=== PATIENT | female | born 1945 | race Caucasian/White ===

== ENCOUNTER 2016-03-14 08:00 | Outpatient (CLI) | payer MEDICARE, OTHER | END 2016-03-14 08:01 | disposition home or self-care (01) | DX: R30.0 Dysuria (principal) ==

== ENCOUNTER 2016-04-21 14:15 | Outpatient (CLI) | payer MEDICARE, OTHER | END 2016-04-21 14:16 | disposition home or self-care (01) | DX: E11.9 Type 2 diabetes mellitus without complications (principal); N39.0 Urinary tract infection, site not specified ==

== ENCOUNTER 2017-07-09 11:29 | Emergency (ER) | payer MEDICARE, OTHER ==
[2017-07-09] MEDS ORDERED: ACETAMINOPHEN 325 MG TABLET PO STA (12:23)
--- NOTE | 2017-07-09 12:28 | ED Physician Documentation ---
History of Present Illness - Stated complaint Stated Complaint: LEFT HAND INJ - Chief complaint Chief Complaint: Ext Problem - Additonal information Additional information: hx from pt two falls last two days first time going down a steep hill and may have lost balance second times was just in [employer] no trip [place] had balance issues for many months now - no work up thus tez no CP or palp no syncope did hit L face and is on blood thinneers denies CRAIG denies neck pain denies CP denies AP scraped knees but can walk irene wrist pain not ill recently Review of Systems Constitutional: denies: Fever Ears: denies: Ear pain, Drainage/discharge Nose: denies: Epistaxis Cardiac: denies: Chest pain / pressure, Palpitations Respiratory: denies: Dyspnea Musculoskeletal: reports: Extremity pain. denies: Neck pain Neurologic: reports: Head injury. 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 - Present Medications Home Medications: Ambulatory Orders Medication Instructions Recorded Confirmed Aspirin 07/09/17 Atorvastatin Calcium [Lipitor] 07/09/17 Carvedilol 07/09/17 Esomeprazole Magnesium [Nexium] 07/09/17 Gabapentin 07/09/17 Hydrocodone/Acetaminophen 07/09/17 [Hydrocodone-Acetamin 5-325 mg] Insulin Aspart [Novolog Flexpen] 07/09/17 Insulin Glargine [Lantus Solostar] 07/09/17 Oxycodone HCl/Acetaminophen 1 each PO Q6HR PRN #15 tablet 07/09/17 [Percocet 5-325 mg Tablet] Sertraline [Zoloft] 07/09/17 Telmisartan/Hydrochlorothiazid 07/09/17 [Micardis Hct 80-25 mg Tablet] - Allergies Allergies/Adverse Reactions: Allergies Allergy/AdvReac Type Severity Reaction Status Date / Time No Known Drug Allergies Allergy Verified 07/09/17 11:44 - Social History Does the pt smoke?: No Smoking Status: Never smoker Does the pt drink ETOH?: No Does the pt have substance abuse?: No PD ED PE NORMAL - Vitals Vital signs reviewed: Yes - HEENT HEENT: Atraumatic, PERRL - Neck Neck: No bony TTP - Cardiac Cardiac: RRR - Respiratory Respiratory: No respiratory distress, Clear bilaterally - Abdomen Abdomen: Soft, Non tender - Back Back: No spinal TTP - Derm Derm: Normal color - Extremities Extremities: Other (L wrist and hand bruised and swollen no deformity, R hand bruised and swollen no deformity, MSV intact, knee with small abrasions but no effuison and full ROM s pain and ambulatory) Results - Vitals Vitals: Vital Signs - 24 hr 07/09/17 07/09/17 11:37 13:53 Temperature 36.5 C 36.3 C L Heart Rate 77 70 Respiratory 16 18 Rate Blood Pressure 157/73 H 164/55 H O2 Saturation 100 98 Oxygen O2 Source Room air - EKG (time done) 1229 Rate: Rate (enter#) (74) Rhythm: NSR Intervals: Prolonged QT QRS: Poor R wave progression - Labs Labs: Laboratory Tests 07/09/17 07/09/17 07/09/17 12:04 12:15 12:33 WBC 7.1 RBC 4.05 L Hgb 13.4 Hct 37.2 MCV 91.9 MCH 33.0 H MCHC 35.9 RDW 13.7 Plt Count 158 MPV 8.1 Neut # 4.5 Lymph # 1.5 [place] # 0.6 Eos # 0.4 Baso # 0.1 Absolute Nucleated RBC 0.00 Nucleated RBC % 0.0 PT INR Sodium Potassium Chloride Carbon Dioxide Anion Gap BUN Creatinine Estimated GFR (MDRD) Glucose POC Whole Bld Glucose 200 H Calcium Urine Color YELLOW Urine Clarity CLEAR Urine pH 5.5 Ur Specific [place] 1.025 Urine Protein TRACE Urine Glucose (UA) >=1000 H Urine Ketones NEGATIVE Urine Occult Blood NEGATIVE Urine Nitrite NEGATIVE Urine Bilirubin NEGATIVE Urine Urobilinogen 0.2 (NORMAL) Ur Leukocyte Esterase NEGATIVE Ur Microscopic Review NOT INDICATED Urine Culture Comments NOT INDICATED 07/09/17 07/09/17 12:33 12:33 WBC RBC Hgb Hct MCV MCH MCHC RDW Plt Count MPV Neut # Lymph # [place] # Eos # Baso # Absolute Nucleated RBC Nucleated RBC % PT 12.2 INR 1.1 Sodium 138 Potassium 3.6 Chloride 103 Carbon Dioxide 30 Anion Gap 5.0 L BUN 15 Creatinine 0.7 Estimated GFR (MDRD) 82 L Glucose 203 H POC Whole Bld Glucose Calcium 8.8 Urine Color Urine Clarity Urine pH Ur Specific [place] Urine Protein Urine Glucose (UA) Urine Ketones Urine Occult Blood Urine Nitrite Urine Bilirubin Urine Urobilinogen Ur Leukocyte Esterase Ur Microscopic Review Urine Culture Comments - Rads (name of study) CTH Radiology: See rad report (no acute, atherosclerosis, chronic white matter, age atrophy) hands Radiology: See rad report (fx base L 5th MC, possible right wrist triquetral fx) PD MEDICAL DECISION MAKING - ED course ED course: EKG done for rhythm - pt has no CP SOA nausea etc - low concern for ACS - is in sinus, prolonged QT, got med list from PMD and reviewed and only med that might contribute is phenergan and hydrocodone - will dc phenergan and change to oxycodone Departure - Departure Disposition: 01 Home, Self Care Clinical Impression: Prolonged QT interval Hand fracture, left Qualifiers: Encounter type: initial encounter Fracture type: closed Qualified Code(s): S62.92XA - Unspecified fracture of left wrist and hand, initial encounter for closed fracture Wrist fracture, right Qualifiers: Encounter type: initial encounter Fracture type: closed Qualified Code(s): S62.101A - Fracture of unspecified carpal bone, right wrist, initial encounter for closed fracture Condition: Good Instructions: ED Fx Wrist General, ED Fx Hand Closed Follow-Up: [facility] [Provider Group] Prescriptions: Oxycodone HCl/Acetaminophen [Percocet 5-325 mg Tablet] 1 each PO Q6HR PRN #15 tablet PRN Reason: Severe Pain Comments: The CT of your head does not show any injury or bleeding There is a broken bone in your left hand and a possible broken bone in your right wrist. Please wear the splint we gave you on both arms and follow up with orthopedics for further care Ice and elevation to decrease the swelling Tylenol as needed for the pain Your labs were fine except the blood sugar of 200. The EKG shows you are in a regular rhythm - but the QT interval (the time it takes for heart to recover before the next beat) is a bit long - this is often caused by medications and so I reviewed your medication list and two of your meds (phenergan and hydrocodone) can cause this problem - I suggest you stop the phenergan all together and I wrote a new prescription of percocet which has oxycodone instead of hydrocodone. Please follow up with your PMD to see if changing these medications helps
[2017-07-09 12:38] LABS: BILIRUBIN,URINE NEGATIVE (NEGATIVE); GLUCOSE, URINE (UA) >=1000 mg/dL (NEGATIVE); KETONES,URINE (UA) NEGATIVE (NEGATIVE); LEUKOCYTE ESTERASE, URINE NEGATIVE (NEGATIVE); NITRITE,URINE NEGATIVE (NEGATIVE); OCCULT BLOOD,URINE NEGATIVE (NEGATIVE); PH,URINE 5.5 PH (5.0-7.5); PROTEIN,URINE TRACE mg/dL (NEGATIVE); UROBILINOGEN,URINE 0.2 (NORMAL) E.U./dL (NORMAL)
[2017-07-09 12:39] LABS: CLARITY,URINE CLEAR (CLEAR)
[2017-07-09 12:40] LABS: BASOPHILS # (AUTO) 0.1 10^3/uL (0.0-0.1); BASOPHILS % (AUTO) 0.9 %; EOSINOPHILS # (AUTO) 0.4 10^3/uL (0.0-0.7); EOSINOPHILS % (AUTO) 5.9 %; HGB - HEMOGLOBIN 13.4 g/dL (12.0-16.0); LYMPHOCYTES # (AUTO) 1.5 10^3/uL (1.5-3.5); LYMPHOCYTES % (AUTO) 20.7 %; MEAN CORPUSCULAR HGB CONC 35.9 g/dL (32.0-36.0); MEAN CORPUSCULAR VOLUME 91.9 fL (81.0-99.0); MEAN PLATELET VOLUME 8.1 fL (7.9-10.8); MONOCYTES # (AUTO) 0.6 10^3/uL (0.0-1.0); MONOCYTES % (AUTO) 8.8 %; NEUTROPHILS # (AUTO) 4.5 10^3/uL (1.5-6.6); NEUTROPHILS % (AUTO) 63.7 %; PLT - PLATELET COUNT 158 10^3/uL (130-450); RED BLOOD COUNT 4.05 10^6/uL (4.20-5.40); RED CELL DISTRIBUTION WIDTH 13.7 % (12.0-15.0); WHITE BLOOD COUNT 7.1 x10^3/uL (4.8-10.8)
[2017-07-09 12:47] LABS: INR 1.1 (0.8-1.2); PT - PROTHROMBIN TIME 12.2 secs (9.9-12.6)
--- NOTE | 2017-07-09 12:53 | CT Report ---
EXAM: CT HEAD EXAM DATE: 07/09/2017 12:44 PM. CLINICAL HISTORY: Fall. Head injury. On blood thinners. COMPARISON: None. TECHNIQUE: Multiaxial CT images were obtained from the foramen magnum to the vertex. Reformats: Coron al. IV contrast: None. In accordance with CT protocol optimization, one or more of the following dose reduction techniques w ere utilized for this exam: automated exposure control, adjustment of mA and/or KV based on patient s ize, or use of iterative reconstructive technique. FINDINGS: Parenchyma: No intraparenchymal hemorrhage. No or focal mass effect, midline shift, or CT findings of acute infarction. Cple-aj-cicrcmio patchy periventricular and supratentorial white matter hypodensit ies, consistent with chronic ischemic microangiopathy. Minor bilateral basal ganglia dystrophic calci fications. [place]-white differentiation is otherwise distinct. Extraaxial Spaces: Diffusely prominent, compatible with age-related generalized volume loss. No subdu ral or epidural collections identified. Ventricles: Normal position. Mildly prominent compatible with central volume loss. Sinuses and Orbits: Imaged paranasal sinuses, orbits, and mastoids show no significant abnormality. Bones: No evidence of fracture or calvarial defect. Other: Calcified cavernous carotids and distal right vertebral artery. IMPRESSION: 1. No acute intracranial abnormality evident. No intracranial hemorrhage, space-occupying lesion, or fracture. 2. Age-related generalized volume loss. Xkie-fz-vjtfppmy chronic white matter disease. 3. Atherosclerosis. [facility] Referring Provider Line: [phone] SITE ID: [id number]
--- NOTE | 2017-07-09 13:17 | XRAY Report ---
EXAMS: 1. Right Hand Radiography 2. Left Hand Radiography EXAM DATE: 07/09/2017 01:05 PM. CLINICAL HISTORY: Hand pain, trauma COMPARISON: None. TECHNIQUE: 3 views each hand. FINDINGS: Right: Bones: Bones are osteopenic. There are several bony foci at the dorsal margin of the carpal row. Joints: No evidence of dislocation. Soft Tissues: No significant abnormalities are seen. Left: Bones: There is cortical irregularity suspicious for fracture through the base of the fifth carpal. B ones are osteopenic. Joints: No evidence of dislocation. Joint spacing is maintained. Soft Tissues: No significant abnormalities are seen. IMPRESSION: 1. There is cortical irregularity through the base of the left fifth metacarpal. This is consistent w ith fracture. 2. Corticated bony foci at the dorsal margin of the right wrist could represent age indeterminate tri quetral fracture. Alternatively, this could represent soft tissue calcification or chondrocalcinosis. 3. No evidence of dislocation. [facility] Referring Provider Line: [phone] SITE ID: [id number]
--- NOTE | 2017-07-09 13:18 | XRAY Report ---
EXAM: LEFT WRIST RADIOGRAPHY EXAM DATE: 07/09/2017 01:06 PM. CLINICAL HISTORY: Fall FOOSH. COMPARISON: None. TECHNIQUE: 3 views. FINDINGS: Bones: Corticated bony focus at the dorsal margin of the carpal bones probably represents chondrocalc inosis rather than a triquetral fracture. Findings within the hand are detailed separately. Joints: No evidence of dislocation. There is chondrocalcinosis. Soft Tissues: No unexpected soft tissue findings. IMPRESSION: 1. No clear evidence of acute fracture of the wrist. 2. Corticated bony focus at the dorsal margin of the carpal bones probably represents chondrocalcinos is rather than remote triquetral fracture. 3. Hand findings are detailed separately. [facility] Referring Provider Line: [phone] SITE ID: [id number]
[2017-07-09 13:55] VITALS: BP 164/55
[2017-07-09 14:14] LABS: CALCIUM 8.8 mg/dL (8.5-10.3); CREATININE 0.7 mg/dL (0.4-1.0)
== END 2017-07-09 14:27 | disposition home or self-care (01) ==
LOC: ED 11:29
DX: S62.307A Unspecified fracture of fifth metacarpal bone, left hand, initial encounter for closed fracture (principal); S80.219A Abrasion, unspecified knee, initial encounter; Z79.82 Long term (current) use of aspirin; W19.XXXA Unspecified fall, initial encounter; Y92.512 Supermarket, store or market as the place of occurrence of the external cause; E11.9 Type 2 diabetes mellitus without complications; E78.00 Pure hypercholesterolemia, unspecified; Z79.4 Long term (current) use of insulin; S09.90XA Unspecified injury of head, initial encounter
CPT/HCPCS: 36415; 70450; 73110; 73130; 80048; 81003; 85025; 85610; 93005; 99283; A9270; 81001; 87086

== ENCOUNTER 2017-09-11 12:53 | Outpatient (CLI) | payer MEDICARE, OTHER ==
--- NOTE | 2017-09-13 08:46 | DEXA Report ---
Procedure Date: 09/11/2017 Accession Number: [id number] / [id number] Procedure: DEX - Dexa Spine and/or Hip CPT Code: FULL RESULT: EXAM: Dexa Spine and/or Hip DATE: 09/11/2017 2:08 PM CLINICAL HISTORY: POSTMENOPAUSAL STATUS TECHNIQUE: Dual energy x-ray absorptiometry (DXA) was performed on a [employer] System. Regions measured are the AP Spine, femoral neck, and if needed forearm. COMPARISON: None. In accordance with the International Society for Clinical Densitometry (ISCD) guidelines, data from previous exams may be reanalyzed using current recommendations and techniques. This is done to allow a more accurate basis for comparison with the current study. FINDINGS: The data for the lumbar spine is as follows: BMD (g/cm/cm) T-SCORE Z-SCORE REGION L1 1.271 1.2 2.0 L2 1.324 1.0 1.9 L3 1.439 2.0 2.8 L4 1.334 1.1 1.9 TOTAL 1.346 1.4 2.2 NOTE: All evaluable vertebrae are used for classification The data for the hip is as follows: BMD (g/cm/cm) T-SCORE Z-SCORE REGION Neck 0.738 -2.2 -0.9 TOTAL 0.752 -2.0 -1.0 NOTE: The femoral neck or total proximal femur, whichever is lowest, is used for classification. IMPRESSION: THE WHO CLASSIFICATION BASED ON THE INTERNATIONAL REFERENCE STANDARD IS OSTEOPENIA. THE FRACTURE RISK IS INCREASED. RECOMMENDATION: Patients with diagnosis of osteoporosis or osteopenia should have regular bone mineral density assessment. For those eligible for Medicare, routine testing is allowed once every 2 years. Testing frequency can be increased for patients who have rapidly progressing disease or for those who are receiving medical therapy to restore bone mass. COMMENT: World Health Organization (WHO) definitions for osteoporosis and osteopenia: NORMAL BMD: T-score at -1.0 or higher, fracture risk is low OSTEOPENIA BMD: T-score between -1.0 and -2.5, fracture risk is increased. OSTEOPOROSIS BMD: T-score at -2.5 or lower, fracture risk is high. National Osteoporosis Foundation recommends: 1. Obtain adequate dietary calcium (at least 1200 mg per day) and vitamin D (400-800 international units per day). 2. Participate, as appropriate, in regular weightbearing and muscle-strengthening exercise. 3. Avoid tobacco use and reduce alcohol and caffeine intake. 4. For more detailed information see the website at www.NOF.org.
== END 2017-09-11 12:54 | disposition home or self-care (01) ==
LOC: DI 12:53
PROVIDERS: ATTEND Family Medicine
DX: I35.0 Nonrheumatic aortic (valve) stenosis (principal); Z78.0 Asymptomatic menopausal state; M85.89 Other specified disorders of bone density and structure, multiple sites
CPT/HCPCS: 77080; 93306

== ENCOUNTER 2018-10-08 08:00 | Outpatient (CLI) | payer MEDICARE, OTHER ==
[2018-10-08 12:39] LABS: BASOPHILS % (AUTO) 0.5 %; EOSINOPHILS # (AUTO) 0.4 10^3/uL (0.0-0.7); EOSINOPHILS % (AUTO) 6.9 %; HGB - HEMOGLOBIN 12.2 g/dL (12.0-16.0); LYMPHOCYTES # (AUTO) 1.3 10^3/uL (1.5-3.5); LYMPHOCYTES % (AUTO) 23.2 %; MEAN CORPUSCULAR HEMOGLOBIN 32.5 pg (27.0-31.0); MEAN CORPUSCULAR HGB CONC 34.4 g/dL (32.0-36.0); MEAN CORPUSCULAR VOLUME 94.7 fL (81.0-99.0); MEAN PLATELET VOLUME 9.9 fL (7.9-10.8); MONOCYTES # (AUTO) 0.5 10^3/uL (0.0-1.0); NEUTROPHILS # (AUTO) 3.4 10^3/uL (1.5-6.6); NEUTROPHILS % (AUTO) 60.2 %; PLT - PLATELET COUNT 168 10^3/uL (130-450); RED BLOOD COUNT 3.75 10^6/uL (4.20-5.40); RED CELL DISTRIBUTION WIDTH 13.4 % (12.0-15.0); WHITE BLOOD COUNT 5.7 x10^3/uL (4.8-10.8)
[2018-10-08 13:08] LABS: HEMOGLOBIN A1C 0.86 g/dL; HEMOGLOBIN A1C % 8.2 % (4.6-6.2)
[2018-10-08 13:17] LABS: PLATELET MORPHOLOGY NORMAL APPEARANCE (NORMAL)
[2018-10-08 13:18] LABS: PLATELET ESTIMATE, MANUAL NORMAL (130-450,000) (NORMAL); RBC MORPHOLOGY (MULTIPLE) 1+ POLYCHROMASIA (NORMAL)
[2018-10-08 13:19] LABS: ALBUMIN 3.4 g/dL (3.2-5.5); ALBUMIN/GLOBULIN RATIO 1.3 (1.0-2.2); ALKALINE PHOSPHATASE 63 IU/L (42-121); ALT ALANINE AMINOTRANSFERASE 14 IU/L (10-60); AST ASPARTATE AMINOTRANSFERASE 15 IU/L (10-42); BILIRUBIN,TOTAL 0.9 mg/dL (0.2-1.0); BUN - BLOOD UREA NITROGEN 14 mg/dL (6-20); CARBON DIOXIDE - CO2 27 mmol/L (21-32); CHLORIDE 102 mmol/L (101-111); CHOLESTEROL 208 mg/dL; CREATININE 0.8 mg/dL (0.4-1.0); GFR - MDRD 70 (>89); GLUCOSE 179 mg/dL (70-100); HDL CHOLESTEROL 52 mg/dL; LDL CHOLESTEROL,CALCULATED 120 mg/dL; LDL/HDL RATIO 2.3 (<4.4); SODIUM 141 mmol/L (135-145); TOTAL PROTEIN 6.1 g/dL (6.7-8.2); VLDL CHOLESTEROL 36 mg/dL
== END 2018-10-08 23:59 | disposition home or self-care (01) ==
LOC: LAB.WCP 08:00
PROVIDERS: ATTEND Family Medicine
DX: I10 Essential (primary) hypertension (principal); E11.8 Type 2 diabetes mellitus with unspecified complications
CPT/HCPCS: 36415; 80053; 80061; 83036; 83721; 84443; 85025

== ENCOUNTER 2019-03-10 08:00 | Outpatient (CLI) | payer MEDICARE, OTHER | END 2019-03-10 23:59 | disposition home or self-care (01) | LOC: LAB.R 08:00 | PROVIDERS: ATTEND Physician Assistant Medical | DX: S81.809A Unspecified open wound, unspecified lower leg, initial encounter (principal) | CPT/HCPCS: 87070; 87205 ==

== ENCOUNTER 2019-05-06 08:00 | Outpatient (CLI) | payer MEDICARE, OTHER ==
[2019-05-06 18:46] LABS: BASOPHILS # (AUTO) 0.1 10^3/uL (0.0-0.1); BASOPHILS % (AUTO) 0.7 %; EOSINOPHILS # (AUTO) 0.4 10^3/uL (0.0-0.7); EOSINOPHILS % (AUTO) 5.7 %; HGB - HEMOGLOBIN 13.2 g/dL (12.0-16.0); LYMPHOCYTES # (AUTO) 1.5 10^3/uL (1.5-3.5); LYMPHOCYTES % (AUTO) 19.6 %; MEAN CORPUSCULAR HEMOGLOBIN 32.1 pg (27.0-31.0); MEAN CORPUSCULAR HGB CONC 33.8 g/dL (32.0-36.0); MEAN CORPUSCULAR VOLUME 94.9 fL (81.0-99.0); MEAN PLATELET VOLUME 10.1 fL (7.9-10.8); MONOCYTES # (AUTO) 0.6 10^3/uL (0.0-1.0); MONOCYTES % (AUTO) 7.6 %; PLT - PLATELET COUNT 218 10^3/uL (130-450); RED BLOOD COUNT 4.11 10^6/uL (4.20-5.40); RED CELL DISTRIBUTION WIDTH 13.4 % (12.0-15.0); WHITE BLOOD COUNT 7.5 x10^3/uL (4.8-10.8)
[2019-05-06 19:01] LABS: HB2 TOTAL 13.8 g/dL; HEMOGLOBIN A1C 0.96 g/dL; HEMOGLOBIN A1C % 8.5 % (4.6-6.2)
[2019-05-06 19:06] LABS: ALBUMIN 3.7 g/dL (3.2-5.5); ALBUMIN/GLOBULIN RATIO 1.3 (1.0-2.2); ALKALINE PHOSPHATASE 61 IU/L (42-121); ALT ALANINE AMINOTRANSFERASE 10 IU/L (10-60); AST ASPARTATE AMINOTRANSFERASE 15 IU/L (10-42); BILIRUBIN,TOTAL 0.7 mg/dL (0.2-1.0); BUN - BLOOD UREA NITROGEN 15 mg/dL (6-20); CALCIUM 10.5 mg/dL (8.5-10.3); CARBON DIOXIDE - CO2 28 mmol/L (21-32); CHLORIDE 103 mmol/L (101-111); CHOL/HDL RATIO 3.7 (<4.4); CHOLESTEROL 197 mg/dL; CREATININE 0.8 mg/dL (0.4-1.0); GFR - MDRD 70 (>89); GLUCOSE 67 mg/dL (70-100); HDL CHOLESTEROL 53 mg/dL; LDL CHOLESTEROL,CALCULATED 106 mg/dL; SODIUM 140 mmol/L (135-145); TOTAL PROTEIN 6.6 g/dL (6.7-8.2); VLDL CHOLESTEROL 38 mg/dL
== END 2019-05-06 23:59 | disposition home or self-care (01) ==
LOC: LAB.WCP 08:00
PROVIDERS: ATTEND Family Medicine
DX: E11.65 Type 2 diabetes mellitus with hyperglycemia (principal); L03.115 Cellulitis of right lower limb
CPT/HCPCS: 36415; 80053; 80061; 83036; 83721; 84443; 85025; 87070; 87205

== ENCOUNTER 2019-07-09 08:00 | Outpatient (CLI) | payer MEDICARE, OTHER | END 2019-07-09 23:59 | disposition home or self-care (01) | LOC: LAB.R 08:00 | PROVIDERS: ATTEND Family Medicine | DX: L03.115 Cellulitis of right lower limb (principal) | CPT/HCPCS: 87070; 87077; 87181; 87205 ==

== ENCOUNTER 2019-10-24 12:04 | Emergency (ER) | payer MEDICARE, OTHER ==
[2019-10-24] MEDS ORDERED: SODIUM CHLORIDE 0.9% 1,000 ML IV STA ×2 (13:00→14:19)
--- NOTE | 2019-10-24 13:02 | ED Physician Documentation ---
History of Present Illness - Stated complaint Stated Complaint: GLF - Chief complaint Chief Complaint: General - History obtained from History obtained from: Patient, Family - History of Present Illness Timing: Today - Additonal information Additional information: 74-year old diabetic female has become weak over the last 2 weeks she has been profoundly weak and today she collapsed when her left knee gave out. She did not injure herself in the fall. She is concerned about her weakness and this has progressed over the past week. She reports polyuria polydipsia and denies fever or other intercurrent illness. Review of Systems Constitutional: denies: Fever Eyes: denies: Decreased vision Ears: denies: Ear pain Nose: denies: Rhinorrhea / runny nose, Congestion Throat: denies: Sore throat Cardiac: denies: Chest pain / pressure, Palpitations Respiratory: denies: Dyspnea, Cough GI: denies: Abdominal Pain, Nausea, Vomiting : reports: Frequency. denies: Dysuria Skin: denies: Rash Musculoskeletal: denies: Neck pain, Back pain, Extremity pain Neurologic: reports: Generalized weakness, Near syncope. 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 - Present Medications Home Medications: Ambulatory Orders Medication Instructions Recorded Confirmed Aspirin 07/09/17 Atorvastatin Calcium [Lipitor] 07/09/17 Esomeprazole Magnesium [Nexium] 07/09/17 Gabapentin 07/09/17 Hydrocodone/Acetaminophen 07/09/17 [Hydrocodone-Acetamin 5-325 mg] Insulin Aspart [Novolog Flexpen] 07/09/17 Insulin Glargine [Lantus Solostar] 07/09/17 Oxycodone HCl/Acetaminophen 1 each PO Q6HR PRN #15 tablet 07/09/17 [Percocet 5-325 mg Tablet] Sertraline [Zoloft] 07/09/17 Telmisartan/Hydrochlorothiazid 07/09/17 [Micardis Hct 80-25 mg Tablet] carvediloL [Carvedilol] 07/09/17 - Allergies Allergies/Adverse Reactions: Allergies Allergy/AdvReac Type Severity Reaction Status Date / Time No Known Drug Allergies Allergy Verified 10/24/19 12:48 - Social History Does the pt smoke?: No Smoking Status: Never smoker Does the pt drink ETOH?: No Does the pt have substance abuse?: No PD ED PE NORMAL - Vitals Vital signs reviewed: Yes (Normal) - General General: Alert and oriented X 3, No acute distress, Well developed/nourished - HEENT HEENT: Atraumatic, PERRL, EOMI - Neck Neck: Supple, no meningeal sign, No bony TTP - Cardiac Cardiac: RRR, No murmur - Respiratory Respiratory: No respiratory distress, Clear bilaterally - Abdomen Abdomen: Soft, Non tender - Back Back: No CVA TTP, No spinal TTP - Derm Derm: Normal color, Warm and dry, No rash - Extremities Extremities: No deformity, No edema, Other (mild anterior calf erythema bilaterally no different from usual) - Neuro Neuro: Alert and oriented X 3, machine printer 2-12 intact, No motor deficit, No sensory deficit, Normal speech Eye Opening: Spontaneous Motor: Obeys Commands Verbal: Oriented GCS Score: 15 - Psych Psych: Normal mood, Normal affect Results - Vitals Vitals: Vital Signs - 24 hr 10/24/19 10/24/19 10/24/19 12:48 12:49 14:00 Temperature 36.8 C Heart Rate 92 85 82 Respiratory 16 16 16 Rate Blood Pressure 130/76 145/68 H 140/78 H O2 Saturation 99 100 99 10/24/19 10/24/19 10/24/19 15:00 16:15 16:29 Temperature 36.9 C 36.7 C Heart Rate 85 79 85 Respiratory 16 17 16 Rate Blood Pressure 155/76 H 148/69 H 145/86 H O2 Saturation 99 100 99 Oxygen O2 Source Room air - Labs Labs: Laboratory Tests 10/24/19 10/24/19 10/24/19 12:14 12:34 12:34 WBC 5.5 RBC 3.88 L Hgb 13.0 Hct 35.9 L MCV 92.5 MCH 33.5 H MCHC 36.2 H RDW 12.4 Plt Count 216 MPV 10.1 Neut # (Auto) 3.4 Lymph # (Auto) 1.3 L [place] # (Auto) 0.4 Eos # (Auto) 0.4 Baso # (Auto) 0.0 Absolute Nucleated RBC 0.00 Nucleated RBC % 0.0 Sodium 134 L Potassium 3.7 Chloride 101 Carbon Dioxide 24 Anion Gap 9.0 BUN 15 Creatinine 0.7 Estimated GFR (MDRD) 81 L Glucose 430 H POC Whole Bld Glucose 419 H Calcium 9.5 Total Bilirubin 0.8 AST 13 ALT 12 Alkaline Phosphatase 70 Total Protein 6.3 L Albumin 3.4 Globulin 2.9 Albumin/Globulin Ratio 1.2 Lipase 49 Urine Color Urine Clarity Urine pH Ur Specific [place] Urine Protein Urine Glucose (UA) Urine Ketones Urine Occult Blood Urine Nitrite Urine Bilirubin Urine Urobilinogen Ur Leukocyte Esterase Ur Microscopic Review Urine Culture Comments 10/24/19 10/24/19 10/24/19 13:48 15:31 16:00 WBC RBC Hgb Hct MCV MCH MCHC RDW Plt Count MPV Neut # (Auto) Lymph # (Auto) [place] # (Auto) Eos # (Auto) Baso # (Auto) Absolute Nucleated RBC Nucleated RBC % Sodium Potassium Chloride Carbon Dioxide Anion Gap BUN Creatinine Estimated GFR (MDRD) Glucose POC Whole Bld Glucose 292 H 281 H Calcium Total Bilirubin AST ALT Alkaline Phosphatase Total Protein Albumin Globulin Albumin/Globulin Ratio Lipase Urine Color YELLOW Urine Clarity CLEAR Urine pH 5.0 Ur Specific [place] 1.015 Urine Protein NEGATIVE Urine Glucose (UA) >=1000 H Urine Ketones NEGATIVE Urine Occult Blood NEGATIVE Urine Nitrite NEGATIVE Urine Bilirubin NEGATIVE Urine Urobilinogen 0.2 (NORMAL) Ur Leukocyte Esterase NEGATIVE Ur Microscopic Review NOT INDICATED Urine Culture Comments NOT INDICATED 10/24/19 16:20 WBC RBC Hgb Hct MCV MCH MCHC RDW Plt Count MPV Neut # (Auto) Lymph # (Auto) [place] # (Auto) Eos # (Auto) Baso # (Auto) Absolute Nucleated RBC Nucleated RBC % Sodium Potassium Chloride Carbon Dioxide Anion Gap BUN Creatinine Estimated GFR (MDRD) Glucose POC Whole Bld Glucose 236 H Calcium Total Bilirubin AST ALT Alkaline Phosphatase Total Protein Albumin Globulin Albumin/Globulin Ratio Lipase Urine Color Urine Clarity Urine pH Ur Specific [place] Urine Protein Urine Glucose (UA) Urine Ketones Urine Occult Blood Urine Nitrite Urine Bilirubin Urine Urobilinogen Ur Leukocyte Esterase Ur Microscopic Review Urine Culture Comments PD MEDICAL DECISION MAKING - ED course Complexity details: reviewed results, re-evaluated patient, considered differential, d/w patient ED course: 74-year-old female with acute dehydration related to diabetes [id number] is administered intravenous saline and insulin. She has insulin at home and is able to do a sliding scale and after 2 L of fluid she is discharged home with the recommendation to continue resuscitation with subcu insulin to reduce the blood sugar below 200. Departure - Departure Disposition: 01 Home, Self Care Clinical Impression: Dehydration Uncontrolled diabetes mellitus Qualifiers: Diabetes mellitus type: type 2 Glycemic state: with hyperglycemia Qualified Code(s): E11.65 - Type 2 diabetes mellitus with hyperglycemia Condition: Stable Instructions: ED Hyperglycemia Diabetic, ED Dehydration Follow-Up: Laya Lutz DO [Primary Care Provider] - Discharge Date/Time: 10/24/19 16:33
[2019-10-24 13:19] LABS: BASOPHILS % (AUTO) 0.7 %; EOSINOPHILS # (AUTO) 0.4 10^3/uL (0.0-0.7); EOSINOPHILS % (AUTO) 6.9 %; LYMPHOCYTES # (AUTO) 1.3 10^3/uL (1.5-3.5); MEAN CORPUSCULAR HEMOGLOBIN 33.5 pg (27.0-31.0); MEAN CORPUSCULAR HGB CONC 36.2 g/dL (32.0-36.0); MEAN CORPUSCULAR VOLUME 92.5 fL (81.0-99.0); MEAN PLATELET VOLUME 10.1 fL (7.9-10.8); MONOCYTES # (AUTO) 0.4 10^3/uL (0.0-1.0); MONOCYTES % (AUTO) 7.6 %; NEUTROPHILS # (AUTO) 3.4 10^3/uL (1.5-6.6); NEUTROPHILS % (AUTO) 61.4 %; PLT - PLATELET COUNT 216 10^3/uL (130-450); RED BLOOD COUNT 3.88 10^6/uL (4.20-5.40); RED CELL DISTRIBUTION WIDTH 12.4 % (12.0-15.0); WHITE BLOOD COUNT 5.5 x10^3/uL (4.8-10.8)
[2019-10-24 13:34] LABS: ALBUMIN 3.4 g/dL (3.2-5.5); ALBUMIN/GLOBULIN RATIO 1.2 (1.0-2.2); BILIRUBIN,TOTAL 0.8 mg/dL (0.2-1.0); CALCIUM 9.5 mg/dL (8.5-10.3); CREATININE 0.7 mg/dL (0.4-1.0); TOTAL PROTEIN 6.3 g/dL (6.7-8.2)
[2019-10-24 14:11] LABS: BILIRUBIN,URINE NEGATIVE (NEGATIVE); CLARITY,URINE CLEAR (CLEAR); GLUCOSE, URINE (UA) >=1000 mg/dL (NEGATIVE); KETONES,URINE (UA) NEGATIVE (NEGATIVE); LEUKOCYTE ESTERASE, URINE NEGATIVE (NEGATIVE); NITRITE,URINE NEGATIVE (NEGATIVE); OCCULT BLOOD,URINE NEGATIVE (NEGATIVE); PROTEIN,URINE NEGATIVE (NEGATIVE); UROBILINOGEN,URINE 0.2 (NORMAL) E.U./dL (NORMAL)
[2019-10-24] MEDS ORDERED: INSULIN REGULAR HUMAN 100 UNIT/1 ML 10 ML MDV IVP STA (15:15)
[2019-10-24 16:33] VITALS: BP 145/86
== END 2019-10-24 16:33 | disposition home or self-care (01) ==
LOC: ED 12:04
DX: E86.0 Dehydration (principal); E11.65 Type 2 diabetes mellitus with hyperglycemia; Z79.4 Long term (current) use of insulin; Z79.82 Long term (current) use of aspirin
CPT/HCPCS: 36415; 80053; 81003; 83690; 85025; 96360; 96361; 99283; 99284; J1815; 81001; 87086

== ENCOUNTER 2019-11-14 07:00 | Outpatient (CLI) | payer MEDICARE, OTHER ==
[2019-11-14 20:19] LABS: HEMOGLOBIN A1c% 9.1 % (4.27-6.07)
== END 2019-11-14 23:59 | disposition home or self-care (01) ==
LOC: LAB.WCP 07:00
PROVIDERS: ATTEND Family Medicine
DX: E11.9 Type 2 diabetes mellitus without complications (principal)
CPT/HCPCS: 36415; 83036

== ENCOUNTER 2020-04-20 07:00 | Outpatient (CLI) | payer MEDICARE, OTHER ==
[2020-04-20 18:03] LABS: BASOPHILS # (AUTO) 0.1 10^3/uL (0.0-0.1); BASOPHILS % (AUTO) 0.9 %; EOSINOPHILS # (AUTO) 0.4 10^3/uL (0.0-0.7); EOSINOPHILS % (AUTO) 6.3 %; HGB - HEMOGLOBIN 12.3 g/dL (12.0-16.0); LYMPHOCYTES # (AUTO) 1.4 10^3/uL (1.5-3.5); LYMPHOCYTES % (AUTO) 23.9 %; MEAN CORPUSCULAR HEMOGLOBIN 33.5 pg (27.0-31.0); MEAN CORPUSCULAR VOLUME 95.6 fL (81.0-99.0); MEAN PLATELET VOLUME 10.2 fL (7.9-10.8); MONOCYTES # (AUTO) 0.4 10^3/uL (0.0-1.0); MONOCYTES % (AUTO) 7.2 %; NEUTROPHILS # (AUTO) 3.5 10^3/uL (1.5-6.6); NEUTROPHILS % (AUTO) 61.3 %; PLT - PLATELET COUNT 159 10^3/uL (130-450); RED BLOOD COUNT 3.67 10^6/uL (4.20-5.40); RED CELL DISTRIBUTION WIDTH 12.9 % (12.0-15.0); WHITE BLOOD COUNT 5.7 x10^3/uL (4.8-10.8)
[2020-04-20 18:13] LABS: ALBUMIN 3.3 g/dL (3.2-5.5); ALBUMIN/GLOBULIN RATIO 1.2 (1.0-2.2); BILIRUBIN,TOTAL 0.7 mg/dL (0.2-1.0); CREATININE 0.8 mg/dL (0.4-1.0); TOTAL PROTEIN 6.1 g/dL (6.7-8.2)
== END 2020-04-20 23:59 | disposition home or self-care (01) ==
LOC: LAB.N 07:00
PROVIDERS: ATTEND Nurse Practitioner
DX: R60.0 Localized edema (principal)
CPT/HCPCS: 36415; 80053; 83880; 85025

== ENCOUNTER 2020-06-17 08:00 | Outpatient (CLI) | payer MEDICARE, OTHER ==
[2020-06-17 18:15] LABS: BASOPHILS % (AUTO) 0.6 %; EOSINOPHILS # (AUTO) 0.3 10^3/uL (0.0-0.7); HCT - HEMATOCRIT 39.1 % (37.0-47.0); HGB - HEMOGLOBIN 13.6 g/dL (12.0-16.0); LYMPHOCYTES # (AUTO) 1.4 10^3/uL (1.5-3.5); LYMPHOCYTES % (AUTO) 21.7 %; MEAN CORPUSCULAR HEMOGLOBIN 33.7 pg (27.0-31.0); MEAN CORPUSCULAR HGB CONC 34.8 g/dL (32.0-36.0); MEAN CORPUSCULAR VOLUME 96.8 fL (81.0-99.0); MEAN PLATELET VOLUME 10.5 fL (7.9-10.8); MONOCYTES # (AUTO) 0.5 10^3/uL (0.0-1.0); MONOCYTES % (AUTO) 7.5 %; NEUTROPHILS # (AUTO) 4.3 10^3/uL (1.5-6.6); NEUTROPHILS % (AUTO) 65.9 %; PLT - PLATELET COUNT 159 10^3/uL (130-450); RED BLOOD COUNT 4.04 10^6/uL (4.20-5.40); RED CELL DISTRIBUTION WIDTH 13.4 % (12.0-15.0); WHITE BLOOD COUNT 6.5 x10^3/uL (4.8-10.8)
[2020-06-17 18:21] LABS: ALBUMIN 3.5 g/dL (3.2-5.5); ALBUMIN/GLOBULIN RATIO 1.3 (1.0-2.2); ALKALINE PHOSPHATASE 69 IU/L (42-121); ALT ALANINE AMINOTRANSFERASE 16 IU/L (10-60); AST ASPARTATE AMINOTRANSFERASE 17 IU/L (10-42); BILIRUBIN,TOTAL 1.1 mg/dL (0.2-1.0); BUN - BLOOD UREA NITROGEN 15 mg/dL (6-20); CALCIUM 9.5 mg/dL (8.5-10.3); CARBON DIOXIDE - CO2 27 mmol/L (21-32); CHLORIDE 105 mmol/L (101-111); CHOL/HDL RATIO 4.4 (<4.4); CHOLESTEROL 224 mg/dL; CREATININE 0.7 mg/dL (0.4-1.0); GFR - MDRD 81 (>89); GLUCOSE 110 mg/dL (70-100); HDL CHOLESTEROL 51 mg/dL; LDL CHOLESTEROL,CALCULATED 122 mg/dL; LDL/HDL RATIO 2.4 (<4.4); POTASSIUM 3.6 mmol/L (3.5-5.0); SODIUM 141 mmol/L (135-145); TOTAL PROTEIN 6.3 g/dL (6.7-8.2); TRIGLYCERIDES 256 mg/dL; VLDL CHOLESTEROL 51 mg/dL
[2020-06-17 18:33] LABS: THYROID STIMULATING HORMONE 2.91 uIU/mL (0.34-5.60)
[2020-06-17 20:17] LABS: ESTIMATED AVERAGE GLUCOSE 243 mg/dL (70-100); HEMOGLOBIN A1c% 10.1 % (4.27-6.07)
== END 2020-06-17 23:59 | disposition home or self-care (01) ==
LOC: LAB.WCP 08:00
PROVIDERS: ATTEND Family Medicine
DX: E11.8 Type 2 diabetes mellitus with unspecified complications (principal)
CPT/HCPCS: 36415; 80053; 80061; 83036; 83721; 84443; 85025

== ENCOUNTER 2020-07-17 13:18 | Outpatient (CLI) | payer MEDICARE, OTHER | END 2020-07-17 13:19 | disposition critical access hospital (66) | LOC: EMS 13:18 | DX: R10.9 Unspecified abdominal pain (principal); R19.7 Diarrhea, unspecified | CPT/HCPCS: A0425; A0427 ==

== ENCOUNTER 2020-07-17 13:34 | Inpatient (IN) | payer MEDICARE, OTHER ==
[2020-07-17] MEDS ORDERED: SODIUM CHLORIDE 0.9% 1,000 ML IV STA (14:01)
--- NOTE | 2020-07-17 14:04 | ED Physician Documentation ---
History of Present Illness - Stated complaint Stated Complaint: GLF - Chief complaint Chief Complaint: General - History obtained from History obtained from: Patient, Family - Additonal information Additional information: 75-year-old woman with past medical history of diabetes, dementia presents with difficulty taking her medications at home. She also had a fall around noon today and was unable to get up until 1 PM. Patient endorses generalized weakness but denies specific injury from the fall. Denies head trauma and is not on blood thinners. endorses nausea and mild diffuse gradual onset aching abd pain that is nonradiating. Review of Systems Ten Systems: 10 systems reviewed and negative Constitutional: reports: Myalgias, Fatigue. denies: Fever, Chills Cardiac: denies: Chest pain / pressure Respiratory: denies: Dyspnea GI: reports: Abdominal Pain, Nausea. denies: Vomiting Neurologic: reports: Generalized weakness, Other (fall from standing). 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: Hysterectomy, Oophrectomy - Present Medications Home Medications: Ambulatory Orders Medication Instructions Recorded Confirmed Aspirin 81 mg ORAL DAILY 07/09/17 Atorvastatin Calcium [Lipitor] 07/09/17 Esomeprazole Magnesium [Nexium] 07/09/17 Gabapentin 07/09/17 Hydrocodone/Acetaminophen 07/09/17 [Hydrocodone-Acetamin 5-325 mg] Insulin Aspart [Novolog Flexpen] 07/09/17 Insulin Glargine [Lantus Solostar] 07/09/17 Oxycodone HCl/Acetaminophen 1 each PO Q6HR PRN #15 tablet 07/09/17 [Percocet 5-325 mg Tablet] Sertraline [Zoloft] 07/09/17 Telmisartan/Hydrochlorothiazid 1 tab ORAL BID 07/09/17 [Micardis Hct 80-25 mg Tablet] carvediloL [Carvedilol] 25 mg ORAL BID 07/09/17 - Allergies Allergies/Adverse Reactions: Allergies Allergy/AdvReac Type Severity Reaction Status Date / Time No Known Drug Allergies Allergy Verified 07/17/20 13:55 - Social History Does the pt smoke?: No Smoking Status: Never smoker Does the pt drink ETOH?: No Does the pt have substance abuse?: No PD ED PE NORMAL - Vitals Vital signs reviewed: Yes - General General: Alert and oriented X 3, No acute distress, Well developed/nourished - HEENT HEENT: Atraumatic, PERRL, EOMI, Moist mucous membranes, Pharynx benign - Neck Neck: Supple, no meningeal sign, No bony TTP - Cardiac Cardiac: Other (tachycardic rate, regular rhythm) - Respiratory Respiratory: No respiratory distress, Clear bilaterally - Abdomen Abdomen: Non tender, Non distended, Other (pelvis stable. no chest wall ttp) - Back Back: No CVA TTP, No spinal TTP - Derm Derm: Normal color, Warm and dry - Extremities Extremities: No deformity - Neuro Neuro: No motor deficit, No sensory deficit, Other (alert at baseline) - Psych Psych: Normal mood, Normal affect Results - Vitals Vitals: Vital Signs - 24 hr 07/17/20 07/17/20 07/17/20 13:48 14:11 16:06 Temperature 36.5 C Heart Rate 98 93 104 H Respiratory 31 H 20 24 Rate Blood Pressure 223/92 H 122/109 H O2 Saturation 100 97 100 Oxygen O2 Source Room air - Labs Labs: Laboratory Tests 07/17/20 07/17/20 07/17/20 14:40 14:45 14:45 WBC RBC Hgb Hct MCV MCH MCHC RDW Plt Count MPV Neut # (Auto) Lymph # (Auto) [place] # (Auto) Eos # (Auto) Baso # (Auto) Absolute Nucleated RBC Nucleated RBC % VBG pH VBG pCO2 VBG pO2 VBG HCO3 VBG Total CO2 VBG O2 Saturation VBG Base Excess Sodium 138 Potassium 4.7 Chloride 100 L Carbon Dioxide 16 L Anion Gap 22.0 H BUN 18 Creatinine 1.1 H Estimated GFR (MDRD) 48 L Glucose 539 H* Calcium 9.5 Total Bilirubin 2.6 H AST 15 ALT 16 Alkaline Phosphatase 81 Total Creatine Kinase 123 Total Protein 6.6 L Albumin 3.8 Globulin 2.8 Albumin/Globulin Ratio 1.4 Lipase 21 L Urine Color YELLOW Urine Clarity CLEAR Urine pH 5.5 Ur Specific [place] 1.025 Urine Protein TRACE Urine Glucose (UA) >=1000 H Urine Ketones >=80 H Urine Occult Blood SMALL H Urine Nitrite NEGATIVE Urine Bilirubin NEGATIVE Urine Urobilinogen 0.2 (NORMAL) Ur Leukocyte Esterase NEGATIVE Urine RBC 0-5 Urine WBC 0-3 Ur Squamous Epith Cells FEW Squamous Urine Bacteria None Seen Urine Yeast PRESENT Ur Microscopic Review INDICATED Urine Culture Comments NOT INDICATED Serum Ketones SMALL H 07/17/20 07/17/20 14:57 14:57 WBC 11.7 H RBC 4.50 Hgb 15.0 Hct 40.9 MCV 90.9 MCH 33.3 H MCHC 36.7 H RDW 12.6 Plt Count 163 MPV 10.3 Neut # (Auto) 10.3 H Lymph # (Auto) 0.8 L [place] # (Auto) 0.5 Eos # (Auto) 0.0 Baso # (Auto) 0.0 Absolute Nucleated RBC 0.00 Nucleated RBC % 0.0 VBG pH 7.247 L VBG pCO2 34.9 L VBG pO2 29.7 VBG HCO3 14.9 L VBG Total CO2 15.9 L VBG O2 Saturation 53.9 L VBG Base Excess -11.3 L Sodium Potassium Chloride Carbon Dioxide Anion Gap BUN Creatinine Estimated GFR (MDRD) Glucose Calcium Total Bilirubin AST ALT Alkaline Phosphatase Total Creatine Kinase Total Protein Albumin Globulin Albumin/Globulin Ratio Lipase Urine Color Urine Clarity Urine pH Ur Specific [place] Urine Protein Urine Glucose (UA) Urine Ketones Urine Occult Blood Urine Nitrite Urine Bilirubin Urine Urobilinogen Ur Leukocyte Esterase Urine RBC Urine WBC Ur Squamous Epith Cells Urine Bacteria Urine Yeast Ur Microscopic Review Urine Culture Comments Serum Ketones PD MEDICAL DECISION MAKING - ED course ED course: Patient in DKA. d/w Dr. Adams for admission to ICU. Departure - Departure Disposition: 66 [facility] DC/Xfer Clinical Impression: DKA (diabetic ketoacidoses), Fall from standing, Difficulty taking medication
[2020-07-17 14:46] LABS: BILIRUBIN,URINE NEGATIVE (NEGATIVE); GLUCOSE, URINE (UA) >=1000 mg/dL (NEGATIVE); KETONES,URINE (UA) >=80 mg/dL (NEGATIVE); LEUKOCYTE ESTERASE, URINE NEGATIVE (NEGATIVE); NITRITE,URINE NEGATIVE (NEGATIVE); OCCULT BLOOD,URINE SMALL (NEGATIVE); PH,URINE 5.5 PH (5.0-7.5); PROTEIN,URINE TRACE mg/dL (NEGATIVE); UROBILINOGEN,URINE 0.2 (NORMAL) E.U./dL (NORMAL)
[2020-07-17 14:49] LABS: CLARITY,URINE CLEAR (CLEAR)
[2020-07-17 14:53] LABS: BACTERIA,URINE None Seen /HPF (None Seen); RBC,URINE 0-5 /HPF (0-5); SQUAMOUS EPITHELIAL CELL,UR FEW Squamous (<= Few); WBC,URINE 0-3 /HPF (0-5); YEAST,URINE PRESENT
[2020-07-17 15:17] LABS: VBG BASE EXCESS -11.3 mmol/L (-2 - +2); VBG HCO3 14.9 mmol/L (23-28); VBG OXYGEN SATURATION 53.9 % (60-80); VBG PCO2 34.9 mmHg (41-51); VBG PH 7.247 (7.31-7.41); VBG PO2 29.7 mmHg (25-47); VBG TOTAL CO2 15.9 mmol/L (24-29)
[2020-07-17 15:18] LABS: KETONES, SERUM (ACETEST) SMALL (NEGATIVE)
[2020-07-17 15:20] LABS: BASOPHILS % (AUTO) 0.3 %; HCT - HEMATOCRIT 40.9 % (37.0-47.0); LYMPHOCYTES # (AUTO) 0.8 10^3/uL (1.5-3.5); LYMPHOCYTES % (AUTO) 7.2 %; MEAN CORPUSCULAR HEMOGLOBIN 33.3 pg (27.0-31.0); MEAN CORPUSCULAR HGB CONC 36.7 g/dL (32.0-36.0); MEAN CORPUSCULAR VOLUME 90.9 fL (81.0-99.0); MEAN PLATELET VOLUME 10.3 fL (7.9-10.8); MONOCYTES # (AUTO) 0.5 10^3/uL (0.0-1.0); MONOCYTES % (AUTO) 4.3 %; NEUTROPHILS # (AUTO) 10.3 10^3/uL (1.5-6.6); NEUTROPHILS % (AUTO) 87.7 %; PLT - PLATELET COUNT 163 10^3/uL (130-450); RED CELL DISTRIBUTION WIDTH 12.6 % (12.0-15.0); WHITE BLOOD COUNT 11.7 x10^3/uL (4.8-10.8)
[2020-07-17 15:28] LABS: ALBUMIN 3.8 g/dL (3.2-5.5); ALBUMIN/GLOBULIN RATIO 1.4 (1.0-2.2); ALKALINE PHOSPHATASE 81 IU/L (42-121); ALT ALANINE AMINOTRANSFERASE 16 IU/L (10-60); AST ASPARTATE AMINOTRANSFERASE 15 IU/L (10-42); BILIRUBIN,TOTAL 2.6 mg/dL (0.2-1.0); BUN - BLOOD UREA NITROGEN 18 mg/dL (6-20); CALCIUM 9.5 mg/dL (8.5-10.3); CARBON DIOXIDE - CO2 16 mmol/L (21-32); CHLORIDE 100 mmol/L (101-111); CREATININE 1.1 mg/dL (0.4-1.0); GFR - MDRD 48 (>89); LIPASE 21 U/L (22-51); POTASSIUM 4.7 mmol/L (3.5-5.0); SODIUM 138 mmol/L (135-145); TOTAL PROTEIN 6.6 g/dL (6.7-8.2)
[2020-07-17] MEDS ORDERED: LOSARTAN 50 MG TABLET PO STA (15:30)
[2020-07-17] MEDS ORDERED: hydroCHLOROthiazide 25 MG TABLET PO STA (15:30)
[2020-07-17] MEDS ORDERED: carvediloL 12.5 MG TABLET PO STA (15:30)
[2020-07-17 15:35] LABS: GLUCOSE 539 mg/dL (70-100)
[2020-07-17] MEDS ORDERED: POTASSIUM CHLOR 10 MEQ/100 ML 10 MEQ/100 ML BAG IV STA (15:56)
[2020-07-17] MEDS ORDERED: INSULIN REGULAR HUMAN 100 UNIT in SODIUM CHLORIDE 0.9% 100ML 99 ML IV STA (15:57)
[2020-07-17] MEDS ORDERED: INSULIN REGULAR HUMAN 100 UNIT/1 ML 10 ML MDV IVP STA (15:57)
[2020-07-17] MEDS ORDERED: ONDANSETRON 4 MG/2 ML VIAL IVP STA (16:31)
--- NOTE | 2020-07-17 16:36 | HISTORY & PHYSICAL EXAMINATION ---
Chief Complaint - Chief Complaint Chief Complaint: nausea, s/p fall History of Present Illness - Admitted From Admitted From:: [facility] ED - History Obtained From Records Reviewed: yes History obtained from: patient and - History of Present Illness HPI Comment/Other: Patient is a 75-year-old female whose medical history includes diabetes mellitus on insulin who was brought to the ED by EMS after family called 911. She fell at home and her and son were unable to get her up. As a result they called 911 who then brought her to the emergency room for evaluation. Her who is at bedside helps to provide the history and reports that she has been nauseous and experiencing chills throughout today. It is unclear if her fall was mechanical fall or due to weakness. She denies hitting her head or passing out. She has been experiencing increased urinary frequency. She denied abdominal pain, chest pain or dyspnea. Patient appears somewhat lethargic and is unable to give a very reliable history. She has significantly dry oral mucosa. She also appears very unkempt. Work-up in the ED showed Blood glucose of 539, anion gap 22 pH of 7.24 Bicarb of 14.9 on VBG. As a result she was presented for admission for further management. 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: Hysterectomy, Oophrectomy - Family & Social History Family History Comment/Other: No significant family history reported Living arrangement: At home Living Situation: With family Social History Notes: She does not smoke tobacco products, drink alcohol or use recreational substances - POLST Patient has POLST: No POLST Status: Full Code Meds/Allgy - Home Medications Home Medications: Ambulatory Orders Medication Instructions Recorded Confirmed Aspirin 81 mg ORAL DAILY 07/09/17 Insulin Aspart [Novolog Flexpen] 35 units SQ AC 07/09/17 Insulin Glargine [Lantus Solostar] 60 units SQ DAILY 07/09/17 carvediloL [Carvedilol] 25 mg ORAL BID 07/09/17 Promethazine [Phenergan] 25 mg PO Q6H PRN 07/18/20 Telmisartan [Micardis] 80 mg PO BID 07/18/20 Triamcinolone 0.1% Oint 1 applic TOP BID 07/18/20 - Allergies Allergies/Adverse Reactions: Allergies Allergy/AdvReac Type Severity Reaction Status Date / Time No Known Drug Allergies Allergy Verified 07/17/20 13:55 Review of Systems - Constitutional Constitutional: reports: Fatigue, Chills, Weakness, Other (lethargic). denies: Fever - Eyes Eyes: denies: Pain, Vision loss - Ears, Nose & Throat Ears, Nose & Throat: denies: Sore throat - Cardiovascular Cariovascular: reports: Edema (trace). denies: Irregular heart rate, Palpitations, Chest pain - Respiratory Respiratory: denies: Cough, Wheezing, SOB at rest, SOB with exertion - Gastrointestinal Gastrointestinal: reports: Nausea, Reflux/heartburn. denies: Abdominal pain, Abdominal distention, Diarrhea, Vomiting, Coffee grounds emesis - Genitourinary Genitourinary: reports: Frequency. denies: Dysuria, Urgency, Hematuria, Incontinence - Musculoskeletal Musculoskeletal: denies: Muscle pain, Back pain, Muscle aches - Integumentary Integumentary: denies: Rash, Pruritis - Neurological Neurological: reports: General weakness. denies: Focal weakness, Headache, Dizziness - Psychiatric Psychiatric: reports: Depression, Anxiety - Endocrine Endocrine: denies: Polyuria, Polydypsia - Hematologic/Lymphatic Hematologic/Lymphatic: denies: Anemia, Bruising, Petechiae Prior Level of Functionality: Patient is normally independent of activities of daily living Exam - Vital Signs Vital Signs: Vital Signs x48h Temp Pulse Resp BP Pulse Ox 07/17/20 16:06 104 H 24 100 07/17/20 14:11 93 20 122/109 H 97 07/17/20 13:48 36.5 C 98 31 H 223/92 H 100 - Physical Exam General Appearance: positive: No acute distress, Lethargic, Other (weak) Eyes Bilateral: positive: PERRL, EOMI ENT: positive: Dry mucous membranes Neck: positive: No JVD, Trachea midline Respiratory: positive: Chest non-tender, No respiratory distress, Breath sounds nml. negative: Wheezes, Rales, Rhonchi Cardiovascular: positive: Regular rate & rhythm, Systolic murmur Abdomen: positive: Non-tender, No organomegaly, Nml bowel sounds, No distention. negative: Guarding, Rebound Back: positive: Nml inspection Skin: positive: No rash, Other (lower extremity hyperemia) Extremities: positive: Non-tender, Full ROM, Nml appearance, Pedal edema (trace) Neurologic/Psychiatric: positive: Other (awake orientedX2 but lethargic) Conclusion/Plan - Problem List (1) DKA (diabetic ketoacidoses) Conclusion/Plan: Blood glucose 539. AG 22. pH 7.24 Patient received 1 L of normal saline bolus in the ED Another 1L of NS bolus ordered. Then will continue IV hydration with NS at 125ml/hr DKA protocol intiatiated. Patient admitted to the ICU Insulin drip started per DKA protocol Qualifiers: Diabetes mellitus type: type 2 (2) Dehydration Conclusion/Plan: Cr 1.1 with eGFR 48. Patient received 1 L of normal saline bolus in the ED Another 1L of NS bolus ordered. Then will continue IV hydration with NS at 125ml/hr (3) Hyperlipidemia Conclusion/Plan: On atorvastatin 80mg po daily (4) Depression with anxiety Conclusion/Plan: On sertraline 25mg po daily (5) GERD (gastroesophageal reflux disease) Conclusion/Plan: Protonix 40mg po daily (6) Peripheral neuropathy Conclusion/Plan: On gabapentin 300mg po qhs (7) Hypertension Conclusion/Plan: Will resume telmisartan/hctz once verified Carvedilol 25mg po bid Hydralazine 10mg IV q4hrs prn for SBP > 160 - Lab Results Fish Bones: 07/19/20 04:30 07/19/20 04:30 Core Measures - Anticipated LOS I expect patient to be DC'd or transferred within 96 hours.: Yes - DVT/VTE - Prophylaxis VTE/DVT Device ordered at admit?: Yes VTE/DVT Prophylaxis med ordered at admit?: Yes
[2020-07-17] MEDS ORDERED: SODIUM CHLORIDE 0.9% 1,000 ML IV SCH (17:00)
[2020-07-17] MEDS ORDERED: SODIUM CHLORIDE 0.9% 1,000 ML IV ONE (17:07)
[2020-07-17] MEDS: INSULIN REGULAR HUMAN 100 UNIT in SODIUM CHLORIDE 0.9% 100ML 99 ML IV SCH (17:30)
[2020-07-17 17:42] LABS: CORONAVIRUS 229E-RESP PCR NOT DETECTED; CORONAVIRUS HKU1-RESP PCR NOT DETECTED; CORONAVIRUS NL63-RESP PCR NOT DETECTED; CORONAVIRUS OC43-RESP PCR NOT DETECTED; HUMAN METAPNEUMOVIRUS NOT DETECTED; INFLUENZA A- RESP PCR PANEL NOT DETECTED; RHINOVIRUS/ENTEROVIRUS NOT DETECTED; SARS-CoV-2 -RESP PCR PANEL NOT DETECTED
[2020-07-17 17:43] LABS: B. PARAPERTUSSIS- RESP PCR PAN NOT DETECTED; B. PERTUSSIS- RESP PCR PANEL NOT DETECTED; C. PNEUMONIAE- RESP PCR PANEL NOT DETECTED; INFLUENZA B - RESP PCR PANEL NOT DETECTED; M. PNEUMONIAE- RESP PCR PANEL NOT DETECTED; PARAINFLUENZA VIRUS 1 NOT DETECTED; PARAINFLUENZA VIRUS 2 NOT DETECTED; PARAINFLUENZA VIRUS 3 NOT DETECTED; PARAINFLUENZA VIRUS 4 NOT DETECTED; RSV- RESP PCR PANEL NOT DETECTED
[2020-07-17] MEDS ORDERED: hydrALAZINE INJ 20 MG/ML VIAL IVP PRN (17:51)
[2020-07-17] MEDS ORDERED: hydrALAZINE INJ 20 MG/ML VIAL IVP ONE (17:57)
--- NOTE | 2020-07-17 18:13 | ANESTHESIA PROCEDURE NOTE ---
Anesth Central Line Template - Central Line Central Line Preparation: Consent Obtained, Time out completed, Ultrasound used, Sterile prep and drape Central line location: Right IJ Central line type: Triple lumen Central line catheter tip site resides: Superior vena cava (SVC) Central line aftercare: Chlorhexidine disc placed, Secured, Placement confirmed, No pneumothorax, No complications, Bundle checklist complete, Pt tolerated well
[2020-07-17] MEDS: ONDANSETRON 4 MG/2 ML VIAL IVP PRN (18:15)
[2020-07-17 18:24] LABS: VBG BASE EXCESS -15.4 mmol/L (-2 - +2); VBG HCO3 11.1 mmol/L (23-28); VBG OXYGEN SATURATION 85.5 % (60-80); VBG PCO2 29.1 mmHg (41-51); VBG PH 7.2 (7.31-7.41); VBG PO2 55.5 mmHg (25-47)
--- NOTE | 2020-07-17 18:44 | XRAY Report ---
PROCEDURE: Chest for Line Placement INDICATIONS: central line placement TECHNIQUE: One view of the chest was acquired. COMPARISON: None. FINDINGS: Surgical changes and devices: There is a right internal jugular catheter with the tip extending to th e region of the cavoatrial junction. Lungs and pleura: No pleural effusions or pneumothorax. There is pulmonary vascular prominence misa tible with edema. A few linear left basilar opacities likely represent atelectasis. Mediastinum: Mediastinal contours appear normal. Heart size is normal. Bones and chest wall: No suspicious bony lesions. Overlying soft tissues appear unremarkable. IMPRESSION: 1. No evidence of pneumothorax. 2. Pulmonary vascular prominence compatible with pulmonary edema. Reviewed by: Ambrosio Ernst MD on 07/17/2020 6:43 PM PDT Approved by: Ambrosio Ernst MD on 07/17/2020 6:43 PM PDT Station ID: [id number]
[2020-07-17 18:49] LABS: CALCIUM 9.3 mg/dL (8.5-10.3); CREATININE 1.1 mg/dL (0.4-1.0); MAGNESIUM 1.4 mg/dL (1.7-2.8); POTASSIUM 3.7 mmol/L (3.5-5.0)
[2020-07-17] MEDS ORDERED: MAGNESIUM SULFATE 2 GRAM 2 GM/50 ML BAG IV ONE (19:31)
[2020-07-17] MEDS ORDERED: POTASSIUM CHLOR 10 MEQ/100 ML 10 MEQ/100 ML BAG IV ONE ×2 (19:31→21:39)
[2020-07-17 19:38] LABS: HCT - HEMATOCRIT 39.6 % (37.0-47.0); MEAN CORPUSCULAR HEMOGLOBIN 34.1 pg (27.0-31.0); MEAN CORPUSCULAR HGB CONC 37.9 g/dL (32.0-36.0); MEAN PLATELET VOLUME 10.1 fL (7.9-10.8); RED BLOOD COUNT 4.4 10^6/uL (4.20-5.40); RED CELL DISTRIBUTION WIDTH 12.6 % (12.0-15.0); WHITE BLOOD COUNT 14.8 x10^3/uL (4.8-10.8)
[2020-07-17] MEDS: SODIUM CHLORIDE FLUSH 0.9% 10 ML SYRINGE IVP SCH ×2 (19:46→23:46)
[2020-07-17] MEDS: carvediloL 12.5 MG TABLET PO SCH ×2 (19:46→21:20)
[2020-07-17] MEDS: DEXTROSE 5%-0.45% NACL 1,000 ML IV SCH ×2 (19:46→21:10)
[2020-07-17] MEDS: SODIUM CHLORIDE 0.9% 1,000 ML IV SCH (20:17)
[2020-07-17] MEDS: SODIUM CHLORIDE FLUSH 0.9% 10 ML SYRINGE IVP PRN ×2 (20:55→23:46)
[2020-07-17 21:06] LABS: CREATININE 0.8 mg/dL (0.4-1.0); MAGNESIUM 2.2 mg/dL (1.7-2.8); POTASSIUM 3.6 mmol/L (3.5-5.0)
[2020-07-17] MEDS: NYSTATIN POWDER 15 GM TOP SCH (21:15)
[2020-07-17] MEDS: GABAPENTIN 300 MG CAPSULE PO SCH (21:21)
[2020-07-17] MEDS ORDERED: SODIUM CHLORIDE 0.9% 250 ML IV ONE (21:51)
[2020-07-17] MEDS: HYDROcod/ACETAM 5/325 MG TABLET PO PRN (22:32)
[2020-07-17] MEDS: NEUTRA-PHOS 250 MG TABLET PO SCH (22:32)
[2020-07-17] MEDS ORDERED: POTASSIUM PHOSPHATE 15 MMOL in SODIUM CHLORIDE 0.9% 250 ML IV ONE (22:40)
[2020-07-18] MEDS ORDERED: SODIUM CHLORIDE 0.9% 1,000 ML IV ONE ×2 (00:20→06:49)
[2020-07-18] MEDS ORDERED: POTASSIUM CHLOR 10 MEQ/100 ML 10 MEQ/100 ML BAG IV ONE ×2 (00:43→03:49)
[2020-07-18] MEDS: DEXTROSE 5%-0.45% NACL 1,000 ML IV SCH ×2 (00:44→05:08)
[2020-07-18] MEDS: NEUTRA-PHOS 250 MG TABLET PO SCH (01:04)
[2020-07-18] MEDS ORDERED: INSULIN REGULAR HUMAN 100 UNIT/1 ML 10 ML MDV ONE (01:55)
[2020-07-18] MEDS ORDERED: SODIUM CHLORIDE 0.9% 500 ML IV PRN (02:53)
[2020-07-18] MEDS ORDERED: SODIUM CHLORIDE FLUSH 0.9% 10 ML SYRINGE IVP PRN (02:53)
[2020-07-18] MEDS: INSULIN REGULAR HUMAN 100 UNIT in SODIUM CHLORIDE 0.9% 100ML 99 ML IV SCH (03:04)
[2020-07-18 03:32] LABS: BASOPHILS % (AUTO) 0.1 %; HCT - HEMATOCRIT 34.2 % (37.0-47.0); HGB - HEMOGLOBIN 12.7 g/dL (12.0-16.0); LYMPHOCYTES # (AUTO) 1.5 10^3/uL (1.5-3.5); LYMPHOCYTES % (AUTO) 10.1 %; MEAN CORPUSCULAR HEMOGLOBIN 33.6 pg (27.0-31.0); MEAN CORPUSCULAR HGB CONC 37.1 g/dL (32.0-36.0); MEAN CORPUSCULAR VOLUME 90.5 fL (81.0-99.0); MEAN PLATELET VOLUME 9.8 fL (7.9-10.8); MONOCYTES # (AUTO) 1.3 10^3/uL (0.0-1.0); MONOCYTES % (AUTO) 8.7 %; NEUTROPHILS # (AUTO) 11.7 10^3/uL (1.5-6.6); NEUTROPHILS % (AUTO) 80.5 %; PLT - PLATELET COUNT 213 10^3/uL (130-450); RED BLOOD COUNT 3.78 10^6/uL (4.20-5.40); RED CELL DISTRIBUTION WIDTH 12.7 % (12.0-15.0); WHITE BLOOD COUNT 14.5 x10^3/uL (4.8-10.8)
[2020-07-18 03:35] LABS: CALCIUM, IONIZED 1.21 mmol/L (1.15-1.33); VBG PH 7.352 (7.31-7.41)
[2020-07-18 03:46] LABS: CALCIUM 8.5 mg/dL (8.5-10.3); CREATININE 1.1 mg/dL (0.4-1.0); MAGNESIUM 1.8 mg/dL (1.7-2.8); PHOSPHORUS 2.1 mg/dL (2.5-4.6); POTASSIUM 3.3 mmol/L (3.5-5.0)
[2020-07-18] MEDS: SODIUM CHLORIDE 0.9% 1,000 ML IV SCH ×3 (05:05→18:11)
[2020-07-18] MEDS: PANTOPRAZOLE 40 MG TABLET PO SCH (06:44)
--- NOTE | 2020-07-18 07:23 | PROVIDER PROGRESS NOTE ---
Assessment/Plan - Problem List (1) DKA (diabetic ketoacidoses) Qualifiers: Diabetes mellitus type: type 2 Assessment/Plan: Insulin drip was discontinued this morning. Patient is on high-dose sliding scale insulin. Lantus 10 units nightly ordered. Patient's hemoglobin A1c is 10.4. It appears she has been very noncompliant with diabetic management at home. She is on a carb controlled diet. (2) Leukocytosis Assessment/Plan: Etiology undetermined. Patient's white blood cell count increased from 11.7 up to 14.8. Repeat urine analysis was unremarkable. Chest x-ray did not show any cardiopulmonary process. Lactic acid is within normal range, there is no erythema or to indicate an active/acute skin infection. Patient has been afebrile. Blood cultures were obtained. We will continue to monitor. Will not administer antibiotics at this time. (3) Dehydration Assessment/Plan: Despite 3 L bolus of IV hydration yesterday and continued fluids at 125 mils per hour, the patient's blood pressure dropped to the 80s and required Levophed. She was given another 1-1/2 L bolus of fluid today and is currently on normal saline at 150 mL/h. Systolic blood pressure is between 114 and 125. We will attempt to wean off Levophed as tolerated. Carvedilol has been held for now. Her creatinine increased from 0.8 to 1.1 this morning. Her GFR dropped from 70 to 48. Urine output has been low. Will continue to monitor. Anticipate further improvement. (4) Hyperlipidemia Assessment/Plan: On atorvastatin 80mg po daily (5) Depression with anxiety Assessment/Plan: On sertraline 25mg po daily (6) GERD (gastroesophageal reflux disease) Assessment/Plan: Protonix 40mg po daily (7) Peripheral neuropathy Assessment/Plan: On gabapentin 300mg po qhs (8) Hypertension Assessment/Plan: We will hold antihypertensives for now. Patient is currently on Levophed due to hypotension - Current Meds Current Meds: Current Medications Generic Name Dose Route Start Last Admin Trade Name Freq PRN Reason Stop Dose Admin Hydrocodone Bitart/Acetaminophen 1 tab 07/17/20 21:49 07/17/20 22:32 Hydrocod/Acetam 5/325 Mg Tablet PO 1 tab Q4HR PRN Administration PAIN Carvedilol 25 mg 07/17/20 09:00 07/17/20 21:20 Carvedilol 12.5 Mg Tablet PO 25 mg BID RUBIN Administration Gabapentin 300 mg 07/17/20 21:00 07/17/20 21:21 Gabapentin 300 Mg Capsule PO 300 mg QPM RUBIN Administration Dextrose/Sodium Chloride 1,000 mls @ 125 mls/hr 07/17/20 17:00 07/18/20 06:58 D5.45ns IV 125 mls/hr .Q8H RUBIN Infusion Insulin Human Regular 100 unit 100 mls @ 11.793 mls/hr 07/17/20 17:00 11/30 06:10 / Sodium Chloride IV 8.9 unit/hr .Q8H29M RUBIN 8.9 mls/hr Titration Protocol 11.793 UNIT/HR Norepinephrine Bitartrate 8 mg 250 mls @ 15 mls/hr 07/18/20 03:00 07/18/20 06:58 / Dextrose IV 16 mcg/min .[id number] RUBIN 30 mls/hr Titration Protocol 8 MCG/MIN Sodium Chloride 1,000 mls @ 999 mls/hr 07/18/20 06:49 07/18/20 06:56 Normal Saline 0.9% IV 07/18/20 07:49 999 mls/hr ONCE ONE Administration Nystatin 1 applic 07/17/20 21:00 07/17/20 21:15 Nystatin Powder 15 Gm TOP 1 applic BID RUBIN Administration Ondansetron HCl 4 mg 07/17/20 16:33 07/17/20 18:15 Ondansetron 4 Mg/2 Ml Vial IVP 4 mg Q6HR PRN Administration Nausea / Vomiting Pantoprazole Sodium 40 mg 07/18/20 07:00 07/18/20 06:44 Pantoprazole 40 Mg Tablet PO 40 mg QDAC RUBIN Administration Sodium Chloride 10 ml 07/17/20 17:00 07/17/20 23:46 Sodium Chloride Flush 0.9% 10 Ml Syringe IVP 10 ml 0100,0900,1700 RUBIN Administration Sodium Chloride 10 ml 07/17/20 16:33 07/17/20 23:46 Sodium Chloride Flush 0.9% 10 Ml Syringe IVP 20 ml PRN PRN Administration NEEDED PER PROVIDER ORDERS - Lab Result Fish Bone Diagrams: 07/18/20 03:15 07/18/20 03:15 - Additional Planning My Orders: My Active Orders 07/17/20 09:00 carvediloL [Coreg] 25 mg PO BID 07/17/20 16:33 Activity Orders [RC] Q2HR Daily Weight [RC] 0600 IO [RC] Q1HR Initiate Bowel Care Protocol [RC] QSHIFT Initiate ICU Electrolyte Prot. [RC] .protocol Initiate Line Care Protocol [RC] .protocol Initiate Personal Care Protoco [RC] .protocol Vital Signs [RC] Q1HR Ondansetron Inj [Zofran Inj] 4 mg IVP Q6HR PRN Sodium Chloride Flush 0.9% [Normal Saline Flush 0.9%] 10 ml IVP PRN PRN Code Status [OTHERS] Routine Condition of Patient [OTHERS] Routine DVT Prophylaxis [OTHERS] Routine 07/17/20 16:35 Oxygen Therapy [RC] .PRN SCDs [RC] QSHIFT Telemetry- [RC] Q4HR 07/17/20 16:37 Initiate DKA RN Protocol [RC] .protocol Initiate Hypoglycemia Protocol [RC] .protocol 07/17/20 17:00 Dextrose 5%-0.45% NaCl [D5.45ns] 1,000 ml IV 125 mls/hr Sodium Chloride 0.9% 100Ml [Normal Saline 0.9% 100Ml] 99 ml Insulin Regular Human [NovoLIN R] 100 unit IV 11.793 unit/hr Sodium Chloride Flush 0.9% [Normal Saline Flush 0.9%] 10 ml IVP 0100,0900,1700 07/17/20 17:10 Central Line Care [RC] Q4H 07/17/20 17:51 hydrALAZINE INJ [Apresoline Inj] 10 mg IVP Q4H PRN 07/17/20 21:00 Gabapentin [Neurontin] 300 mg PO QPM 07/18/20 Blood Culture [CULTURE, BLOOD #1] [] Stat Blood Culture [CULTURE, BLOOD #2] [] Stat 07/18/20 02:53 Sodium Chloride 0.9% [Normal Saline 0.9%] 500 ml IV Q24H Sodium Chloride Flush 0.9% [Normal Saline Flush 0.9%] 20 ml IVP PRN PRN 07/18/20 03:15 HEMOGLOBIN A1c% [CHEM] DAILYLAB 07/18/20 07:00 Pantoprazole [Protonix] 40 mg PO QDAC 07/18/20 07:22 LACTIC ACID, VENOUS [CHEM] Stat URINALYSIS, Reflex to Micro & Cult If [UA, MICROSCOPIC & CULT IF] [URIN] Stat 07/18/20 09:00 Aspirin EC [Ecotrin] 81 mg PO DAILY Enoxaparin [Lovenox] 40 mg SUBQ DAILY Sertraline [Zoloft] 25 mg PO DAILY 07/19/20 05:00 BMP - BASIC METABOLIC PANEL [CHEM] DAILYLAB CALCIUM, IONIZED ([facility]) [BG] DAILYLAB CBC - COMP BLD CT W/AUTO DIFF [HEME] DAILYLAB MAGNESIUM [CHEM] DAILYLAB PHOSPHORUS [CHEM] DAILYLAB 07/20/20 05:00 BMP - BASIC METABOLIC PANEL [CHEM] DAILYLAB CALCIUM, IONIZED ([facility]) [BG] DAILYLAB CBC - COMP BLD CT W/AUTO DIFF [HEME] DAILYLAB MAGNESIUM [CHEM] DAILYLAB PHOSPHORUS [CHEM] DAILYLAB 07/21/20 05:00 BMP - BASIC METABOLIC PANEL [CHEM] DAILYLAB CBC - COMP BLD CT W/AUTO DIFF [HEME] DAILYLAB 07/22/20 05:00 BMP - BASIC METABOLIC PANEL [CHEM] DAILYLAB CBC - COMP BLD CT W/AUTO DIFF [HEME] DAILYLAB Subjective - Subjective Patient Reports: Other (She is much more alert and awake today than at time of admission yesterday. She denies any complaints. However in the cause of answering a question she would appear to space out. Her blood pressure has been very low and required Levophed initiated last night. Urine output was low.) Objective Vital Signs: Vital Signs - 24 hr 07/17/20 07/17/20 07/17/20 13:48 14:11 16:06 Temperature 36.5 C Heart Rate 98 93 104 H Heart Rate [ Monitoring electrodes] Respiratory 31 H 20 24 Rate Blood Pressure 223/92 H 122/109 H Blood Pressure [Right Brachial artery] O2 Saturation 100 97 100 07/17/20 07/17/20 07/17/20 17:40 18:30 18:45 Temperature 99 C H Heart Rate Heart Rate [ 108 H 101 H 107 H Monitoring electrodes] Respiratory 15 17 24 Rate Blood Pressure 161/75 H Blood Pressure 201/112 H 161/75 H 137/64 H [Right Brachial artery] O2 Saturation 100 99 0507/17/20 07/17/20 19:00 20:00 20:14 Temperature 36.6 C Heart Rate Heart Rate [ 103 H 100 Monitoring electrodes] Respiratory 24 26 H Rate Blood Pressure Blood Pressure 128/64 135/62 H [Right Brachial artery] O2 Saturation 98 99 07/17/20 07/17/20 07/17/20 21:00 22:00 23:00 Temperature Heart Rate Heart Rate [ 99 94 91 Monitoring electrodes] Respiratory 24 22 24 Rate Blood Pressure Blood Pressure 134/63 H 125/60 97/47 L [Right Brachial artery] O2 Saturation 99 97 94 07/17/20 07/18/20 07/18/20 23:54 00:03 00:30 Temperature 37.3 C Heart Rate Heart Rate [ 87 83 Monitoring electrodes] Respiratory 25 H Rate Blood Pressure Blood Pressure 88/45 L 76/40 L [Right Brachial artery] O2 Saturation 93 07/18/20 07/18/20 07/18/20 00:45 01:00 01:15 Temperature Heart Rate Heart Rate [ 83 87 87 Monitoring electrodes] Respiratory 21 Rate Blood Pressure Blood Pressure 70/38 L 92/48 L 94/49 L [Right Brachial artery] O2 Saturation 95 07/18/20 07/18/20 07/18/20 02:15 02:20 02:25 Temperature Heart Rate Heart Rate [ 81 81 81 Monitoring electrodes] Respiratory 16 Rate Blood Pressure Blood Pressure 74/39 L 76/44 L 79/44 L [Right Brachial artery] O2 Saturation 96 07/18/20 07/18/20 07/18/20 02:30 02:35 02:40 Temperature Heart Rate Heart Rate [ 81 79 78 Monitoring electrodes] Respiratory Rate Blood Pressure Blood Pressure 85/47 L 85/44 L 77/62 L [Right Brachial artery] O2 Saturation 07/18/20 07/18/20 07/18/20 02:45 02:50 03:00 Temperature Heart Rate Heart Rate [ 78 78 78 Monitoring electrodes] Respiratory 16 Rate Blood Pressure Blood Pressure 86/46 L 88/43 L 80/44 L [Right Brachial artery] O2 Saturation 95 07/18/20 07/18/20 07/18/20 03:05 03:10 03:15 Temperature Heart Rate Heart Rate [ 78 77 79 Monitoring electrodes] Respiratory Rate Blood Pressure Blood Pressure 87/45 L 89/45 L 86/51 L [Right Brachial artery] O2 Saturation 07/18/20 07/18/20 07/18/20 03:20 03:25 03:31 Temperature Heart Rate Heart Rate [ 79 78 78 Monitoring electrodes] Respiratory Rate Blood Pressure Blood Pressure 90/44 L 95/57 L 100/45 L [Right Brachial artery] O2 Saturation 07/18/20 07/18/20 07/18/20 03:45 03:55 04:00 Temperature 36.7 C Heart Rate Heart Rate [ 78 80 78 Monitoring electrodes] Respiratory 14 Rate Blood Pressure Blood Pressure 91/47 L 93/48 L 93/47 L [Right Brachial artery] O2 Saturation 07/18/20 07/18/20 07/18/20 04:05 04:10 04:15 Temperature Heart Rate Heart Rate [ 78 80 80 Monitoring electrodes] Respiratory Rate Blood Pressure Blood Pressure 105/48 L 103/51 L 103/47 L [Right Brachial artery] O2 Saturation 07/18/20 07/18/20 07/18/20 04:30 04:45 05:00 Temperature Heart Rate Heart Rate [ 82 81 79 Monitoring electrodes] Respiratory 14 Rate Blood Pressure Blood Pressure 103/52 L 106/48 L 105/50 L [Right Brachial artery] O2 Saturation 95 07/18/20 07/18/20 06:00 07:00 Temperature Heart Rate Heart Rate [ 81 78 Monitoring electrodes] Respiratory 14 16 Rate Blood Pressure Blood Pressure 103/48 L 96/49 L [Right Brachial artery] O2 Saturation 97 97 Oxygen O2 Source Room air I&O (Last 24 Hrs): Intake and Output Totals x24h 07/16/20 07/17/20 07/18/20 23:59 23:59 23:59 Intake Total 3048.239 2413.194 Output Total 225 1692 Balance 2823.239 721.194 General: Alert, Oriented x3, No acute distress HEENT: PERRLA, EOMI Neck: Supple, No JVD Neuro: Alert, Non Focal, Oriented Times 3 Cardiovascular: Regular rate, Other (systolic murmur (known)) Respiratory: Chest non-tender, No respiratory distress, Breath sounds nml Abdomen: Normal bowel sounds, Soft, No tenderness Extremities: No clubbing, No cyanosis, No edema, No tenderness/swelling Skin: No rashes Comments/Notes: chronic venostasis on lower extremities - Results Results: Laboratory Results WBC 14.5 x10^3/uL (4.8-10.8) H 07/18/20 03:15 RBC 3.78 10^6/uL (4.20-5.40) L 07/18/20 03:15 Hgb 12.7 g/dL (12.0-16.0) 07/18/20 03:15 Hct 34.2 % (37.0-47.0) L 07/18/20 03:15 MCV 90.5 fL (81.0-99.0) 07/18/20 03:15 MCH 33.6 pg (27.0-31.0) H 07/18/20 03:15 MCHC 37.1 g/dL (32.0-36.0) H 07/18/20 03:15 RDW 12.7 % (12.0-15.0) 07/18/20 03:15 Plt Count 213 10^3/uL (130-450) 07/18/20 03:15 MPV 9.8 fL (7.9-10.8) 07/18/20 03:15 Neut # (Auto) 11.7 10^3/uL (1.5-6.6) H 07/18/20 03:15 Lymph # (Auto) 1.5 10^3/uL (1.5-3.5) 07/18/20 03:15 [place] # (Auto) 1.3 10^3/uL (0.0-1.0) H 07/18/20 03:15 Eos # (Auto) 0.0 10^3/uL (0.0-0.7) 07/18/20 03:15 Baso # (Auto) 0.0 10^3/uL (0.0-0.1) 07/18/20 03:15 Absolute Nucleated RBC 0.00 x10^3/uL 07/18/20 03:15 Nucleated RBC % 0.0 /100WBC 07/18/20 03:15 VBG pH 7.352 (7.31-7.41) 07/18/20 03:15 VBG pCO2 29.1 mmHg (41-51) L 07/17/20 18:05 VBG pO2 55.5 mmHg (25-47) H 07/17/20 18:05 VBG HCO3 11.1 mmol/L (23-28) L 07/17/20 18:05 VBG Total CO2 12.0 mmol/L (24-29) L 07/17/20 18:05 VBG O2 Saturation 85.5 % (60-80) H 07/17/20 18:05 VBG Base Excess -15.4 mmol/L (-2 - +2) L 07/17/20 18:05 Ionized Calcium 1.21 mmol/L (1.15-1.33) 07/18/20 03:15 Sodium 140 mmol/L (135-145) 07/18/20 03:15 Potassium 3.3 mmol/L (3.5-5.0) L 07/18/20 03:15 Chloride 109 mmol/L (101-111) 07/18/20 03:15 Carbon Dioxide 23 mmol/L (21-32) 07/18/20 03:15 Anion Gap 8.0 (6-13) 07/18/20 03:15 BUN 23 mg/dL (6-20) H 07/18/20 03:15 Creatinine 1.1 mg/dL (0.4-1.0) H 07/18/20 03:15 Estimated GFR (MDRD) 48 (>89) L 07/18/20 03:15 Glucose 164 mg/dL (70-100) H 07/18/20 03:15 Calcium 8.5 mg/dL (8.5-10.3) 07/18/20 03:15 Phosphorus 2.1 mg/dL (2.5-4.6) L 07/18/20 03:15 Magnesium 1.8 mg/dL (1.7-2.8) 07/18/20 03:15 Total Bilirubin 2.6 mg/dL (0.2-1.0) H 07/17/20 14:45 AST 15 IU/L (10-42) 07/17/20 14:45 ALT 16 IU/L (10-60) 07/17/20 14:45 Alkaline Phosphatase 81 IU/L (42-121) 07/17/20 14:45 Total Creatine Kinase 123 IU/L (22-269) 07/17/20 14:45 Total Protein 6.6 g/dL (6.7-8.2) L 07/17/20 14:45 Albumin 3.8 g/dL (3.2-5.5) 07/17/20 14:45 Globulin 2.8 g/dL (2.1-4.2) 07/17/20 14:45 Albumin/Globulin Ratio 1.4 (1.0-2.2) 07/17/20 14:45 Lipase 21 U/L (22-51) L 07/17/20 14:45 Urine Color YELLOW 07/17/20 14:40 Urine Clarity CLEAR (CLEAR) 07/17/20 14:40 Urine pH 5.5 PH (5.0-7.5) 07/17/20 14:40 Ur Specific [place] 1.025 (1.002-1.030) 07/17/20 14:40 Urine Protein TRACE mg/dL (NEGATIVE) 07/17/20 14:40 Urine Glucose (UA) >=1000 mg/dL (NEGATIVE) H 07/17/20 14:40 Urine Ketones >=80 mg/dL (NEGATIVE) H 07/17/20 14:40 Urine Occult Blood SMALL (NEGATIVE) H 07/17/20 14:40 Urine Nitrite NEGATIVE (NEGATIVE) 07/17/20 14:40 Urine Bilirubin NEGATIVE (NEGATIVE) 07/17/20 14:40 Urine Urobilinogen 0.2 (NORMAL) E.U./dL (NORMAL) 07/17/20 14:40 Ur Leukocyte Esterase NEGATIVE (NEGATIVE) 07/17/20 14:40 Urine RBC 0-5 /HPF (0-5) 07/17/20 14:40 Urine WBC 0-3 /HPF (0-5) 07/17/20 14:40 Ur Squamous Epith Cells FEW Squamous (<= Few) 07/17/20 14:40 Urine Bacteria None Seen /HPF (None Seen) 07/17/20 14:40 Urine Yeast PRESENT 07/17/20 14:40 Ur Microscopic Review INDICATED 07/17/20 14:40 Urine Culture Comments NOT INDICATED 07/17/20 14:40 Nasal Adenovirus (PCR) NOT DETECTED 07/17/20 16:45 Nasal B. parapertussis DNA (PCR) NOT DETECTED 07/17/20 16:45 Nasal Coronavir 229E PCR NOT DETECTED 07/17/20 16:45 Nasal Coronavir HKU1 PCR NOT DETECTED 07/17/20 16:45 Nasal Coronavir NL63 PCR NOT DETECTED 07/17/20 16:45 Nasal Coronavir OC43 PCR NOT DETECTED 07/17/20 16:45 Nasal Enterovir/Rhinovir PCR NOT DETECTED 07/17/20 16:45 Nasal Influenza B PCR NOT DETECTED 07/17/20 16:45 Nasal Influenza A PCR NOT DETECTED 07/17/20 16:45 Nasal Parainfluen 1 PCR NOT DETECTED 07/17/20 16:45 Nasal Parainfluen 2 PCR NOT DETECTED 07/17/20 16:45 Nasal Parainfluen 3 PCR NOT DETECTED 07/17/20 16:45 Nasal Parainfluen 4 PCR NOT DETECTED 07/17/20 16:45 Nasal RSV (PCR) NOT DETECTED 07/17/20 16:45 Nasal Screen MRSA (PCR) NEGATIVE (NEGATIVE) 07/17/20 17:32 Nasal B.pertussis DNA PCR NOT DETECTED 07/17/20 16:45 Nasal C.pneumoniae (PCR) NOT DETECTED 07/17/20 16:45 Esvin Human Metapneumo PCR NOT DETECTED 07/17/20 16:45 Nasal M.pneumoniae (PCR) NOT DETECTED 07/17/20 16:45 Nasal SARS-CoV-2 (PCR) NOT DETECTED 07/17/20 16:45 Serum Ketones SMALL (NEGATIVE) H 07/17/20 14:45 ABX Reporting Has patient been on IV antibiotics over the past 48 hours?: No
[2020-07-18] MEDS: POTASSIUM CHLOR 20 MEQ/100 ML 20 MEQ/100 ML BAG IV SCH ×2 (07:55→08:58)
[2020-07-18 08:21] LABS: GLUCOSE, URINE (UA) >=1000 mg/dL (NEGATIVE); KETONES,URINE (UA) >=80 mg/dL (NEGATIVE); LEUKOCYTE ESTERASE, URINE NEGATIVE (NEGATIVE); NITRITE,URINE NEGATIVE (NEGATIVE); OCCULT BLOOD,URINE NEGATIVE (NEGATIVE); PROTEIN,URINE TRACE mg/dL (NEGATIVE); UROBILINOGEN,URINE 0.2 (NORMAL) E.U./dL (NORMAL)
[2020-07-18 08:26] LABS: CLARITY,URINE CLEAR (CLEAR)
[2020-07-18 08:27] LABS: BILIRUBIN,URINE MODERATE (NEGATIVE); ICTOTEST,URINE POSITIVE
[2020-07-18] MEDS: ASPIRIN EC 81 MG TABLET PO SCH (08:49)
[2020-07-18] MEDS: SERTRALINE 25 MG TABLET PO SCH (08:49)
[2020-07-18] MEDS: SODIUM CHLORIDE FLUSH 0.9% 10 ML SYRINGE IVP SCH ×3 (08:51→19:30)
[2020-07-18] MEDS: ENOXAPARIN 40 MG/0.4 ML SYRINGE SUBQ SCH (09:20)
[2020-07-18] MEDS: NYSTATIN POWDER 15 GM TOP SCH ×2 (09:23→20:03)
[2020-07-18] MEDS ORDERED: SODIUM CHLORIDE 0.9% 500 ML IV ONE (11:00)
[2020-07-18] MEDS: carvediloL 12.5 MG TABLET PO SCH (11:32)
[2020-07-18] MEDS: INSULIN ASPART 300 UNIT/3 ML PEN SUBQ SCH ×3 (12:09→20:12)
[2020-07-18 13:56] LABS: ESTIMATED AVERAGE GLUCOSE 252 mg/dL (70-100); HEMOGLOBIN A1c% 10.4 % (4.27-6.07)
--- NOTE | 2020-07-18 14:53 | PHARMACY PROGRESS NOTE ---
- Best Possible Medication History Admit Date and Time: 07/17/20 1633 Processed by: Pharmacy Medication History completed: In progress Patient Interview: Pt unable to participate Secondary Source(s): Prescription bottles, Insurance records Medication history currently incomplete. Patient and her are both unsure of what she takes at home. [facility] in [place] and insurance records show that patient has not filled most of her maintenance medications since summer. Patient's brought in some of the patient's prescription bottles from home and some of them are from 2018 and early 2019. The telmisartan bottle has a prescription label from March 2020 and was filled at the [facility]. Pharmacy will attempt to contact the clinic tomorrow when they are open. Patient's most recent office visit records suggest the patient is on Lantus 60 units daily and Novolog 35 units before meals. However, unclear if patient is truly taking that much at home. As the person ultimately responsible for medication therapy, providers are able to order a medication from an existing home medication list in [facility] via the "Reconcile Routine" prior to Confirmation of that medication by technology support analyst. Such practice is discouraged except when the physician, in their clinical judgment, deems that a medical need exists for a medication without regard to previous use.
[2020-07-18] MEDS: ONDANSETRON 4 MG/2 ML VIAL IVP PRN (19:29)
[2020-07-18] MEDS: SODIUM CHLORIDE FLUSH 0.9% 10 ML SYRINGE IVP PRN (19:30)
[2020-07-18] MEDS: HYDROcod/ACETAM 5/325 MG TABLET PO PRN (20:08)
[2020-07-18] MEDS: GABAPENTIN 300 MG CAPSULE PO SCH (20:09)
[2020-07-18] MEDS ORDERED: INSULIN GLARGINE 300 UNIT/3 ML PEN SUBQ SCH (21:00)
[2020-07-19] MEDS: SODIUM CHLORIDE 0.9% 1,000 ML IV SCH ×4 (01:19→22:31)
[2020-07-19] MEDS: SODIUM CHLORIDE FLUSH 0.9% 10 ML SYRINGE IVP PRN (04:48)
[2020-07-19 05:47] LABS: CALCIUM, IONIZED 1.12 mmol/L (1.15-1.33); VBG PH 7.306 (7.31-7.41)
[2020-07-19 05:50] LABS: BASOPHILS % (AUTO) 0.4 %; EOSINOPHILS # (AUTO) 0.3 10^3/uL (0.0-0.7); EOSINOPHILS % (AUTO) 3.6 %; HCT - HEMATOCRIT 29.4 % (37.0-47.0); HGB - HEMOGLOBIN 10.5 g/dL (12.0-16.0); LYMPHOCYTES # (AUTO) 2.2 10^3/uL (1.5-3.5); MEAN CORPUSCULAR HEMOGLOBIN 33.7 pg (27.0-31.0); MEAN CORPUSCULAR HGB CONC 35.7 g/dL (32.0-36.0); MEAN CORPUSCULAR VOLUME 94.2 fL (81.0-99.0); MEAN PLATELET VOLUME 10.2 fL (7.9-10.8); MONOCYTES # (AUTO) 0.7 10^3/uL (0.0-1.0); MONOCYTES % (AUTO) 8.4 %; NEUTROPHILS # (AUTO) 4.7 10^3/uL (1.5-6.6); NEUTROPHILS % (AUTO) 59.1 %; PLT - PLATELET COUNT 125 10^3/uL (130-450); RED BLOOD COUNT 3.12 10^6/uL (4.20-5.40); RED CELL DISTRIBUTION WIDTH 13.1 % (12.0-15.0)
[2020-07-19 05:59] LABS: CALCIUM 7.6 mg/dL (8.5-10.3); CREATININE 0.8 mg/dL (0.4-1.0); MAGNESIUM 1.5 mg/dL (1.7-2.8); PHOSPHORUS 2.3 mg/dL (2.5-4.6); POTASSIUM 3.5 mmol/L (3.5-5.0)
[2020-07-19] MEDS ORDERED: POTASSIUM CHLORIDE 20 MEQ TABLET PO ONE (06:13)
[2020-07-19] MEDS: PANTOPRAZOLE 40 MG TABLET PO SCH (06:44)
[2020-07-19] MEDS: NEUTRA-PHOS 250 MG TABLET PO SCH ×2 (06:44→08:14)
[2020-07-19] MEDS ORDERED: MAGNESIUM OXIDE 400 MG TABLET PO SCH (07:00)
[2020-07-19] MEDS: SODIUM CHLORIDE FLUSH 0.9% 10 ML SYRINGE IVP SCH ×2 (08:11→17:17)
[2020-07-19] MEDS: polyethylene glycoL 3350 17 GM PACKET PO SCH (08:12)
[2020-07-19] MEDS: SERTRALINE 25 MG TABLET PO SCH (08:14)
[2020-07-19] MEDS: ASPIRIN EC 81 MG TABLET PO SCH (08:14)
[2020-07-19] MEDS: INSULIN ASPART 300 UNIT/3 ML PEN SUBQ SCH ×4 (08:15→21:03)
[2020-07-19] MEDS: ENOXAPARIN 40 MG/0.4 ML SYRINGE SUBQ SCH (08:19)
--- NOTE | 2020-07-19 08:50 | PROVIDER PROGRESS NOTE ---
Assessment/Plan - Problem List (1) DKA (diabetic ketoacidoses) Qualifiers: Diabetes mellitus type: type 2 Assessment/Plan: Drip was discontinued yesterday 07/18/20 morning. Patient's blood glucose has been in the 180s to 200s. Hemoglobin A1c was 10.4. Lantus was changed to 15 units subcu twice daily. Sliding scale insulin. Accu-Cheks. If patient remains stable through the day [facility] to work with the patient today. (2) Leukocytosis Assessment/Plan: Resolved. Blood cell count today was 8.0. This is an improvement from yesterday when it was 14.5. (3) Dehydration Assessment/Plan: Patient is currently off pressors. Her systolic blood pressure is sustaining at 125. She is on IV fluids with normal saline at 150 mils per hour. Her urine output has significantly improved. This is reflected in her estimated GFR which is improved from 48 to70 and creatinine from 1.1 to 0.8 (4) Hyperlipidemia Assessment/Plan: On atorvastatin 80mg po daily (5) Depression with anxiety Assessment/Plan: On sertraline 25mg po daily (7) Peripheral neuropathy Assessment/Plan: On gabapentin 300mg po qhs (8) Hypertension Assessment/Plan: Currently normotensive. We will continue to hold off on antihypertensives for now. - Current Meds Current Meds: Current Medications Generic Name Dose Route Start Last Admin Trade Name Freq PRN Reason Stop Dose Admin Hydrocodone Bitart/Acetaminophen 1 tab 07/17/20 21:49 07/18/20 20:08 Hydrocod/Acetam 5/325 Mg Tablet PO 1 tab Q4HR PRN Administration PAIN Aspirin 81 mg 07/18/20 09:00 07/19/20 08:14 Aspirin Ec 81 Mg Tablet PO 81 mg DAILY RUBIN Administration Enoxaparin Sodium 40 mg 07/18/20 09:00 07/19/20 08:19 Enoxaparin 40 Mg/0.4 Ml Syringe SUBQ 40 mg DAILY RUBIN Administration Gabapentin 300 mg 07/17/20 21:00 07/18/20 20:09 Gabapentin 300 Mg Capsule PO 300 mg QPM RUBIN Administration Norepinephrine Bitartrate 8 mg 250 mls @ 15 mls/hr 07/18/20 03:00 07/19/20 01:19 / Dextrose IV 0 mcg/min .[id number] RUBIN 0 mls/hr Titration Protocol 8 MCG/MIN Sodium Chloride 1,000 mls @ 150 mls/hr 07/18/20 11:00 07/19/20 08:10 Normal Saline 0.9% IV 150 mls/hr .[id number] RUBIN Administration Insulin Aspart 3 - 11 unit 07/18/20 12:00 07/19/20 08:15 Insulin Aspart 300 Unit/3 Ml Pen SUBQ 5 unit 0800,1200,1700,2100 RUBIN Administration Protocol Insulin Glargine 10 unit 07/18/20 21:00 07/18/20 20:11 Insulin Glargine 300 Unit/3 Ml Pen SUBQ 10 unit QPM RUBIN Administration Nystatin 1 applic 07/17/20 21:00 07/18/20 20:03 Nystatin Powder 15 Gm TOP 1 applic BID RUBIN Administration Ondansetron HCl 4 mg 07/17/20 16:33 07/18/20 19:29 Ondansetron 4 Mg/2 Ml Vial IVP 4 mg Q6HR PRN Administration Nausea / Vomiting Pantoprazole Sodium 40 mg 07/18/20 07:00 07/19/20 06:44 Pantoprazole 40 Mg Tablet PO 40 mg QDAC RUBIN Administration Polyethylene Glycol 17 gm 07/19/20 09:00 07/19/20 08:12 Polyethylene Glycol 3350 17 Gm Packet PO 17 gm DAILY RUBIN Administration Sertraline HCl 25 mg 07/18/20 09:00 07/19/20 08:14 Sertraline 25 Mg Tablet PO 25 mg DAILY RUBIN Administration Sodium Chloride 10 ml 07/17/20 17:00 07/19/20 08:11 Sodium Chloride Flush 0.9% 10 Ml Syringe IVP 30 ml 0100,0900,1700 RUBIN Administration Sodium Chloride 10 ml 07/17/20 16:33 07/19/20 04:48 Sodium Chloride Flush 0.9% 10 Ml Syringe IVP 10 ml PRN PRN Administration NEEDED PER PROVIDER ORDERS Sodium Chloride 20 ml 07/18/20 02:53 07/19/20 04:48 Sodium Chloride Flush 0.9% 10 Ml Syringe IVP 20 ml PRN PRN Administration After Blood Draw Sodium Phosphate 250 mg 07/19/20 07:00 07/19/20 08:14 Neutra-Phos 250 Mg Tablet PO 07/19/20 09:01 250 mg Q2H RUBIN Administration Protocol - Lab Result Fish Bone Diagrams: 07/19/20 04:30 07/19/20 04:30 - Additional Planning My Orders: My Active Orders 07/18/20 08:26 Blood Culture [CULTURE, BLOOD #2] [RM] Stat 07/18/20 08:34 Blood Glucose Checks - Eating [RC] 0800,1200,1700,2100 Initiate Hypoglycemia Protocol [RC] .protocol 07/18/20 09:00 Aspirin EC [Ecotrin] 81 mg PO DAILY Enoxaparin [Lovenox] 40 mg SUBQ DAILY Sertraline [Zoloft] 25 mg PO DAILY 07/18/20 11:00 Sodium Chloride 0.9% [Normal Saline 0.9%] 1,000 ml IV 150 mls/hr 07/18/20 12:00 Insulin Aspart [NovoLOG] 3 - 11 unit SUBQ 0800,1200,1700,2100 07/18/20 21:00 Insulin Glargine [Lantus Solostar] 10 unit SUBQ QPM 07/19/20 04:30 HEMOGLOBIN A1c% [CHEM] DAILYLAB 07/19/20 07:00 Neutra-Phos [K-Phos Neutral] 250 mg PO Q2H 07/19/20 09:00 Magnesium Oxide [Mag Ox] 400 mg PO Q6H polyethylene glycoL 3350 [Miralax] 17 gm PO DAILY 07/20/20 05:00 BMP - BASIC METABOLIC PANEL [CHEM] DAILYLAB CALCIUM, IONIZED ([facility]) [BG] DAILYLAB CBC - COMP BLD CT W/AUTO DIFF [HEME] DAILYLAB MAGNESIUM [CHEM] DAILYLAB PHOSPHORUS [CHEM] DAILYLAB 07/21/20 05:00 BMP - BASIC METABOLIC PANEL [CHEM] DAILYLAB CBC - COMP BLD CT W/AUTO DIFF [HEME] DAILYLAB 07/22/20 05:00 BMP - BASIC METABOLIC PANEL [CHEM] DAILYLAB CBC - COMP BLD CT W/AUTO DIFF [HEME] DAILYLAB Subjective - Subjective Patient Reports: Other (Patient was resting comfortably in bed. She is more awake today and very communicative. She reports feeling constipated. Denies any other complain. Urine output is improved. Off levophed) Objective Vital Signs: Vital Signs - 24 hr 07/18/20 07/18/20 07/18/20 09:00 10:00 11:00 Temperature Heart Rate [ 76 74 73 Monitoring electrodes] Respiratory 18 17 15 Rate Blood Pressure 102/48 L 89/59 L 96/46 L [Right Brachial artery] O2 Saturation 96 97 97 07/18/20 07/18/20 07/18/20 12:00 13:00 14:00 Temperature 36.6 C Heart Rate [ 74 73 75 Monitoring electrodes] Respiratory 17 15 17 Rate Blood Pressure 111/46 L 114/52 L 122/59 L [Right Brachial artery] O2 Saturation 95 98 96 07/18/20 07/18/20 07/18/20 15:00 16:00 17:00 Temperature Heart Rate [ 76 76 80 Monitoring electrodes] Respiratory 18 19 18 Rate Blood Pressure 115/55 L 119/54 L 125/62 [Right Brachial artery] O2 Saturation 97 96 98 07/18/20 07/18/20 07/18/20 17:30 17:40 17:49 Temperature Heart Rate [ 79 Monitoring electrodes] Respiratory Rate Blood Pressure 123/53 L 125/63 106/54 L [Right Brachial artery] O2 Saturation 07/18/20 07/18/20 07/18/20 18:00 19:00 20:00 Temperature 37.2 C Heart Rate [ 78 80 76 Monitoring electrodes] Respiratory 16 20 25 H Rate Blood Pressure 112/57 L 113/54 L 137/68 H [Right Brachial artery] O2 Saturation 98 97 100 07/18/20 07/18/20 07/18/20 20:08 20:17 20:20 Temperature Heart Rate [ 74 78 74 Monitoring electrodes] Respiratory 17 18 19 Rate Blood Pressure 118/74 145/62 H 134/59 H [Right Brachial artery] O2 Saturation 97 97 97 07/18/20 07/18/20 07/18/20 20:25 20:30 20:35 Temperature Heart Rate [ 73 73 73 Monitoring electrodes] Respiratory 18 18 18 Rate Blood Pressure 132/59 H 128/59 L 117/63 [Right Brachial artery] O2 Saturation 96 96 96 07/18/20 07/18/20 07/18/20 20:40 20:45 20:55 Temperature Heart Rate [ 73 71 72 Monitoring electrodes] Respiratory 18 18 18 Rate Blood Pressure 86/76 L 120/59 L 114/60 [Right Brachial artery] O2 Saturation 97 95 96 07/18/20 07/18/20 07/18/20 21:00 21:05 21:10 Temperature Heart Rate [ 73 73 73 Monitoring electrodes] Respiratory 78 H 20 Rate Blood Pressure 112/51 L 110/55 L 102/55 L [Right Brachial artery] O2 Saturation 96 95 07/18/20 07/18/20 07/18/20 21:15 21:30 21:45 Temperature Heart Rate [ 72 73 74 Monitoring electrodes] Respiratory Rate Blood Pressure 106/53 L 110/52 L 101/51 L [Right Brachial artery] O2 Saturation 07/18/20 07/18/20 07/18/20 21:50 21:55 22:00 Temperature Heart Rate [ 73 73 73 Monitoring electrodes] Respiratory 16 Rate Blood Pressure 105/53 L 101/46 L 100/49 L [Right Brachial artery] O2 Saturation 96 07/18/20 07/18/20 07/18/20 22:15 22:25 22:30 Temperature Heart Rate [ 72 71 71 Monitoring electrodes] Respiratory Rate Blood Pressure 98/49 L 86/51 L 98/50 L [Right Brachial artery] O2 Saturation 07/18/20 07/18/20 07/18/20 22:35 22:40 22:45 Temperature Heart Rate [ 74 72 72 Monitoring electrodes] Respiratory Rate Blood Pressure 104/55 L 99/52 L 107/52 L [Right Brachial artery] O2 Saturation 07/18/20 07/19/20 07/19/20 23:00 00:00 00:30 Temperature 37.2 C Heart Rate [ 71 69 73 Monitoring electrodes] Respiratory 15 15 Rate Blood Pressure 103/48 L 95/54 L 99/48 L [Right Brachial artery] O2 Saturation 96 96 07/19/20 07/19/20 07/19/20 00:35 00:40 00:45 Temperature Heart Rate [ 74 73 72 Monitoring electrodes] Respiratory Rate Blood Pressure 107/45 L 96/62 93/46 L [Right Brachial artery] O2 Saturation 07/19/20 07/19/20 07/19/20 00:50 01:00 01:15 Temperature Heart Rate [ 72 73 72 Monitoring electrodes] Respiratory 15 14 Rate Blood Pressure 102/49 L 103/43 L 103/53 L [Right Brachial artery] O2 Saturation 97 95 07/19/20 07/19/20 07/19/20 01:22 01:25 01:30 Temperature Heart Rate [ 73 73 72 Monitoring electrodes] Respiratory 14 17 18 Rate Blood Pressure 92/49 L 90/46 L 90/45 L [Right Brachial artery] O2 Saturation 96 96 95 07/19/20 07/19/20 07/19/20 01:35 01:40 02:00 Temperature Heart Rate [ 73 73 72 Monitoring electrodes] Respiratory 15 Rate Blood Pressure 87/45 L 96/46 L 95/45 L [Right Brachial artery] O2 Saturation 07/19/20 07/19/20 07/19/20 02:30 03:00 04:00 Temperature 36.8 C Heart Rate [ 70 71 68 Monitoring electrodes] Respiratory 19 13 Rate Blood Pressure 86/47 L 105/49 L 88/49 L [Right Brachial artery] O2 Saturation 97 07/19/20 07/19/20 07/19/20 05:00 06:00 07:01 Temperature Heart Rate [ 70 68 72 Monitoring electrodes] Respiratory 14 12 16 Rate Blood Pressure 107/46 L 88/48 L 126/54 L [Right Brachial artery] O2 Saturation 96 95 97 07/19/20 08:00 Temperature 37.3 C Heart Rate [ 73 Monitoring electrodes] Respiratory 19 Rate Blood Pressure 105/52 L [Right Brachial artery] O2 Saturation 97 Oxygen O2 Source Room air I&O (Last 24 Hrs): Intake and Output Totals x24h 07/17/20 07/18/20 07/19/20 23:59 23:59 23:59 Intake Total 3048.239 6979.640 1566.500 Output Total 225 2390 340 Balance 2823.239 4589.640 1226.500 General: Alert, Oriented x3, No acute distress HEENT: PERRLA, EOMI Neck: Supple, No JVD Neuro: Alert, Non Focal, Oriented Times 3 Cardiovascular: Regular rate, Other (systolic murmur) Respiratory: Chest non-tender, No respiratory distress, Breath sounds nml Abdomen: Normal bowel sounds, Soft, No tenderness, No masses Extremities: No clubbing, No edema Skin: No rashes, No breakdown, No significant lesion - Results Results: Laboratory Results WBC 8.0 x10^3/uL (4.8-10.8) 07/19/20 04:30 RBC 3.12 10^6/uL (4.20-5.40) L 07/19/20 04:30 Hgb 10.5 g/dL (12.0-16.0) L 07/19/20 04:30 Hct 29.4 % (37.0-47.0) L 07/19/20 04:30 MCV 94.2 fL (81.0-99.0) 07/19/20 04:30 MCH 33.7 pg (27.0-31.0) H 07/19/20 04:30 MCHC 35.7 g/dL (32.0-36.0) 07/19/20 04:30 RDW 13.1 % (12.0-15.0) 07/19/20 04:30 Plt Count 125 10^3/uL (130-450) L 07/19/20 04:30 MPV 10.2 fL (7.9-10.8) 07/19/20 04:30 Neut # (Auto) 4.7 10^3/uL (1.5-6.6) 07/19/20 04:30 Lymph # (Auto) 2.2 10^3/uL (1.5-3.5) 07/19/20 04:30 [place] # (Auto) 0.7 10^3/uL (0.0-1.0) 07/19/20 04:30 Eos # (Auto) 0.3 10^3/uL (0.0-0.7) 07/19/20 04:30 Baso # (Auto) 0.0 10^3/uL (0.0-0.1) 07/19/20 04:30 Absolute Nucleated RBC 0.00 x10^3/uL 07/19/20 04:30 Nucleated RBC % 0.0 /100WBC 07/19/20 04:30 VBG pH 7.306 (7.31-7.41) L 07/19/20 04:30 VBG pCO2 29.1 mmHg (41-51) L 07/17/20 18:05 VBG pO2 55.5 mmHg (25-47) H 07/17/20 18:05 VBG HCO3 11.1 mmol/L (23-28) L 07/17/20 18:05 VBG Total CO2 12.0 mmol/L (24-29) L 07/17/20 18:05 VBG O2 Saturation 85.5 % (60-80) H 07/17/20 18:05 VBG Base Excess -15.4 mmol/L (-2 - +2) L 07/17/20 18:05 Ionized Calcium 1.12 mmol/L (1.15-1.33) L 07/19/20 04:30 Sodium 139 mmol/L (135-145) 07/19/20 04:30 Potassium 3.5 mmol/L (3.5-5.0) 07/19/20 04:30 Chloride 113 mmol/L (101-111) H 07/19/20 04:30 Carbon Dioxide 20 mmol/L (21-32) L 07/19/20 04:30 Anion Gap 6.0 (6-13) 07/19/20 04:30 BUN 20 mg/dL (6-20) 07/19/20 04:30 Creatinine 0.8 mg/dL (0.4-1.0) 07/19/20 04:30 Estimated GFR (MDRD) 70 (>89) L 07/19/20 04:30 Glucose 180 mg/dL (70-100) H 07/19/20 04:30 Estimat Average Glucose 252 mg/dL (70-100) H 07/18/20 03:15 Hemoglobin A1c % 10.4 % (4.27-6.07) H 07/18/20 03:15 Lactic Acid 1.2 mmol/L (0.5-2.2) 07/18/20 08:26 Calcium 7.6 mg/dL (8.5-10.3) L 07/19/20 04:30 Phosphorus 2.3 mg/dL (2.5-4.6) L 07/19/20 04:30 Magnesium 1.5 mg/dL (1.7-2.8) L 07/19/20 04:30 Total Bilirubin 2.6 mg/dL (0.2-1.0) H 07/17/20 14:45 AST 15 IU/L (10-42) 07/17/20 14:45 ALT 16 IU/L (10-60) 07/17/20 14:45 Alkaline Phosphatase 81 IU/L (42-121) 07/17/20 14:45 Total Creatine Kinase 123 IU/L (22-269) 07/17/20 14:45 Total Protein 6.6 g/dL (6.7-8.2) L 07/17/20 14:45 Albumin 2.4 g/dL (3.2-5.5) L 07/19/20 04:30 Globulin 2.8 g/dL (2.1-4.2) 07/17/20 14:45 Albumin/Globulin Ratio 1.4 (1.0-2.2) 07/17/20 14:45 Lipase 21 U/L (22-51) L 07/17/20 14:45 Urine Color YELLOW 07/18/20 07:43 Urine Clarity CLEAR (CLEAR) 07/18/20 07:43 Urine pH 5.0 PH (5.0-7.5) 07/18/20 07:43 Ur Specific [place] 1.025 (1.002-1.030) 07/18/20 07:43 Urine Protein TRACE mg/dL (NEGATIVE) 07/18/20 07:43 Urine Glucose (UA) >=1000 mg/dL (NEGATIVE) H 07/18/20 07:43 Urine Ketones >=80 mg/dL (NEGATIVE) H 07/18/20 07:43 Urine Occult Blood NEGATIVE (NEGATIVE) 07/18/20 07:43 Urine Nitrite NEGATIVE (NEGATIVE) 07/18/20 07:43 Urine Bilirubin MODERATE (NEGATIVE) H 07/18/20 07:43 Urine Urobilinogen 0.2 (NORMAL) E.U./dL (NORMAL) 07/18/20 07:43 Ur Leukocyte Esterase NEGATIVE (NEGATIVE) 07/18/20 07:43 Urine RBC 0-5 /HPF (0-5) 07/17/20 14:40 Urine WBC 0-3 /HPF (0-5) 07/17/20 14:40 Ur Squamous Epith Cells FEW Squamous (<= Few) 07/17/20 14:40 Urine Bacteria None Seen /HPF (None Seen) 07/17/20 14:40 Urine Yeast PRESENT 07/17/20 14:40 Ur Microscopic Review NOT INDICATED 07/18/20 07:43 Urine Culture Comments NOT INDICATED 07/18/20 07:43 Nasal Adenovirus (PCR) NOT DETECTED 07/17/20 16:45 Nasal B. parapertussis DNA (PCR) NOT DETECTED 07/17/20 16:45 Nasal Coronavir 229E PCR NOT DETECTED 07/17/20 16:45 Nasal Coronavir HKU1 PCR NOT DETECTED 07/17/20 16:45 Nasal Coronavir NL63 PCR NOT DETECTED 07/17/20 16:45 Nasal Coronavir OC43 PCR NOT DETECTED 07/17/20 16:45 Nasal Enterovir/Rhinovir PCR NOT DETECTED 07/17/20 16:45 Nasal Influenza B PCR NOT DETECTED 07/17/20 16:45 Nasal Influenza A PCR NOT DETECTED 07/17/20 16:45 Nasal Parainfluen 1 PCR NOT DETECTED 07/17/20 16:45 Nasal Parainfluen 2 PCR NOT DETECTED 07/17/20 16:45 Nasal Parainfluen 3 PCR NOT DETECTED 07/17/20 16:45 Nasal Parainfluen 4 PCR NOT DETECTED 07/17/20 16:45 Nasal RSV (PCR) NOT DETECTED 07/17/20 16:45 Nasal Screen MRSA (PCR) NEGATIVE (NEGATIVE) 07/17/20 17:32 Nasal B.pertussis DNA PCR NOT DETECTED 07/17/20 16:45 Nasal C.pneumoniae (PCR) NOT DETECTED 07/17/20 16:45 Esvin Human Metapneumo PCR NOT DETECTED 07/17/20 16:45 Nasal M.pneumoniae (PCR) NOT DETECTED 07/17/20 16:45 Nasal SARS-CoV-2 (PCR) NOT DETECTED 07/17/20 16:45 Serum Ketones SMALL (NEGATIVE) H 07/17/20 14:45 ABX Reporting Has patient been on IV antibiotics over the past 48 hours?: No
[2020-07-19] MEDS: INSULIN GLARGINE 300 UNIT/3 ML PEN SUBQ SCH ×2 (09:26→21:02)
[2020-07-19] MEDS: MAGNESIUM OXIDE 400 MG TABLET PO SCH ×2 (10:46→15:22)
[2020-07-19] MEDS: NYSTATIN POWDER 15 GM TOP SCH ×2 (12:14→21:03)
[2020-07-19 13:58] LABS: ESTIMATED AVERAGE GLUCOSE 246 mg/dL (70-100); HEMOGLOBIN A1c% 10.2 % (4.27-6.07)
[2020-07-19] MEDS: GABAPENTIN 300 MG CAPSULE PO SCH (21:04)
[2020-07-20] MEDS: SODIUM CHLORIDE FLUSH 0.9% 10 ML SYRINGE IVP SCH ×3 (00:52→16:50)
[2020-07-20] MEDS: HYDROcod/ACETAM 5/325 MG TABLET PO PRN (00:55)
[2020-07-20] MEDS: SODIUM CHLORIDE 0.9% 1,000 ML IV SCH ×2 (03:08→06:02)
[2020-07-20 05:24] LABS: BASOPHILS % (AUTO) 0.5 %; EOSINOPHILS # (AUTO) 0.4 10^3/uL (0.0-0.7); HCT - HEMATOCRIT 28.5 % (37.0-47.0); HGB - HEMOGLOBIN 10.7 g/dL (12.0-16.0); LYMPHOCYTES # (AUTO) 1.6 10^3/uL (1.5-3.5); LYMPHOCYTES % (AUTO) 27.4 %; MEAN CORPUSCULAR HEMOGLOBIN 34.7 pg (27.0-31.0); MEAN CORPUSCULAR HGB CONC 37.5 g/dL (32.0-36.0); MEAN CORPUSCULAR VOLUME 92.5 fL (81.0-99.0); MEAN PLATELET VOLUME 9.9 fL (7.9-10.8); MONOCYTES # (AUTO) 0.6 10^3/uL (0.0-1.0); MONOCYTES % (AUTO) 9.5 %; NEUTROPHILS # (AUTO) 3.3 10^3/uL (1.5-6.6); NEUTROPHILS % (AUTO) 56.4 %; PLT - PLATELET COUNT 117 10^3/uL (130-450); RED BLOOD COUNT 3.08 10^6/uL (4.20-5.40); WHITE BLOOD COUNT 5.9 x10^3/uL (4.8-10.8)
[2020-07-20 05:27] LABS: CALCIUM, IONIZED 1.13 mmol/L (1.15-1.33); VBG PH 7.324 (7.31-7.41)
[2020-07-20 05:34] LABS: CALCIUM 7.7 mg/dL (8.5-10.3); CREATININE 0.6 mg/dL (0.4-1.0); MAGNESIUM 1.5 mg/dL (1.7-2.8); PHOSPHORUS 2.4 mg/dL (2.5-4.6); POTASSIUM 3.5 mmol/L (3.5-5.0)
[2020-07-20] MEDS ORDERED: MAGNESIUM SULFATE 2 GRAM 2 GM/50 ML BAG IV ONE (06:00)
[2020-07-20] MEDS: NEUTRA-PHOS 250 MG TABLET PO SCH ×2 (06:48→08:30)
[2020-07-20] MEDS: PANTOPRAZOLE 40 MG TABLET PO SCH (06:48)
[2020-07-20] MEDS: INSULIN ASPART 300 UNIT/3 ML PEN SUBQ SCH ×6 (07:39→20:55)
[2020-07-20] MEDS: polyethylene glycoL 3350 17 GM PACKET PO SCH (08:29)
[2020-07-20] MEDS: SERTRALINE 25 MG TABLET PO SCH (08:29)
[2020-07-20] MEDS: ENOXAPARIN 40 MG/0.4 ML SYRINGE SUBQ SCH (08:29)
[2020-07-20] MEDS: ASPIRIN EC 81 MG TABLET PO SCH (08:30)
[2020-07-20] MEDS: INSULIN GLARGINE 300 UNIT/3 ML PEN SUBQ SCH (08:38)
[2020-07-20] MEDS ORDERED: POTASSIUM CHLORIDE 20 MEQ TABLET PO ONE (09:00)
--- NOTE | 2020-07-20 12:12 | PROVIDER PROGRESS NOTE ---
Subjective - Prog Note Date Prog Note Date: 07/20/20 - Subjective Subjective: She reports feeling better. She able to get out of bed a little bit today but became fatigued quite quickly. Denies any abdominal pain. She has been eating well. Current Medications - Current Medications Current Medications: Active Medications Hydrocodone Bitart/Acetaminophen (Hydrocod/Acetam 5/325 Mg Tablet) 1 tab PO Q4HR PRN PRN Reason: PAIN Last Admin: 07/20/20 00:55 Dose: 1 tab Documented by: Aspirin (Aspirin Ec 81 Mg Tablet) 81 mg PO DAILY [facility] Last Admin: 07/20/20 08:30 Dose: 81 mg Documented by: Enoxaparin Sodium (Enoxaparin 40 Mg/0.4 Ml Syringe) 40 mg SUBQ DAILY [facility] Last Admin: 07/20/20 08:29 Dose: 40 mg Documented by: Gabapentin (Gabapentin 300 Mg Capsule) 300 mg PO QPM [facility] Last Admin: 07/19/20 21:04 Dose: 300 mg Documented by: Hydralazine HCl (Hydralazine Inj 20 Mg/Ml Vial) 10 mg IVP Q4H PRN PRN Reason: PER PHYSICIAN ORDER Sodium Chloride (Normal Saline 0.9%) 500 mls @ 20 mls/hr IV Q24H PRN PRN Reason: TKO RATE Sodium Chloride (Normal Saline 0.9%) 1,000 mls @ 150 mls/hr IV .Q6H40M [facility] Last Admin: 07/20/20 06:02 Dose: 150 mls/hr Documented by: Insulin Aspart (Insulin Aspart 300 Unit/3 Ml Pen) 3 - 11 unit SUBQ 0800,1200,1700,2100 [facility]; Protocol Last Admin: 07/20/20 07:39 Dose: Not Given Documented by: Insulin Aspart (Insulin Aspart 300 Unit/3 Ml Pen) 3 unit SUBQ TIDWM [facility] Insulin Glargine (Insulin Glargine 300 Unit/3 Ml Pen) 25 unit SUBQ [facility] Nystatin (Nystatin Powder 15 Gm) 1 applic TOP BID [facility] Last Admin: 07/19/20 21:03 Dose: 1 applic Documented by: Ondansetron HCl (Ondansetron 4 Mg/2 Ml Vial) 4 mg IVP Q6HR PRN PRN Reason: Nausea / Vomiting Last Admin: 07/18/20 19:29 Dose: 4 mg Documented by: Pantoprazole Sodium (Pantoprazole 40 Mg Tablet) 40 mg PO QDAC [facility] Last Admin: 07/20/20 06:48 Dose: 40 mg Documented by: Polyethylene Glycol (Polyethylene Glycol 3350 17 Gm Packet) 17 gm PO DAILY [facility] Last Admin: 07/20/20 08:29 Dose: 17 gm Documented by: Sertraline HCl (Sertraline 25 Mg Tablet) 25 mg PO DAILY [facility] Last Admin: 07/20/20 08:29 Dose: 25 mg Documented by: Sodium Chloride (Sodium Chloride Flush 0.9% 10 Ml Syringe) 10 ml IVP 0100,0900,1700 [facility] Last Admin: 07/20/20 08:30 Dose: 10 ml Documented by: Sodium Chloride (Sodium Chloride Flush 0.9% 10 Ml Syringe) 10 ml IVP PRN PRN PRN Reason: NEEDED PER PROVIDER ORDERS Last Admin: 07/19/20 04:48 Dose: 10 ml Documented by: Sodium Chloride (Sodium Chloride Flush 0.9% 10 Ml Syringe) 20 ml IVP PRN PRN PRN Reason: After Blood Draw Last Admin: 07/19/20 04:48 Dose: 20 ml Documented by: Aspirin 81 mg ORAL DAILY 07/09/17 Insulin Aspart [Novolog Flexpen] 35 units SQ AC 07/09/17 Insulin Glargine [Lantus Solostar] 60 units SQ DAILY 07/09/17 carvediloL [Carvedilol] 25 mg ORAL BID 07/09/17 Promethazine [Phenergan] 25 mg PO Q6H PRN 07/18/20 Telmisartan [Micardis] 80 mg PO BID 07/18/20 Triamcinolone 0.1% Oint 1 applic TOP BID 07/18/20 Objective - Vital Signs/Intake & Output Reviewed Vital Signs: Yes Vital Signs: Vital Signs x48h Temp Pulse Resp BP BP Pulse Ox 07/20/20 09:00 71 18 153/81 H 100 07/20/20 08:00 37.1 C 74 18 128/77 99 07/20/20 07:00 72 17 144/62 H 97 07/20/20 06:00 71 14 94/46 L 97 07/20/20 05:00 36.8 C 68 13 96/45 L 98 Intake & Output: Intake & Output 07/17/20 07/18/20 07/19/20 07/20/20 23:59 23:59 23:59 23:59 Intake Total 3048.239 6979.640 4061.500 1765 Output Total 225 2390 1705 974 Balance 2823.239 4589.640 2356.500 791 - Objective General Appearance: positive: No acute distress, Alert Eyes Bilateral: positive: Normal inspection, Conjunctivae nml ENT: positive: ENT inspection nml Neck: positive: Nml inspection Respiratory: positive: No respiratory distress. negative: Wheezes, Rales Cardiovascular: positive: Systolic murmur. negative: No murmur, Irregularly irregular, Tachycardia Abdomen: positive: Non-tender, No distention. negative: Tenderness Skin: positive: Warm, Dry Extremities: positive: Pedal edema (Trace to +1 pitting edema in the bilateral lower extremities) Neurologic/Psychiatric: negative: Disoriented to person, Disoriented to place - Lab Results Fish Bones: 07/20/20 05:05 07/20/20 05:05 Other Labs: Lab Results x24hrs 07/20/20 07/20/20 07/20/20 Range/Units 12:02 07:37 05:05 WBC (4.8-10.8) x10^3/uL RBC (4.20-5.40) 10^6/uL Hgb (12.0-16.0) g/dL Hct (37.0-47.0) % MCV (81.0-99.0) fL MCH (27.0-31.0) pg MCHC (32.0-36.0) g/dL RDW (12.0-15.0) % Plt Count (130-450) 10^3/uL MPV (7.9-10.8) fL Neut # (Auto) (1.5-6.6) 10^3/uL Lymph # (Auto) (1.5-3.5) 10^3/uL Kinney # (Auto) (0.0-1.0) 10^3/uL Eos # (Auto) (0.0-0.7) 10^3/uL Baso # (Auto) (0.0-0.1) 10^3/uL Absolute Nucleated RBC x10^3/uL Nucleated RBC % /100WBC VBG pH 7.324 (7.31-7.41) Ionized Calcium 1.13 L (1.15-1.33) mmol/L Sodium (135-145) mmol/L Potassium (3.5-5.0) mmol/L Chloride (101-111) mmol/L Carbon Dioxide (21-32) mmol/L Anion Gap (6-13) BUN (6-20) mg/dL Creatinine (0.4-1.0) mg/dL Estimated GFR (MDRD) (>89) Glucose (70-100) mg/dL POC Whole Bld Glucose 281 H 139 H (70 - 100) mg/dL Estimat Average Glucose (70-100) mg/dL Hemoglobin A1c % (4.27-6.07) % Calcium (8.5-10.3) mg/dL Phosphorus (2.5-4.6) mg/dL Magnesium (1.7-2.8) mg/dL 07/20/20 07/20/20 07/19/20 Range/Units 05:05 05:05 20:56 WBC 5.9 (4.8-10.8) x10^3/uL RBC 3.08 L (4.20-5.40) 10^6/uL Hgb 10.7 L (12.0-16.0) g/dL Hct 28.5 L (37.0-47.0) % MCV 92.5 (81.0-99.0) fL MCH 34.7 H (27.0-31.0) pg MCHC 37.5 H (32.0-36.0) g/dL RDW 13.0 (12.0-15.0) % Plt Count 117 L (130-450) 10^3/uL MPV 9.9 (7.9-10.8) fL Neut # (Auto) 3.3 (1.5-6.6) 10^3/uL Lymph # (Auto) 1.6 (1.5-3.5) 10^3/uL Kinney # (Auto) 0.6 (0.0-1.0) 10^3/uL Eos # (Auto) 0.4 (0.0-0.7) 10^3/uL Baso # (Auto) 0.0 (0.0-0.1) 10^3/uL Absolute Nucleated RBC 0.00 x10^3/uL Nucleated RBC % 0.0 /100WBC VBG pH (7.31-7.41) Ionized Calcium (1.15-1.33) mmol/L Sodium 139 (135-145) mmol/L Potassium 3.5 (3.5-5.0) mmol/L Chloride 113 H (101-111) mmol/L Carbon Dioxide 21 (21-32) mmol/L Anion Gap 5.0 L (6-13) BUN 13 (6-20) mg/dL Creatinine 0.6 (0.4-1.0) mg/dL Estimated GFR (MDRD) 97 (>89) Glucose 139 H (70-100) mg/dL POC Whole Bld Glucose 229 H (70 - 100) mg/dL Estimat Average Glucose (70-100) mg/dL Hemoglobin A1c % (4.27-6.07) % Calcium 7.7 L (8.5-10.3) mg/dL Phosphorus 2.4 L (2.5-4.6) mg/dL Magnesium 1.5 L (1.7-2.8) mg/dL 07/19/20 07/19/20 07/19/20 Range/Units 16:49 11:58 08:03 WBC (4.8-10.8) x10^3/uL RBC (4.20-5.40) 10^6/uL Hgb (12.0-16.0) g/dL Hct (37.0-47.0) % MCV (81.0-99.0) fL MCH (27.0-31.0) pg MCHC (32.0-36.0) g/dL RDW (12.0-15.0) % Plt Count (130-450) 10^3/uL MPV (7.9-10.8) fL Neut # (Auto) (1.5-6.6) 10^3/uL Lymph # (Auto) (1.5-3.5) 10^3/uL Kinney # (Auto) (0.0-1.0) 10^3/uL Eos # (Auto) (0.0-0.7) 10^3/uL Baso # (Auto) (0.0-0.1) 10^3/uL Absolute Nucleated RBC x10^3/uL Nucleated RBC % /100WBC VBG pH (7.31-7.41) Ionized Calcium (1.15-1.33) mmol/L Sodium (135-145) mmol/L Potassium (3.5-5.0) mmol/L Chloride (101-111) mmol/L Carbon Dioxide (21-32) mmol/L Anion Gap (6-13) BUN (6-20) mg/dL Creatinine (0.4-1.0) mg/dL Estimated GFR (MDRD) (>89) Glucose (70-100) mg/dL POC Whole Bld Glucose 264 H 196 H 210 H (70 - 100) mg/dL Estimat Average Glucose (70-100) mg/dL Hemoglobin A1c % (4.27-6.07) % Calcium (8.5-10.3) mg/dL Phosphorus (2.5-4.6) mg/dL Magnesium (1.7-2.8) mg/dL 07/19/20 07/18/20 07/18/20 Range/Units 04:30 20:08 16:41 WBC (4.8-10.8) x10^3/uL RBC (4.20-5.40) 10^6/uL Hgb (12.0-16.0) g/dL Hct (37.0-47.0) % MCV (81.0-99.0) fL MCH (27.0-31.0) pg MCHC (32.0-36.0) g/dL RDW (12.0-15.0) % Plt Count (130-450) 10^3/uL MPV (7.9-10.8) fL Neut # (Auto) (1.5-6.6) 10^3/uL Lymph # (Auto) (1.5-3.5) 10^3/uL Kinney # (Auto) (0.0-1.0) 10^3/uL Eos # (Auto) (0.0-0.7) 10^3/uL Baso # (Auto) (0.0-0.1) 10^3/uL Absolute Nucleated RBC x10^3/uL Nucleated RBC % /100WBC VBG pH (7.31-7.41) Ionized Calcium (1.15-1.33) mmol/L Sodium (135-145) mmol/L Potassium (3.5-5.0) mmol/L Chloride (101-111) mmol/L Carbon Dioxide (21-32) mmol/L Anion Gap (6-13) BUN (6-20) mg/dL Creatinine (0.4-1.0) mg/dL Estimated GFR (MDRD) (>89) Glucose (70-100) mg/dL POC Whole Bld Glucose 296 H 291 H (70 - 100) mg/dL Estimat Average Glucose 246 H (70-100) mg/dL Hemoglobin A1c % 10.2 H (4.27-6.07) % Calcium (8.5-10.3) mg/dL Phosphorus (2.5-4.6) mg/dL Magnesium (1.7-2.8) mg/dL 07/18/20 07/18/20 07/18/20 Range/Units 11:35 08:08 07:07 WBC (4.8-10.8) x10^3/uL RBC (4.20-5.40) 10^6/uL Hgb (12.0-16.0) g/dL Hct (37.0-47.0) % MCV (81.0-99.0) fL MCH (27.0-31.0) pg MCHC (32.0-36.0) g/dL RDW (12.0-15.0) % Plt Count (130-450) 10^3/uL MPV (7.9-10.8) fL Neut # (Auto) (1.5-6.6) 10^3/uL Lymph # (Auto) (1.5-3.5) 10^3/uL Kinney # (Auto) (0.0-1.0) 10^3/uL Eos # (Auto) (0.0-0.7) 10^3/uL Baso # (Auto) (0.0-0.1) 10^3/uL Absolute Nucleated RBC x10^3/uL Nucleated RBC % /100WBC VBG pH (7.31-7.41) Ionized Calcium (1.15-1.33) mmol/L Sodium (135-145) mmol/L Potassium (3.5-5.0) mmol/L Chloride (101-111) mmol/L Carbon Dioxide (21-32) mmol/L Anion Gap (6-13) BUN (6-20) mg/dL Creatinine (0.4-1.0) mg/dL Estimated GFR (MDRD) (>89) Glucose (70-100) mg/dL POC Whole Bld Glucose 345 H 97 114 H (70 - 100) mg/dL Estimat Average Glucose (70-100) mg/dL Hemoglobin A1c % (4.27-6.07) % Calcium (8.5-10.3) mg/dL Phosphorus (2.5-4.6) mg/dL Magnesium (1.7-2.8) mg/dL 07/18/20 07/18/20 07/18/20 Range/Units 06:11 04:53 03:50 WBC (4.8-10.8) x10^3/uL RBC (4.20-5.40) 10^6/uL Hgb (12.0-16.0) g/dL Hct (37.0-47.0) % MCV (81.0-99.0) fL MCH (27.0-31.0) pg MCHC (32.0-36.0) g/dL RDW (12.0-15.0) % Plt Count (130-450) 10^3/uL MPV (7.9-10.8) fL Neut # (Auto) (1.5-6.6) 10^3/uL Lymph # (Auto) (1.5-3.5) 10^3/uL Kinney # (Auto) (0.0-1.0) 10^3/uL Eos # (Auto) (0.0-0.7) 10^3/uL Baso # (Auto) (0.0-0.1) 10^3/uL Absolute Nucleated RBC x10^3/uL Nucleated RBC % /100WBC VBG pH (7.31-7.41) Ionized Calcium (1.15-1.33) mmol/L Sodium (135-145) mmol/L Potassium (3.5-5.0) mmol/L Chloride (101-111) mmol/L Carbon Dioxide (21-32) mmol/L Anion Gap (6-13) BUN (6-20) mg/dL Creatinine (0.4-1.0) mg/dL Estimated GFR (MDRD) (>89) Glucose (70-100) mg/dL POC Whole Bld Glucose 128 H 152 H 149 H (70 - 100) mg/dL Estimat Average Glucose (70-100) mg/dL Hemoglobin A1c % (4.27-6.07) % Calcium (8.5-10.3) mg/dL Phosphorus (2.5-4.6) mg/dL Magnesium (1.7-2.8) mg/dL 07/18/20 07/18/20 07/18/20 Range/Units 03:12 01:57 00:56 WBC (4.8-10.8) x10^3/uL RBC (4.20-5.40) 10^6/uL Hgb (12.0-16.0) g/dL Hct (37.0-47.0) % MCV (81.0-99.0) fL MCH (27.0-31.0) pg MCHC (32.0-36.0) g/dL RDW (12.0-15.0) % Plt Count (130-450) 10^3/uL MPV (7.9-10.8) fL Neut # (Auto) (1.5-6.6) 10^3/uL Lymph # (Auto) (1.5-3.5) 10^3/uL Kinney # (Auto) (0.0-1.0) 10^3/uL Eos # (Auto) (0.0-0.7) 10^3/uL Baso # (Auto) (0.0-0.1) 10^3/uL Absolute Nucleated RBC x10^3/uL Nucleated RBC % /100WBC VBG pH (7.31-7.41) Ionized Calcium (1.15-1.33) mmol/L Sodium (135-145) mmol/L Potassium (3.5-5.0) mmol/L Chloride (101-111) mmol/L Carbon Dioxide (21-32) mmol/L Anion Gap (6-13) BUN (6-20) mg/dL Creatinine (0.4-1.0) mg/dL Estimated GFR (MDRD) (>89) Glucose (70-100) mg/dL POC Whole Bld Glucose 150 H 202 H 234 H (70 - 100) mg/dL Estimat Average Glucose (70-100) mg/dL Hemoglobin A1c % (4.27-6.07) % Calcium (8.5-10.3) mg/dL Phosphorus (2.5-4.6) mg/dL Magnesium (1.7-2.8) mg/dL 07/17/20 07/17/20 07/17/20 Range/Units 23:45 22:55 21:57 WBC (4.8-10.8) x10^3/uL RBC (4.20-5.40) 10^6/uL Hgb (12.0-16.0) g/dL Hct (37.0-47.0) % MCV (81.0-99.0) fL MCH (27.0-31.0) pg MCHC (32.0-36.0) g/dL RDW (12.0-15.0) % Plt Count (130-450) 10^3/uL MPV (7.9-10.8) fL Neut # (Auto) (1.5-6.6) 10^3/uL Lymph # (Auto) (1.5-3.5) 10^3/uL Kinney # (Auto) (0.0-1.0) 10^3/uL Eos # (Auto) (0.0-0.7) 10^3/uL Baso # (Auto) (0.0-0.1) 10^3/uL Absolute Nucleated RBC x10^3/uL Nucleated RBC % /100WBC VBG pH (7.31-7.41) Ionized Calcium (1.15-1.33) mmol/L Sodium (135-145) mmol/L Potassium (3.5-5.0) mmol/L Chloride (101-111) mmol/L Carbon Dioxide (21-32) mmol/L Anion Gap (6-13) BUN (6-20) mg/dL Creatinine (0.4-1.0) mg/dL Estimated GFR (MDRD) (>89) Glucose (70-100) mg/dL POC Whole Bld Glucose 236 H 265 H 260 H (70 - 100) mg/dL Estimat Average Glucose (70-100) mg/dL Hemoglobin A1c % (4.27-6.07) % Calcium (8.5-10.3) mg/dL Phosphorus (2.5-4.6) mg/dL Magnesium (1.7-2.8) mg/dL 07/17/20 07/17/20 07/17/20 Range/Units 20:51 19:57 19:18 WBC (4.8-10.8) x10^3/uL RBC (4.20-5.40) 10^6/uL Hgb (12.0-16.0) g/dL Hct (37.0-47.0) % MCV (81.0-99.0) fL MCH (27.0-31.0) pg MCHC (32.0-36.0) g/dL RDW (12.0-15.0) % Plt Count (130-450) 10^3/uL MPV (7.9-10.8) fL Neut # (Auto) (1.5-6.6) 10^3/uL Lymph # (Auto) (1.5-3.5) 10^3/uL Kinney # (Auto) (0.0-1.0) 10^3/uL Eos # (Auto) (0.0-0.7) 10^3/uL Baso # (Auto) (0.0-0.1) 10^3/uL Absolute Nucleated RBC x10^3/uL Nucleated RBC % /100WBC VBG pH (7.31-7.41) Ionized Calcium (1.15-1.33) mmol/L Sodium (135-145) mmol/L Potassium (3.5-5.0) mmol/L Chloride (101-111) mmol/L Carbon Dioxide (21-32) mmol/L Anion Gap (6-13) BUN (6-20) mg/dL Creatinine (0.4-1.0) mg/dL Estimated GFR (MDRD) (>89) Glucose (70-100) mg/dL POC Whole Bld Glucose 199 H 345 H 342 H (70 - 100) mg/dL Estimat Average Glucose (70-100) mg/dL Hemoglobin A1c % (4.27-6.07) % Calcium (8.5-10.3) mg/dL Phosphorus (2.5-4.6) mg/dL Magnesium (1.7-2.8) mg/dL ABX Reporting Has patient been on IV antibiotics over the past 48 hours?: No Assessment/Plan - Problem List (1) Hypotension Impression: She has a history of hypertension for she is on carvedilol telmisartan. She was hypotensive during his hospitalization which was felt to be due to hypovolemia and not sepsis. She responded well to IV fluids and her blood pressure is improved this morning. She did have a reading this morning in the 90s systolic but since then the lowest has been in the 120s. At this time, we will continue to hold off on her antihypertensives. We will discontinue IV fluids. We will transfer out of the ICU and continue to monitor her blood pressure. (2) Type 2 diabetes mellitus Impression: Her A1c is greater than 10% is likely due to noncompliance with her prior insulin regimen as she had not refilled insulin since October of last year. Her blood glucose is now better controlled and she is no longer in diabetic ketoacidosis. She was started on Lantus 15 units twice daily with improvement in her blood glucose. We will change this to 25 units in the evening to assist with compliance. We will place her on 3 units of NovoLog with meals plus sliding scale. If her blood glucose is stable overnight 24 hours and her blood pressure then she can likely be discharged tomorrow. Nutrition has been consulted. She will need diabetic education. (3) Depression with anxiety Impression: Stable. Continue sertraline. (4) Hyperlipidemia Impression: Stable. Continue her statin. (5) Peripheral neuropathy Impression: Continue gabapentin. (6) DKA (diabetic ketoacidoses) Impression: This is now resolved. She has been transitioned to subcutaneous insulin as mentioned above. Qualifiers: Diabetes mellitus type: type 2 (7) Acute kidney injury Impression: This has resolved. This is likely prerenal injury due to dehydration. Her creatinine is back to 0.6 which is her baseline. We have discontinued IV fluids.
[2020-07-20] MEDS: NYSTATIN POWDER 15 GM TOP SCH ×2 (13:42→20:27)
[2020-07-20] MEDS: GABAPENTIN 300 MG CAPSULE PO SCH (20:26)
[2020-07-20] MEDS ORDERED: INSULIN GLARGINE 300 UNIT/3 ML PEN SUBQ SCH (21:00)
[2020-07-21] MEDS: HYDROcod/ACETAM 5/325 MG TABLET PO PRN ×2 (00:40→09:32)
[2020-07-21] MEDS: SODIUM CHLORIDE FLUSH 0.9% 10 ML SYRINGE IVP PRN ×2 (00:42→08:57)
[2020-07-21] MEDS: SODIUM CHLORIDE FLUSH 0.9% 10 ML SYRINGE IVP SCH ×2 (00:42→08:47)
[2020-07-21 05:21] LABS: BASOPHILS % (AUTO) 0.5 %; EOSINOPHILS # (AUTO) 0.3 10^3/uL (0.0-0.7); EOSINOPHILS % (AUTO) 4.9 %; HCT - HEMATOCRIT 30.1 % (37.0-47.0); HGB - HEMOGLOBIN 10.9 g/dL (12.0-16.0); LYMPHOCYTES # (AUTO) 1.7 10^3/uL (1.5-3.5); LYMPHOCYTES % (AUTO) 28.1 %; MEAN CORPUSCULAR HEMOGLOBIN 33.6 pg (27.0-31.0); MEAN CORPUSCULAR HGB CONC 36.2 g/dL (32.0-36.0); MEAN CORPUSCULAR VOLUME 92.9 fL (81.0-99.0); MEAN PLATELET VOLUME 10.5 fL (7.9-10.8); MONOCYTES # (AUTO) 0.6 10^3/uL (0.0-1.0); MONOCYTES % (AUTO) 9.6 %; NEUTROPHILS # (AUTO) 3.3 10^3/uL (1.5-6.6); NEUTROPHILS % (AUTO) 56.6 %; PLT - PLATELET COUNT 115 10^3/uL (130-450); RED BLOOD COUNT 3.24 10^6/uL (4.20-5.40); RED CELL DISTRIBUTION WIDTH 12.6 % (12.0-15.0); WHITE BLOOD COUNT 5.9 x10^3/uL (4.8-10.8)
[2020-07-21 05:26] LABS: CALCIUM 8.2 mg/dL (8.5-10.3); CREATININE 0.6 mg/dL (0.4-1.0); POTASSIUM 3.9 mmol/L (3.5-5.0)
[2020-07-21] MEDS: PANTOPRAZOLE 40 MG TABLET PO SCH (06:12)
[2020-07-21] MEDS ORDERED: ZINC OXIDE 20% OINT 30 GM TUBE TOP PRN (06:20)
[2020-07-21] MEDS: ONDANSETRON 4 MG/2 ML VIAL IVP PRN (08:46)
[2020-07-21] MEDS: NYSTATIN POWDER 15 GM TOP SCH (08:47)
[2020-07-21] MEDS: INSULIN ASPART 300 UNIT/3 ML PEN SUBQ SCH ×4 (08:48→12:08)
[2020-07-21] MEDS: ENOXAPARIN 40 MG/0.4 ML SYRINGE SUBQ SCH (08:51)
[2020-07-21] MEDS ORDERED: GI COCKTAIL 120 ML BOTTLE PO PRN (08:51)
[2020-07-21] MEDS: polyethylene glycoL 3350 17 GM PACKET PO SCH (08:57)
[2020-07-21] MEDS ORDERED: DOCUSATE SODIUM 250 MG CAPSULE PO SCH (09:00)
[2020-07-21] MEDS ORDERED: lisinopriL 5 MG TABLET PO SCH (09:00)
[2020-07-21] MEDS ORDERED: SENNA 8.6 MG TABLET PO SCH (09:00)
[2020-07-21] MEDS: ASPIRIN EC 81 MG TABLET PO SCH (09:32)
[2020-07-21] MEDS: SERTRALINE 25 MG TABLET PO SCH (09:33)
--- NOTE | 2020-07-21 09:34 | XRAY Report ---
PROCEDURE: Abdomen 1 View X-Ray INDICATIONS: Abdominal pain. Nausea. Constipation. TECHNIQUE: 1 view of the abdomen were acquired. COMPARISON: None FINDINGS: Surgical changes and devices: Surgical clips bilaterally in the left upper and right mid quadrants. C holecystectomy clips.. Bowel: No pneumoperitoneum. The bowel gas pattern is normal. Soft tissues: Lung bases demonstrate scattered interstitial opacities bilaterally. No effusions. No masses; visualized solid organ contours appear normal in size. No suspicious abdominal calcification s. Bones: No suspicious bony abnormalities. Focal upper lumbar levoscoliosis and multilevel spondylosi s of the lumbar spine. IMPRESSION: 1. Nonspecific, nonobstructive bowel gas pattern. No radiographic evidence of significant obstipation . 2. Surgical changes throughout the abdomen. 3. Bilateral pulmonary interstitial opacities. Correlate with any symptoms. Reviewed by: Gerri Navarrete MD on 07/21/2020 9:33 AM PDT Approved by: Gerri Navarrete MD on 07/21/2020 9:33 AM PDT Station ID: [id number]
--- NOTE | 2020-07-21 11:00 | Discharge Plan ---
Discharge Plan Problem Reviewed?: Yes Disposition: Home Health Service Condition: Stable Prescriptions: Gi Cocktail 30 ml PO Q4H PRN #1 bottle PRN Reason: Abdominal Pain Insulin Glargine [Lantus Solostar] 30 unit SQ HS #2 each lisinopriL [Lisinopril] 10 mg PO DAILY #30 tablet Insulin Aspart [NovoLOG] 4 unit SUBQ TIDWM #2 each Pantoprazole [Protonix] 40 mg PO QDAC #30 tablet Ondansetron Odt [Zofran Odt] 4 mg TL Q6H PRN #10 tablet PRN Reason: Nausea / Vomiting Diet: Diabetic Activity Restrictions: Activity as Tolerated Driving Restrictions: Yes (Please do not drive any longer due to your medical conditions.) Assistance Devices: Walker Instruction Topics: Pantoprazole tablets, Insulin Aspart injection, Insulin Glargine injection, Ondansetron oral dissolving tablet, Lisinopril tablets, Diabetic Ketoacidosis Health Concerns: You were admitted to the hospital because you developed what is called diabetic ketoacidosis. You had buildup of acid in your body due to poorly controlled diabetes. Your blood sugars were quite elevated at greater than 500. You were treated with insulin and IV fluids with improvement in your condition. Your blood pressure was also low for period of time and this was likely due to severe dehydration. You responded well to IV fluids. We have recommended discontinuing your home blood pressure medications and have started you on another medication at a lower dose. We have also adjusted your insulin regimen and this is described below. Plan of Treatment: Please take 30 units of Lantus every evening as well as 4 units of NovoLog with meals. The Lantus is the long-acting insulin and the NovoLog is the short acting insulin. Please check your blood sugars in the morning and before each meal. It is recommended that you log your blood sugars and so that your primary care provider can help adjust your insulin in the future based off of this log. Please stop taking the carvedilol and telmisartan. These are 2 blood pressure medications. Your blood pressure has been controlled during this hospitalization. We have started you on a new medication called lisinopril which can also help with your blood pressure. This will be a low dose of 10 mg. Please follow-up with your primary care provider and they can adjust this as necessary. You may take the Zofran as needed for nausea. We have prescribed your Protonix which can help with gastritis. Care Goals: The goal is to control your blood sugars and to prevent diabetic ketoacidosis from occurring again. Additional Instructions or Follow Up instructions: Pleasee follow-up with your primary care provider in 1 week. Please return to the emergency department if you develop any vomiting, abdominal pain, chest pain. Follow-Up Care: Home Health - PT, Home Health - OT No Smoking: If you smoke, Please STOP! Call for help. Follow-up with: Laya Lutz DO [Primary Care Provider] -
--- NOTE | 2020-07-21 12:33 | DISCHARGE SUMMARY ---
"Discharge Summary Admit Date: 07/17/20 Discharge Date: 07/21/20 Discharging Provider: Roberto Geronimo Primary Care Provider: Laya Lutz Code Status: Attempt Resuscitation Condition at Discharge: Stable Discharge Disposition: Home Health Service - DIAGNOSES Admission Diagnoses: Diabetic ketoacidosis Dehydration Hyperlipidemia Depression with anxiety GERD Peripheral neuropathy Hypertension Discharge Diagnoses with Status of Each Condition: Diabetic ketoacidosis - resolved. Hypotension - resolved. Type 2 diabetes mellitus - stable. Hypertension - stable. Depression with anxiety - stable. Hyperlipidemia - stable. Peripheral neuropathy - stable. GERD - stable. Acute kidney injury - resolved. - HPI History of Present Illness: H&P per Dr. Adams: Patient is a 75-year-old female whose medical history includes diabetes mellitus on insulin who was brought to the ED by EMS after family called 911. She fell at home and her and son were unable to get her up. As a result they c alled 911 who then brought her to the emergency room for evaluation. Her who is at bedside helps to provide the history and reports that she has been nauseous and experiencing chills throughout today. It is unclear if her fall was mechanical fall or due to weakness. She denies hitting her head or passing out. She has been experiencing increased urinary frequency. She denied abdominal pain, chest pain or dyspnea. Patient appears somewhat lethargic and is unable to give a very reliable history. She has significantly dry oral mucosa. She also appears very unkempt. Work-up in the ED showed Blood glucose of 539, anion gap 22 pH of 7.24 Bicarb of 14.9 on VBG. As a result she was presented for admission for further management. - CONSULTS | PROCEDURES Consultations: PT, Social Work - HOSPITAL COURSE Hospital Course: She was admitted to intensive care unit for diabetic ketoacidosis, acute kidney injury, and dehydration. She was treated with IV fluids and IV insulin. Her acidosis improved within the first 24 hours. Despite initial IV hydration, she was still hypotensive with systolic in the 80s and she required norepinephrine for less than 24 hours. An infectious work-up was obtained but there was no obvious source of infection and she never received antibiotics. She responded well to further IV hydration and she was weaned off of the norepinephrine. She was transitioned to subcutaneous insulin. Her home antihypertensives continue to be held throughout the first 70 to 96 hours. Her blood pressure had improved the day prior to discharge and so we started her on 5 mg of lisinopril which she has tolerated well. On day of discharge, she did complain of some epigastric discomfort. She was given GI cocktail and Zofran with improvement. Abdominal x-ray did not reveal any obstruction. An EKG was obtained which did not suggest ischemia. Troponin was also unremarkable. Is felt that she likely had gastritis/GERD causing her abdominal discomfort. She was able to tolerate lunch and was discharged home in a stable condition. We did change her insulin regimen to Lantus 30 units in the evening and 4 units of NovoLog with meals. Her A1c was greater than 10% and there was concern about poor compliance at home. She was seen by a environmental educator during his hospitalization and she will need outpatient follow-up. Her blood sugars have been relatively stable varying from 180s to the low 200s on this regimen. I have asked her to log her blood sugars at home and to follow-up with her primary care provider. With regards to her hypertension, we discontinued her home carvedilol and telmisartan. We have placed her on 10 mg of lisinopril. She was seen by physical therapy and home health PT is recommended and a referral was placed. I also informed patient that she should not be driving and she was agreeable to this. I did fill out a route driver salesperson evaluation request form. - ALLERGIES Allergies/Adverse Reactions: Allergies Allergy/AdvReac Type Severity Reaction Status Date / Time No Known Drug Allergies Allergy Verified 07/17/20 13:55 - MEDICATIONS Home Medications: Ambulatory Orders Medication Instructions Recorded Confirmed Aspirin 81 mg PO DAILY 07/09/17 07/21/20 Triamcinolone 0.1% Oint 1 applic TOP BID 07/18/20 07/21/20 Gi Cocktail 30 ml PO Q4H PRN #1 bottle 07/21/20 Insulin Aspart [NovoLOG] 4 unit SUBQ TIDWM #2 each 07/21/20 Insulin Glargine [Lantus Solostar] 30 unit SQ HS #2 each 07/21/20 Ondansetron Odt [Zofran Odt] 4 mg TL Q6H PRN #10 tablet 07/21/20 Pantoprazole [Protonix] 40 mg PO QDAC #30 tablet 07/21/20 lisinopriL [Lisinopril] 10 mg PO DAILY #30 tablet 07/21/20 - PHYSICAL EXAM AT DISCHARGE General Appearance: positive: No acute distress, Alert Eyes Bilateral: positive: Normal inspection, Conjunctivae nml ENT: positive: ENT inspection nml Neck: positive: Nml inspection Respiratory: positive: No respiratory distress. negative: Wheezes, Rales Cardiovascular: positive: Regular rate & rhythm, Systolic murmur. negative: Tachycardia, Bradycardia Abdomen: positive: Non-tender, No distention. negative: Tenderness, Guarding, Rebound Skin: positive: Warm Extremities: positive: Pedal edema (Trace to +1 pitting edema in her bilateral lower extremities) Neurologic/Psychiatric: negative: Disoriented to person, Disoriented to place Physical Exam Other/Comments: Vital Signs - 24 hr 07/20/20 07/20/20 07/20/20 20:11 20:22 20:52 Temperature 37.0 C Heart Rate [ 81 Brachial] Heart Rate [ Monitoring electrodes] Respiratory 16 Rate Blood Pressure 179/69 H 128/82 H Blood Pressure 179/69 H [Right Brachial artery] Blood Pressure [Right Radial artery] O2 Saturation 98 07/21/20 07/21/20 07/21/20 00:24 05:19 08:19 Temperature 36.7 C 36.7 C 36.8 C Heart Rate [ 88 80 87 Brachial] Heart Rate [ Monitoring electrodes] Respiratory 18 18 16 Rate Blood Pressure Blood Pressure 126/52 L 131/82 H 166/76 H [Right Brachial artery] Blood Pressure [Right Radial artery] O2 Saturation 95 96 95 07/21/20 13:00 Temperature 36.6 C Heart Rate [ 78 Brachial] Heart Rate [ 78 Monitoring electrodes] Respiratory 20 Rate Blood Pressure Blood Pressure 172/75 H [Right Brachial artery] Blood Pressure 150/71 H [Right Radial artery] O2 Saturation 98 Oxygen O2 Source Room air - LABS Result Diagrams: 07/21/20 05:00 07/21/20 05:00 - FOLLOW UP Follow Up: She was asked to follow-up with her primary care provider in 1 week and to continue follow-up with the environmental educator. - TIME SPENT Time Spent in Discharge (Minutes): 34"
[2020-07-21 14:15] VITALS: BP 150/71
[2020-07-21] MEDS ORDERED: INSULIN GLARGINE 300 UNIT/3 ML PEN SUBQ SCH (21:00)
== END 2020-07-21 14:52 | disposition home health service (06) | DRG 638 ==
LOC: EDUNIT# → ED 13:34 → ICU 16:33 → MS2 07-20 16:41
PROVIDERS: ADMIT Internal Medicine; ATTEND Internal Medicine
DX: E11.10 Type 2 diabetes mellitus with ketoacidosis without coma (principal); N17.9 Acute kidney failure, unspecified; Z79.4 Long term (current) use of insulin; Z20.822 Contact with and (suspected) exposure to COVID-19; I95.9 Hypotension, unspecified; I10 Essential (primary) hypertension; E78.5 Hyperlipidemia, unspecified; E11.42 Type 2 diabetes mellitus with diabetic polyneuropathy; E11.65 Type 2 diabetes mellitus with hyperglycemia; K21.9 Gastro-esophageal reflux disease without esophagitis; E86.0 Dehydration; F03.90 Unspecified dementia, unspecified severity, without behavioral disturbance, psychotic disturbance, mood disturbance, and anxiety; R35.0 Frequency of micturition; K29.70 Gastritis, unspecified, without bleeding; Z91.14 Patient's other noncompliance with medication regimen; W18.30XA Fall on same level, unspecified, initial encounter; Y92.009 Unspecified place in unspecified non-institutional (private) residence as the place of occurrence of the external cause; I25.10 Atherosclerotic heart disease of native coronary artery without angina pectoris; F41.8 Other specified anxiety disorders; D72.829 Elevated white blood cell count, unspecified; E86.1 Hypovolemia; T38.3X6A Underdosing of insulin and oral hypoglycemic [antidiabetic] drugs, initial encounter
CPT/HCPCS: 36415; 71045; 74018; 80048; 80053; 81001; 81003; 82009; 82040; 82330; 82550; 82803; 83036; 83605; 83690; 83735; 84100; 84132; 84484; 85025; 85027; 87040; 87150; 87631; 93005; 96360; 96361; 97116; 97161; 97166; 97530; 99284; 99285; A9270; J1650; J1815; 0202U; 82947; 87086

== ENCOUNTER → 2020-08-20 | Outpatient (CLI) | payer MEDICARE, OTHER ==
[2020-08-20 20:44] LABS: BACTERIAL VAGINOSIS DNA NEGATIVE (NEGATIVE); CANDIDA GLABRATA DNA NEGATIVE (NEGATIVE); CANDIDA GROUP DNA POSITIVE (NEGATIVE); CANDIDA KRUSEI DNA NEGATIVE (NEGATIVE); TRICHOMONAS VAGINALIS DNA NEGATIVE (NEGATIVE)
== END ==
LOC: LAB.N 08:00
PROVIDERS: ATTEND Family Medicine
DX: R39.9 Unspecified symptoms and signs involving the genitourinary system (principal)
CPT/HCPCS: 87086; 87661; 87801

== ENCOUNTER 2020-11-23 06:22 | Inpatient (IN) | payer MEDICARE, OTHER ==
[2020-11-23 06:48] LABS: BASOPHILS # (AUTO) 0.1 10^3/uL (0.0-0.1); BASOPHILS % (AUTO) 0.3 %; EOSINOPHILS % (AUTO) 0.1 %; HCT - HEMATOCRIT 43.5 % (37.0-47.0); HGB - HEMOGLOBIN 15.8 g/dL (12.0-16.0); LYMPHOCYTES # (AUTO) 1.2 10^3/uL (1.5-3.5); LYMPHOCYTES % (AUTO) 6.5 %; MEAN CORPUSCULAR HEMOGLOBIN 33.1 pg (27.0-31.0); MEAN CORPUSCULAR HGB CONC 36.3 g/dL (32.0-36.0); MEAN CORPUSCULAR VOLUME 91.2 fL (81.0-99.0); MEAN PLATELET VOLUME 10.3 fL (7.9-10.8); MONOCYTES # (AUTO) 1.2 10^3/uL (0.0-1.0); MONOCYTES % (AUTO) 6.7 %; NEUTROPHILS # (AUTO) 15.5 10^3/uL (1.5-6.6); NEUTROPHILS % (AUTO) 85.2 %; PLT - PLATELET COUNT 278 10^3/uL (130-450); RED BLOOD COUNT 4.77 10^6/uL (4.20-5.40); RED CELL DISTRIBUTION WIDTH 13.3 % (12.0-15.0); WHITE BLOOD COUNT 18.2 x10^3/uL (4.8-10.8)
[2020-11-23 06:55] LABS: INR 1.1 (0.8-1.2); PT - PROTHROMBIN TIME 12.1 secs (9.9-12.6)
--- NOTE | 2020-11-23 06:59 | ED Physician Documentation ---
History of Present Illness - Stated complaint Stated Complaint: GLF - Chief complaint Chief Complaint: Neuro - History obtained from History obtained from: Patient, Family - History of Present Illness Timing: Prior to arrival Pain level max: 0 Pain level now: 0 - Additonal information Additional information: This is a 75-year-old woman who presents with her with complaints that she fell 4 times yesterday. She got dizzy passed out and fell in the living room. Her found her with black vomit everywhere so he got her up with the help with her son and got her in the shower and cleaned her off. He put her to bed. Twice to the night she fell out of bed onto the floor. At 5 AM he found her on the floor having vomited black vomitus again and decided was time to bring her in. She denies any injury in the falls. She did complain of a headache around 2 AM and her gave her 2 Tylenol PMs at that time. She was admitted to the hospital 2 months ago with similar episodes with her blood sugar being very high. They deny any history of GI bleeding in fact has had multiple work-up with skin installer including negative scopes. She does complain of urinary frequency for "a wild". And it "itches" when she urinates. Denies abdominal pain. No fever, palpitations or cardiac history. Denies shortness of breath although she has had a dry cough.Patient reports that her blood sugar here was very high. She did not take her insulin yesterday and she cannot remember when she last ate or drank. Review of Systems Constitutional: denies: Fever Eyes: denies: Loss of vision Nose: denies: Congestion Cardiac: denies: Chest pain / pressure, Palpitations Respiratory: reports: Cough (dry). denies: Dyspnea GI: reports: Vomiting. denies: Abdominal Pain, Nausea : reports: Dysuria, Frequency Skin: reports: Other (bruising knees and abrasions) Musculoskeletal: denies: Extremity pain, Joint pain Neurologic: reports: Syncope Endocrine: reports: Polyuria, Other (elevated blood sugar) PD PAST MEDICAL HISTORY - Past Medical History Past Medical History: Yes Cardiovascular: Hypertension, High cholesterol, Coronary artery disease Respiratory: Asthma Neuro: Peripheral neuropathy, Other Endocrine/Autoimmune: Type 2 diabetes GI: GERD, Colon polyps BATTALION FIRE CHIEF: None : Kidney stones HEENT: None Psych: Depression, Anxiety Musculoskeletal: Osteoarthritis, Chronic back pain Derm: None - Past Surgical History Past Surgical History: Yes General: Cholecystectomy, Colonoscopy /BATTALION FIRE CHIEF: Hysterectomy, Oophrectomy - Present Medications Home Medications: Ambulatory Orders Medication Instructions Recorded Confirmed Aspirin 81 mg PO DAILY 07/09/17 11/23/20 Insulin Aspart [NovoLOG] 4 unit SUBQ TIDWM #2 each 07/21/20 11/23/20 Insulin Glargine [Lantus Solostar] 30 unit SQ HS #2 each 07/21/20 11/23/20 Pantoprazole [Protonix] 40 mg PO QDAC #30 tablet 07/21/20 11/23/20 lisinopriL [Lisinopril] 10 mg PO DAILY #30 tablet 07/21/20 11/23/20 - Allergies Allergies/Adverse Reactions: Allergies Allergy/AdvReac Type Severity Reaction Status Date / Time No Known Drug Allergies Allergy Verified 07/17/20 13:55 - Social History Does the pt smoke?: No Smoking Status: Never smoker Does the pt drink ETOH?: No Does the pt have substance abuse?: No - Immunizations Immunizations are current?: Yes - POLST Patient has POLST: No POLST Status: Full Code PD ED PE NORMAL - Vitals Vital signs reviewed: Yes - General General: Alert and oriented X 3, No acute distress - HEENT HEENT: Atraumatic, PERRL, EOMI - Neck Neck: No JVD - Cardiac Cardiac: RRR (3/6 systolic murmur), Other (Feet cold bilat; 1+ pitting edema) - Respiratory Respiratory: No respiratory distress, Clear bilaterally - Abdomen Abdomen: Soft, Non tender, Non distended, Other (hypoactive bowel tones) - Derm Derm: Other (bruising to knees bilat; abrasions left knee; red, scaly rash to both pre-tibial surfaces) - Extremities Extremities: No deformity - Neuro Neuro: Alert and oriented X 3, No motor deficit, No sensory deficit, Normal speech Results - Vitals Vitals: Vital Signs - 24 hr 11/23/20 11/23/20 11/23/20 06:31 09:08 09:57 Temperature 36.9 C Heart Rate 109 H 114 H 111 H Respiratory 14 18 20 Rate Blood Pressure 137/73 H 140/70 H 127/70 O2 Saturation 100 100 100 11/23/20 11/23/20 11/23/20 10:42 11:53 13:00 Temperature Heart Rate 107 H 102 H 99 Respiratory 20 22 18 Rate Blood Pressure 94/56 L 109/60 89/59 L O2 Saturation 99 97 99 11/23/20 11/23/20 11/23/20 13:25 14:19 15:02 Temperature 37.2 C Heart Rate 100 97 93 Respiratory 12 17 18 Rate Blood Pressure 111/64 106/67 116/63 O2 Saturation 100 100 100 Oxygen O2 Source Room air - EKG (time done) 0835 Rate: Rate (enter#) (104) Rhythm: Sinus tachycardia Ischemia: Q waves (III), Non specific changes Compare to prior EKG: Old EKG unavailable - Labs Labs: Laboratory Tests 11/23/20 11/23/20 11/23/20 06:30 06:30 06:30 WBC 18.2 H RBC 4.77 Hgb 15.8 Hct 43.5 MCV 91.2 MCH 33.1 H MCHC 36.3 H RDW 13.3 Plt Count 278 MPV 10.3 Neut # (Auto) 15.5 H Lymph # (Auto) 1.2 L [place] # (Auto) 1.2 H Eos # (Auto) 0.0 Baso # (Auto) 0.1 Absolute Nucleated RBC 0.00 Nucleated RBC % 0.0 PT 12.1 INR 1.1 APTT 24.3 L VBG pH VBG pCO2 VBG pO2 VBG HCO3 VBG Total CO2 VBG O2 Saturation VBG Base Excess Sodium 134 L Potassium 4.1 Chloride 96 L Carbon Dioxide 11 L* Anion Gap 27.0 H BUN 32 H Creatinine 1.3 H Estimated GFR (MDRD) 40 L Glucose 626 H* POC Whole Bld Glucose Lactic Acid Calcium 9.5 Total Bilirubin 2.9 H AST 18 ALT 15 Alkaline Phosphatase 77 Total Protein 7.3 Albumin 4.2 Globulin 3.1 Albumin/Globulin Ratio 1.4 Lipase 27 Urine Color Urine Clarity Urine pH Ur Specific [place] Urine Protein Urine Glucose (UA) Urine Ketones Urine Occult Blood Urine Nitrite Urine Bilirubin Urine Urobilinogen Ur Leukocyte Esterase Ur Microscopic Review Urine Culture Comments Serum Ketones 11/23/20 11/23/20 11/23/20 06:30 06:41 07:34 WBC RBC Hgb Hct MCV MCH MCHC RDW Plt Count MPV Neut # (Auto) Lymph # (Auto) [place] # (Auto) Eos # (Auto) Baso # (Auto) Absolute Nucleated RBC Nucleated RBC % PT INR APTT VBG pH VBG pCO2 VBG pO2 VBG HCO3 VBG Total CO2 VBG O2 Saturation VBG Base Excess Sodium Potassium Chloride Carbon Dioxide Anion Gap BUN Creatinine Estimated GFR (MDRD) Glucose POC Whole Bld Glucose 557 H* Lactic Acid Calcium Total Bilirubin AST ALT Alkaline Phosphatase Total Protein Albumin Globulin Albumin/Globulin Ratio Lipase Urine Color YELLOW Urine Clarity CLEAR Urine pH 5.5 Ur Specific [place] 1.020 Urine Protein NEGATIVE Urine Glucose (UA) >=1000 H Urine Ketones >=80 H Urine Occult Blood TRACE-LYSE Urine Nitrite NEGATIVE Urine Bilirubin NEGATIVE Urine Urobilinogen 0.2 (NORMAL) Ur Leukocyte Esterase NEGATIVE Ur Microscopic Review NOT INDICATED Urine Culture Comments NOT INDICATED Serum Ketones MODERATE H 11/23/20 11/23/20 11/23/20 07:47 07:47 08:08 WBC RBC Hgb Hct MCV MCH MCHC RDW Plt Count MPV Neut # (Auto) Lymph # (Auto) [place] # (Auto) Eos # (Auto) Baso # (Auto) Absolute Nucleated RBC Nucleated RBC % PT INR APTT VBG pH 7.205 L VBG pCO2 31.5 L VBG pO2 24.1 L VBG HCO3 12.2 L VBG Total CO2 13.1 L VBG O2 Saturation 45.1 L VBG Base Excess -14.4 L Sodium Potassium Chloride Carbon Dioxide Anion Gap BUN Creatinine Estimated GFR (MDRD) Glucose POC Whole Bld Glucose 494 H Lactic Acid 1.7 Calcium Total Bilirubin AST ALT Alkaline Phosphatase Total Protein Albumin Globulin Albumin/Globulin Ratio Lipase Urine Color Urine Clarity Urine pH Ur Specific [place] Urine Protein Urine Glucose (UA) Urine Ketones Urine Occult Blood Urine Nitrite Urine Bilirubin Urine Urobilinogen Ur Leukocyte Esterase Ur Microscopic Review Urine Culture Comments Serum Ketones 11/23/20 11/23/20 11/23/20 09:36 10:04 10:41 WBC RBC Hgb Hct MCV MCH MCHC RDW Plt Count MPV Neut # (Auto) Lymph # (Auto) [place] # (Auto) Eos # (Auto) Baso # (Auto) Absolute Nucleated RBC Nucleated RBC % PT INR APTT VBG pH VBG pCO2 VBG pO2 VBG HCO3 VBG Total CO2 VBG O2 Saturation VBG Base Excess Sodium 140 Potassium 3.8 Chloride 105 Carbon Dioxide 16 L Anion Gap 19.0 H BUN 30 H Creatinine 1.1 H Estimated GFR (MDRD) 48 L Glucose 380 H POC Whole Bld Glucose 397 H 325 H Lactic Acid Calcium 9.4 Total Bilirubin AST ALT Alkaline Phosphatase Total Protein Albumin Globulin Albumin/Globulin Ratio Lipase Urine Color Urine Clarity Urine pH Ur Specific [place] Urine Protein Urine Glucose (UA) Urine Ketones Urine Occult Blood Urine Nitrite Urine Bilirubin Urine Urobilinogen Ur Leukocyte Esterase Ur Microscopic Review Urine Culture Comments Serum Ketones 11/23/20 11/23/20 11/23/20 11:52 12:34 12:45 WBC RBC Hgb Hct MCV MCH MCHC RDW Plt Count MPV Neut # (Auto) Lymph # (Auto) [place] # (Auto) Eos # (Auto) Baso # (Auto) Absolute Nucleated RBC Nucleated RBC % PT INR APTT VBG pH VBG pCO2 VBG pO2 VBG HCO3 VBG Total CO2 VBG O2 Saturation VBG Base Excess Sodium 142 Potassium 3.4 L Chloride 108 Carbon Dioxide 18 L Anion Gap 16.0 H BUN 32 H Creatinine 1.1 H Estimated GFR (MDRD) 48 L Glucose 189 H POC Whole Bld Glucose 218 H 164 H Lactic Acid Calcium 9.2 Total Bilirubin AST ALT Alkaline Phosphatase Total Protein Albumin Globulin Albumin/Globulin Ratio Lipase Urine Color Urine Clarity Urine pH Ur Specific [place] Urine Protein Urine Glucose (UA) Urine Ketones Urine Occult Blood Urine Nitrite Urine Bilirubin Urine Urobilinogen Ur Leukocyte Esterase Ur Microscopic Review Urine Culture Comments Serum Ketones 11/23/20 11/23/20 11/23/20 13:19 14:19 14:55 WBC RBC Hgb Hct MCV MCH MCHC RDW Plt Count MPV Neut # (Auto) Lymph # (Auto) [place] # (Auto) Eos # (Auto) Baso # (Auto) Absolute Nucleated RBC Nucleated RBC % PT INR APTT VBG pH VBG pCO2 VBG pO2 VBG HCO3 VBG Total CO2 VBG O2 Saturation VBG Base Excess Sodium Potassium Chloride Carbon Dioxide Anion Gap BUN Creatinine Estimated GFR (MDRD) Glucose POC Whole Bld Glucose 128 H 144 H 145 H Lactic Acid Calcium Total Bilirubin AST ALT Alkaline Phosphatase Total Protein Albumin Globulin Albumin/Globulin Ratio Lipase Urine Color Urine Clarity Urine pH Ur Specific [place] Urine Protein Urine Glucose (UA) Urine Ketones Urine Occult Blood Urine Nitrite Urine Bilirubin Urine Urobilinogen Ur Leukocyte Esterase Ur Microscopic Review Urine Culture Comments Serum Ketones 11/23/20 15:24 WBC RBC Hgb Hct MCV MCH MCHC RDW Plt Count MPV Neut # (Auto) Lymph # (Auto) [place] # (Auto) Eos # (Auto) Baso # (Auto) Absolute Nucleated RBC Nucleated RBC % PT INR APTT VBG pH VBG pCO2 VBG pO2 VBG HCO3 VBG Total CO2 VBG O2 Saturation VBG Base Excess Sodium 141 Potassium 3.4 L Chloride 108 Carbon Dioxide 21 Anion Gap 12.0 BUN 32 H Creatinine 1.0 Estimated GFR (MDRD) 54 L Glucose 145 H POC Whole Bld Glucose Lactic Acid Calcium 8.9 Total Bilirubin AST ALT Alkaline Phosphatase Total Protein Albumin Globulin Albumin/Globulin Ratio Lipase Urine Color Urine Clarity Urine pH Ur Specific [place] Urine Protein Urine Glucose (UA) Urine Ketones Urine Occult Blood Urine Nitrite Urine Bilirubin Urine Urobilinogen Ur Leukocyte Esterase Ur Microscopic Review Urine Culture Comments Serum Ketones PD MEDICAL DECISION MAKING - ED course ED course: 0845: Patient is in DKA with a venous pH of 7.2 bicarb is 11 with an anion gap of 27. Blood sugar was 626 and she is positive for ketones. No sign of urinary tract infection.Her white blood cell count is 18.2. The patient has been given a liter of saline, Protonix 40 mg IV and Zofran 4 mg IV. She has had no emesis here and her hemoglobin is stable at 15.8. She does have an elevated bili however it has been elevated to the same extent previously and has normal liver enzymes.She has been in consult with skin installer in the past. Spoke to the warehouse handler regarding admission but they are unclear whether they had bed capacity for her at this time. Status for admission or transfer is pending. 1038: Per staffing, patient will be able to be accomodated for admission here. Waiting to speak with hospitalist. 1553: Patient's BMP was monitored here in the emergency department with normalization of her anion gap. No ICU beds available, However the patient was able to be transitioned with 30 units subcu Lantus dose. She was tolerating fluids. Potassium was administered for low potassium. Spoke with the hospitalist and they will accept her for admission to the floor. Departure - Departure Disposition: 66 [facility] DC/Xfer Clinical Impression: DKA (diabetic ketoacidosis) Condition: Good
[2020-11-23 07:02] LABS: PARTIAL THROMBOPLASTIN TIME 24.3 secs (24.9-33.3)
[2020-11-23 07:03] LABS: ALBUMIN 4.2 g/dL (3.2-5.5); ALBUMIN/GLOBULIN RATIO 1.4 (1.0-2.2); BILIRUBIN,TOTAL 2.9 mg/dL (0.2-1.0); CALCIUM 9.5 mg/dL (8.5-10.3); CREATININE 1.3 mg/dL (0.4-1.0); POTASSIUM 4.1 mmol/L (3.5-5.0); TOTAL PROTEIN 7.3 g/dL (6.7-8.2)
[2020-11-23] MEDS ORDERED: SODIUM CHLORIDE 0.9% 1,000 ML IV ONE (07:17)
[2020-11-23] MEDS ORDERED: PANTOPRAZOLE 40 MG VIAL IVP STA (07:24)
[2020-11-23] MEDS ORDERED: INSULIN REGULAR HUMAN 100 UNIT/1 ML 10 ML MDV IVP STA (07:24)
[2020-11-23] MEDS ORDERED: INSULIN REGULAR HUMAN 100 UNIT in SODIUM CHLORIDE 0.9% 100ML 99 ML IV STA (07:24)
[2020-11-23] MEDS ORDERED: ONDANSETRON 4 MG/2 ML VIAL IVP STA (07:25)
[2020-11-23 07:56] LABS: VBG BASE EXCESS -14.4 mmol/L (-2 - +2); VBG HCO3 12.2 mmol/L (23-28); VBG OXYGEN SATURATION 45.1 % (60-80); VBG PCO2 31.5 mmHg (41-51); VBG PH 7.205 (7.31-7.41); VBG PO2 24.1 mmHg (25-47); VBG TOTAL CO2 13.1 mmol/L (24-29)
[2020-11-23 08:06] LABS: GLUCOSE, URINE (UA) >=1000 mg/dL (NEGATIVE); KETONES,URINE (UA) >=80 mg/dL (NEGATIVE); LEUKOCYTE ESTERASE, URINE NEGATIVE (NEGATIVE); NITRITE,URINE NEGATIVE (NEGATIVE); OCCULT BLOOD,URINE TRACE-LYSE (NEGATIVE); PH,URINE 5.5 PH (5.0-7.5); PROTEIN,URINE NEGATIVE (NEGATIVE); UROBILINOGEN,URINE 0.2 (NORMAL) E.U./dL (NORMAL)
[2020-11-23 08:10] LABS: CLARITY,URINE CLEAR (CLEAR)
[2020-11-23 08:18] LABS: BILIRUBIN,URINE NEGATIVE (NEGATIVE); ICTOTEST,URINE NEGATIVE
[2020-11-23] MEDS ORDERED: LACTATED RINGERS 1,000 ML IV STA (08:50)
[2020-11-23 10:30] LABS: CALCIUM 9.4 mg/dL (8.5-10.3); CREATININE 1.1 mg/dL (0.4-1.0); POTASSIUM 3.8 mmol/L (3.5-5.0)
[2020-11-23 12:54] LABS: CALCIUM 9.2 mg/dL (8.5-10.3); CREATININE 1.1 mg/dL (0.4-1.0); POTASSIUM 3.4 mmol/L (3.5-5.0)
[2020-11-23] MEDS ORDERED: DEXTROSE 5%-0.9% NACL 1,000 ML IV SCH (13:13)
[2020-11-23] MEDS ORDERED: DEXTROSE 5%-0.9% NACL 1,000 ML IV STA (13:17)
[2020-11-23] MEDS ORDERED: POTASSIUM CHLOR 10 MEQ/100 ML 10 MEQ/100 ML BAG IV STA (15:07)
[2020-11-23 15:38] LABS: CALCIUM 8.9 mg/dL (8.5-10.3); POTASSIUM 3.4 mmol/L (3.5-5.0)
[2020-11-23] MEDS ORDERED: SODIUM CHLORIDE FLUSH 0.9% 10 ML SYRINGE IVP PRN (15:43)
[2020-11-23] MEDS ORDERED: ACETAMINOPHEN 325 MG TABLET PO PRN (15:43)
[2020-11-23] MEDS ORDERED: ONDANSETRON 4 MG/2 ML VIAL IVP PRN (15:43)
[2020-11-23] MEDS ORDERED: oxyCODONE 5 MG TABLET PO PRN (15:43)
[2020-11-23] MEDS ORDERED: ONDANSETRON ODT 4 MG TABLET TL PRN (15:43)
[2020-11-23] MEDS ORDERED: PROCHLORPERAZINE 10 MG/2 ML VIAL IVP PRN (15:43)
--- NOTE | 2020-11-23 16:15 | HISTORY & PHYSICAL EXAMINATION ---
Chief Complaint - Chief Complaint Chief Complaint: found down History of Present Illness - Admitted From Admitted From:: home via EMS - History Obtained From Records Reviewed: [facility] History obtained from: Dr. Selby Exam Limitations: patient is demented - History of Present Illness HPI Comment/Other: This is a 75-year-old female who has been declining for close to 2 years with regards to memory and ability to take care of her self. For example, she used to go to the grocery store with her and son. But after falling to many times in public, her no longer takes her out in public. He is afraid of her falling. She is fallen a few times at home. She is supposed to be walking with a cane or a walker and does sometimes but sometimes does not. Last admission to the hospital in July of this year, her son and are supposed to be giving her her medications. She is not felt to be cognitively aware enough to give herself her own medicines. With her goals met of being independent with the use of an assistive device. With that admission she had an unwitnessed fall in her living room around July 16 or July 17. She remained conscious and crawled on the floor and attempt to get her but he was asleep. Her woke up the next morning and found her on the floor and called EMS. It is unclear where her son was. Found to be severely dehydrated, DKA. After hydration and control of her glucose, she was sent home with home health physical therapy, nurse aide. She was seen in office followup 07/29/20. She was discharged from home health on September 23. Mobility goals were met and that the patient was able to stand to transfer with cues required for hand and feet placement. She also had to be cued for break management on her walker. She is able to walk 35 feet with standby assist and a four-wheel walker. Needed constant cues. Some of the cues were with regards to balance, some work with regards to keeping the walker close to her body, and some were required to be able to maintain balance with turning. She required a lot of extended seated rest breaks between activities due to generalized weakness and decreased functional activity tolerance. At the beginning of the home health care, nursing stated stated that the patient did have pressure ulcers to bilateral buttocks as well as uncontrolled diabetes. Patient was unable to use her glucometer due to cognitive deficit. She struggled with the lancet device. It was recommended that her caregivers take over completely. By discharge her decubitus ulcers had improved and they were closing up and healing. She was a ble to test her glucose level without verbal cue. There were no falls noted during that time. It was stressed to her that she needed to follow-up with her primary care provider on a regular basis. She has not done so. She was last physically seen at the walk-in clinic on August 20 for intermittent itchy vagina for a few weeks. A urinalysis was done. There is no physical exam of her labia or vagina noted. She was put on Diflucan. Has moderate aortic stenosis as well as chronic diastolic heart failure with venous stasis dermatitis. She was seen by her sample prep technician in 2018. She is supposed to be seen every year with a follow-up echo but has not been able to do so. From the son, he gives a history of her sleeping more and more. No specific fevers, cough, congestion. She is incontinent of urine but she always is. In the last two weeks sleeps all day and wanders in house at night. Son and can't necessarily give her her meds because of that. She is also noncompliant with diet and she is eating things like cans of chili w beans for dinner when they aren't around. She fell several times yesterday as she lost her balance. late last night or early, early this morning, she was found down again. Had coffee-ground emesis after they got her up. Had 3 episodes of brown emesis. stayed up all night with her and this am, decided to bring her in. Brought to the emergency room via POV where temperature was 36.9. Heart rate 109. Blood pressure 137/73. Respirations 14 and 100% on room air. She was a confused elderly female who sodium was 134, carbon dioxide 11, anion gap 27, BUN 32, creatinine 1.3. Glucose 626. Lactic acid 1.7. White cell count was 18.2, hemoglobin 15.8. Urinalysis had glucosuria and ketonuria but was not infected. Moderate serum ketones. Venous blood gas was 7.2 with a base excess of -14.4. 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 Troponin was not done. She was not able to give a history and was clearly with a cognitive deficit. She was identified as being in DKA. However we did not have any ICU beds available. The patient was kept in the emergency room on an insulin drip, and she has now transitioned to Lantus, IV fluids, and a low carb diet and we are admitting her to [facility]. Troponins are still pending. Chest x-ray was not done. History - Past Medical History Cardiovascular: reports: Congestive heart failure (diastolic heart failure), Hypertension, High cholesterol, Coronary artery disease, Peripheral Vascular Disease (w claudication), Valve disorder (mod aortic stenosis, Peak 3.7 m per sec, grad 34 mmHg, TVI 0.37 in 2018. To be seen yearly), Other (edema) Respiratory: reports: Asthma, Sleep apnea (suspected but not treated) Neuro: reports: Dementia, Peripheral neuropathy Endocrine/Autoimmune: reports: Type 2 diabetes, Other (morbid obesity) GI: reports: GERD, Colon polyps (adenomatous), Cholelithiasis (w biliary dyskinesia 09/2010) CHURN DRILLER: reports: Ovarian cancer (1992 and 2009), Other (Vulvovaginitis with erosive lichen planus) : reports: Kidney stones HEENT: reports: Other (allergic rhinitis) Psych: reports: Depression, Anxiety Musculoskeletal: reports: Osteoarthritis, Osteopenia, Chronic back pain (from DDD), Other (severe nocturnal leg cramps) Derm: reports: Other (chronic venous stasis from edema, fiona intertrigo) MRSA Hx?: No - Past Surgical History General: reports: Cholecystectomy (09/14/2010), Colonoscopy /CHURN DRILLER: reports: Hysterectomy, Oophrectomy - Family & Social History Family History Comment/Other: father of stroke and had dementia. mom had dementia at her . 2 children: son had stroke, daughter is healthy Living arrangement: At home Living Situation: With spouse/s.o., With family Social History Notes: she never smoked, no history of alcohol abuse and rarely drank, no history of recreational substances. - Substance History Use: Uses substance without health or social issues: NONE Abuse: Recurrent use of substance despite neg consequences: NONE Dependence: Experiences withdrawal or developed tolerances: NONE - POLST Patient has POLST: No POLST Status: Full Code Meds/Allgy - Home Medications Home Medications: Ambulatory Orders Medication Instructions Recorded Confirmed Aspirin 81 mg PO DAILY 07/09/17 11/23/20 Insulin Aspart [NovoLOG] 4 unit SUBQ TIDWM #2 each 07/21/20 11/23/20 Insulin Glargine [Lantus Solostar] 30 unit SQ HS #2 each 07/21/20 11/23/20 Pantoprazole [Protonix] 40 mg PO QDAC #30 tablet 07/21/20 11/23/20 lisinopriL [Lisinopril] 10 mg PO DAILY #30 tablet 07/21/20 11/23/20 - Allergies Allergies/Adverse Reactions: Allergies Allergy/AdvReac Type Severity Reaction Status Date / Time No Known Drug Allergies Allergy Verified 07/17/20 13:55 Review of Systems - Gastrointestinal Gastrointestinal: reports: Nausea (in the past and nuc med emptying study nml 06/18/12), Vomiting - All Other Systems All Other Systems: reports: Other (son gave as much of ROS as he could but he said his father could say more. However, no answer from 's number and son thinks dad is asleep after being up all night.) Prior Level of Functionality: Previous social work notes from 07/2020: Patient and have been for over 45 years. They reside in their single-level home; two steps going into the home. Their adult son, Vasu, has lived with them for the last 2 years following a significant stroke; he is independent and regained lower mobility, but left arm is immobile. They have a daughter and two granddaughters that live in [place]. Patient reported that she ambulates independently, however confessed that she should likely be using a walker or a cane. The patient is able to shower and dress herself. They have a epidemiology investigator shower with an installed bench. They have historically obtained durable medical equipment from the [employer]. Patient is incontinent of urine and gets up frequently to go to the restroom; she did not like the depends brand she got so she has not worn them-spouse will purchase a different brand. Spouse reported that the patient has had 2-3 falls in the last 6 months, including a fall at the grocery store. As a result, spouse no longer takes the patient to the grocery store. He or their son will go to the grocery store and ensure that someone stays with the patient. Spouse will not allow son to drive him to doctor's appointments to [place] as spouse wants their son to stay with the patient. Spouse began to notice a decline in patient's memory over the last year. She is typically able to manage her medication and she continues to manage their finances. The impairment in memory seemingly worsened over the last two months. Admittedly spouse states that he and their son had not considered managing patient's medications or insulin as the patient places them in a med minder. Spouse is concerned that the patient has also become weaker and has had difficulty getting out of the recliner. Patient had appointment with PCP but went independently; spouse has not communicated his concerns to patient's PCP. Patient receives approximately $6-700 a month. Spouse reported he receives over $2500 a month through [employer], [employer], [employer]. He is unsure of the total amount due to patient handling the finances. He does know that they are well established financially. He is open to beginning to manage patient's medications and obtaining a caregiver to help the patient in the home as this is their long term acute care registered nurse care goal. Exam - Vital Signs Reviewed Vital Signs: Yes Vital Signs: Vital Signs x48h Temp Pulse Resp BP Pulse Ox 11/23/20 15:58 93 21 109/57 L 98 11/23/20 15:02 93 18 116/63 100 11/23/20 14:19 37.2 C 97 17 106/67 100 11/23/20 13:25 100 12 111/64 100 11/23/20 13:00 99 18 89/59 L 99 11/23/20 11:53 102 H 22 109/60 97 11/23/20 10:42 107 H 20 94/56 L 99 11/23/20 09:57 111 H 20 127/70 100 11/23/20 09:08 114 H 18 140/70 H 100 - Physical Exam General Appearance: positive: Alert, Other (pleasant elderly female, disheveled, cooperative but has no idea why she's here or what's wrong) Eyes Bilateral: positive: PERRL, EOMI ENT: positive: Dry mucous membranes Neck: positive: No JVD. negative: Stiff neck, Carotid bruit Respiratory: positive: No respiratory distress. negative: Wheezes, Rales, Rhonchi Cardiovascular: positive: Regular rate & rhythm, Systolic murmur. negative: Gallop/S4, Friction rub Peripheral Pulses: positive: 0 Abdomen: positive: Non-tender, No organomegaly, Nml bowel sounds, No distention Skin: positive: Warm, Dry, Pallor Neurologic/Psychiatric: positive: CN's nml (2-12), Motor nml (in that she doesn't have focal deficits, but just getting her to sit up is an effort due to weakness.), Disoriented to person, Disoriented to place, Disoriented to time. negative: Facial droop, Slurred/abnml speech Conclusion/Plan - Problem List (1) DKA (diabetic ketoacidosis) Conclusion/Plan: Unclear what the inciting event was. Urinalysis is negative. She is not having an WI. Lung exam does not show pneumonia. Unclear why she is in DKA other than dietary noncompliance and possibly not getting her medications appropriately. Her anion gap is normalized now after being in the ER with an insulin drip. Plan: She was on an IV insulin drip in the emergency room. She is now transitioned to [facility] off an insulin drip. I am resuming her Lantus and then starting her food an hour later. Resume intensive insulin monitoring and do short acting insulin before meals with a fixed nutritional dose as well as sliding scale IV fluids but avoid CHF with aortic stenosis. Check potassium magnesium phosphorus and replace as necessary Check troponin check CXR Qualifiers: Diabetes mellitus type: type 2 (2) Dehydration Conclusion/Plan: On physical exam with dry oral mucosa. Baseline creatinine is 0.6. She presents with a creatinine of 1.3. It has been gradually improving in the emergency room so that by the time she gets to [facility] she is 1.0. Plan: Continue IV hydration until creatinine is normal Avoid nephrotoxic agents (3) Acute kidney injury Conclusion/Plan: Due to dehydration. See treatment as above. (4) Decreased mobility and endurance Conclusion/Plan: Multiple factors. This is an elderly lady who has degenerative disc disease in her back and has chronic leg pain as well as intratrochanteric bursitis history. She has aortic stenosis which probably causes dyspnea on exertion. She is demented and probably does not lend itself to exercise or dietary restrictions. As age has come up on her, all of these factors are against her. Plan: Make sure she does not have any decubiti and I will have nursing roll her over Physical therapy evaluation and treatment. She may be candidate for resuming home health again I have also expressed my concern to the son that she may be beyond their ability to take care of her. It is hard for her to be compliant with diet and medication due to her dementia, but also because of her strong will to go against what they want her to do. The son states that he and his sister have told dad that maybe it is time for her to go to a snf or a long term facility but dad has been resistant. They will bring it up again. (5) Aortic stenosis Conclusion/Plan: Ago she had moderate aortic stenosis. She was supposed to been seen on a yearly basis. I do not think this patient is a surgical candidate due to her age and dementia and declining status. However it would be useful to know if some of her falls are due to worsening valve disease. It might help the family do some planning with regards to how they will take care of her for the future. Qualifiers: Cardiac valve disease etiology: nonrheumatic Qualified Code(s): I35.0 - Nonrheumatic aortic (valve) stenosis (6) GERD (gastroesophageal reflux disease) Conclusion/Plan: resume PPI Qualifiers: Esophagitis bleeding: without hemorrhage (7) Hypertension Conclusion/Plan: resume lisinopril Qualifiers: Hypertension type: primary hypertension Qualified Code(s): I10 - Essential (primary) hypertension (8) Dementia Conclusion/Plan: she is assumed to have alzheimer's or vascular dementia. no work up in the past in PCP office. Plan; social work consult to identify home needs, to see if we can help son and daughter find right place for mom in the face of dad's objections. Qualifiers: Dementia type: Alzheimer's (9) Full code status Conclusion/Plan: Son states that he is never really discussed CODE STATUS with his mom. He does not even know if his dad has discussed it with mom. I explained that at this time, by default, she will be a full code. But I would ask that he, his sister, and dad to 10 a discussed her overall status. Her decline. How aggressive do they want us to be in the future especially if aortic stenosis becomes a problem. - Lab Results Lab results reviewed: Yes Fish Bones: 11/23/20 06:30 11/23/20 15:24
[2020-11-23] MEDS: INSULIN GLARGINE 300 UNIT/3 ML PEN SUBQ SCH ×2 (16:42→21:00)
[2020-11-23] MEDS: INSULIN ASPART 300 UNIT/3 ML PEN SUBQ SCH ×3 (18:31→21:45)
[2020-11-23] MEDS: NS W/20 MEQ KCL 1,000 ML IV SCH ×2 (18:48→23:54)
[2020-11-23] MEDS: SODIUM CHLORIDE FLUSH 0.9% 10 ML SYRINGE IVP SCH (18:48)
[2020-11-23 19:41] LABS: B. PARAPERTUSSIS- RESP PCR PAN NOT DETECTED; B. PERTUSSIS- RESP PCR PANEL NOT DETECTED; C. PNEUMONIAE- RESP PCR PANEL NOT DETECTED; CORONAVIRUS 229E-RESP PCR NOT DETECTED; CORONAVIRUS HKU1-RESP PCR NOT DETECTED; CORONAVIRUS NL63-RESP PCR NOT DETECTED; CORONAVIRUS OC43-RESP PCR NOT DETECTED; HUMAN METAPNEUMOVIRUS NOT DETECTED; INFLUENZA A- RESP PCR PANEL NOT DETECTED; INFLUENZA B - RESP PCR PANEL NOT DETECTED; M. PNEUMONIAE- RESP PCR PANEL NOT DETECTED; PARAINFLUENZA VIRUS 1 NOT DETECTED; PARAINFLUENZA VIRUS 2 NOT DETECTED; PARAINFLUENZA VIRUS 3 NOT DETECTED; PARAINFLUENZA VIRUS 4 NOT DETECTED; RHINOVIRUS/ENTEROVIRUS NOT DETECTED; RSV- RESP PCR PANEL NOT DETECTED; SARS-CoV-2 -RESP PCR PANEL NOT DETECTED
[2020-11-23 20:41] LABS: CALCIUM 8.9 mg/dL (8.5-10.3)
[2020-11-23] MEDS ORDERED: INSULIN GLARGINE 300 UNIT/3 ML PEN SUBQ SCH (21:00)
[2020-11-23 21:07] LABS: MAGNESIUM 1.7 mg/dL (1.7-2.8)
[2020-11-24 00:02] LABS: GLUCOSE, URINE (UA) >=1000 mg/dL (NEGATIVE); KETONES,URINE (UA) >=80 mg/dL (NEGATIVE); LEUKOCYTE ESTERASE, URINE SMALL (NEGATIVE); NITRITE,URINE NEGATIVE (NEGATIVE); OCCULT BLOOD,URINE SMALL (NEGATIVE); PH,URINE 5.5 PH (5.0-7.5); PROTEIN,URINE NEGATIVE (NEGATIVE); UROBILINOGEN,URINE 0.2 (NORMAL) E.U./dL (NORMAL)
[2020-11-24 00:12] LABS: CLARITY,URINE HAZY (CLEAR)
[2020-11-24 00:18] LABS: BACTERIA,URINE Few /HPF (None Seen); BILIRUBIN,URINE NEGATIVE (NEGATIVE); ICTOTEST,URINE NEGATIVE; SQUAMOUS EPITHELIAL CELL,UR MOD Squamous (<= Few); WBC,URINE >25 /HPF (0-5)
[2020-11-24] MEDS: NS W/20 MEQ KCL 1,000 ML IV SCH ×3 (05:00→15:39)
[2020-11-24] MEDS: SODIUM CHLORIDE FLUSH 0.9% 10 ML SYRINGE IVP SCH ×3 (07:33→17:16)
[2020-11-24] MEDS: PANTOPRAZOLE 40 MG TABLET PO SCH (07:33)
[2020-11-24] MEDS: ENOXAPARIN 40 MG/0.4 ML SYRINGE SUBQ SCH (08:20)
[2020-11-24] MEDS: polyethylene glycoL 3350 17 GM PACKET PO SCH (08:21)
[2020-11-24] MEDS: INSULIN ASPART 300 UNIT/3 ML PEN SUBQ SCH ×7 (08:23→21:00)
[2020-11-24 08:26] LABS: ESTIMATED AVERAGE GLUCOSE 258 mg/dL (70-100); HEMOGLOBIN A1c% 10.6 % (4.27-6.07)
[2020-11-24] MEDS: lisinopriL 5 MG TABLET PO SCH (08:29)
[2020-11-24] MEDS ORDERED: NON FORMULARY MED (Lisinopril [Lisinopril] 10 MG Tablet) PO SCH (09:00)
[2020-11-24 10:00] LABS: BASOPHILS % (AUTO) 0.2 %; EOSINOPHILS # (AUTO) 0.1 10^3/uL (0.0-0.7); EOSINOPHILS % (AUTO) 0.8 %; HCT - HEMATOCRIT 35.7 % (37.0-47.0); HGB - HEMOGLOBIN 12.9 g/dL (12.0-16.0); LYMPHOCYTES # (AUTO) 1.3 10^3/uL (1.5-3.5); LYMPHOCYTES % (AUTO) 12.7 %; MEAN CORPUSCULAR HEMOGLOBIN 33.4 pg (27.0-31.0); MEAN CORPUSCULAR HGB CONC 36.1 g/dL (32.0-36.0); MEAN CORPUSCULAR VOLUME 92.5 fL (81.0-99.0); MEAN PLATELET VOLUME 10.1 fL (7.9-10.8); MONOCYTES # (AUTO) 0.7 10^3/uL (0.0-1.0); MONOCYTES % (AUTO) 6.8 %; NEUTROPHILS # (AUTO) 8.4 10^3/uL (1.5-6.6); NEUTROPHILS % (AUTO) 79.1 %; PLT - PLATELET COUNT 173 10^3/uL (130-450); RED BLOOD COUNT 3.86 10^6/uL (4.20-5.40); RED CELL DISTRIBUTION WIDTH 13.6 % (12.0-15.0); WHITE BLOOD COUNT 10.6 x10^3/uL (4.8-10.8)
[2020-11-24 10:10] LABS: CALCIUM 8.5 mg/dL (8.5-10.3); CREATININE 0.7 mg/dL (0.4-1.0)
[2020-11-24] MEDS: NYSTATIN POWDER 15 GM TOP SCH ×2 (10:25→21:01)
--- NOTE | 2020-11-24 13:14 | PHARMACY PROGRESS NOTE ---
- Best Possible Medication History Admit Date and Time: 11/23/20 1543 Processed by: Pharmacy Medication History completed: Yes Patient Interview: Completed Secondary Source(s): Pharmacy records, Insurance records Med list originally confirmed by ER nurse. Sertraline and triamcinolone were on patient's insurance pull but not their list, so I went and asked the patient about her medications again. She confirmed taking both sertraline and triamcin olone in addition to the other meds that were already confirmed. As the person ultimately responsible for medication therapy, providers are able to order a medication from an existing home medication list in [facility] via the "Reconcile Routine" prior to Confirmation of that medication by senior technical support engineer. Such practice is discouraged except when the physician, in their clinical judgment, deems that a medical need exists for a medication without regard to previous use.
[2020-11-24] MEDS: NYSTATIN CREAM 15 GM TUBE TOP SCH ×2 (15:39→21:02)
--- NOTE | 2020-11-24 16:28 | PROVIDER PROGRESS NOTE ---
Subjective - Prog Note Date Prog Note Date: 11/24/20 Prog Note Time: 16:56 - Subjective Pt reports feeling: Improved Subjective: she feels so much better but can't say what happened that she fell so much. Does state that she may have not been very good with eating the right foods or taking her medicine. the only complaint she has right now is left sided rib cage pain under her left breast. Non radiating. She can reproduce it by pressing on her ribs. Pain hurts w deep breath or with lifting up her arm. Gone at rest and only happens w moving such as sitting up. Current Medications - Current Medications Current Medications: Active Medications Acetaminophen (Acetaminophen 325 Mg Tablet) 650 mg PO Q4HR PRN PRN Reason: Pain 1 to 4 Enoxaparin Sodium (Enoxaparin 40 Mg/0.4 Ml Syringe) 40 mg SUBQ DAILY [facility] Last Admin: 11/24/20 08:20 Dose: 40 mg Documented by: Insulin Aspart (Insulin Aspart 300 Unit/3 Ml Pen) 5 unit SUBQ TIDWM [facility]; Protocol Last Admin: 11/24/20 12:01 Dose: 5 unit Documented by: Insulin Aspart (Insulin Aspart 300 Unit/3 Ml Pen) 3 - 11 unit SUBQ 0800,1200,1700,2100 [facility]; Protocol Last Admin: 11/24/20 12:03 Dose: 5 unit Documented by: Insulin Glargine (Insulin Glargine 300 Unit/3 Ml Pen) 30 unit SUBQ QPM [facility] Last Admin: 11/23/20 21:00 Dose: Not Given Documented by: Lisinopril (Lisinopril 5 Mg Tablet) 10 mg PO DAILY [facility] Last Admin: 11/24/20 08:29 Dose: 10 mg Documented by: Nystatin (Nystatin Cream 15 Gm Tube) 1 applic TOP BID [facility] Last Admin: 11/24/20 15:39 Dose: Not Given Documented by: Nystatin (Nystatin Powder 15 Gm) 1 applic TOP BID [facility] Last Admin: 11/24/20 10:25 Dose: 1 applic Documented by: Ondansetron HCl (Ondansetron Odt 4 Mg Tablet) 4 mg TL Q6HR PRN PRN Reason: Nausea / Vomiting Ondansetron HCl (Ondansetron 4 Mg/2 Ml Vial) 4 mg IVP Q6HR PRN PRN Reason: Nausea / Vomiting Oxycodone HCl (Oxycodone 5 Mg Tablet) 5 mg PO Q4HR PRN PRN Reason: Pain 5 to 7 Pantoprazole Sodium (Pantoprazole 40 Mg Tablet) 40 mg PO QDAC [facility] Last Admin: 11/24/20 07:33 Dose: 40 mg Documented by: Polyethylene Glycol (Polyethylene Glycol 3350 17 Gm Packet) 17 gm PO DAILY [facility] Last Admin: 11/24/20 08:21 Dose: 17 gm Documented by: Prochlorperazine Edisylate (Prochlorperazine 10 Mg/2 Ml Vial) 10 mg IVP Q6HR PRN PRN Reason: Nausea / Vomiting Sodium Chloride (Sodium Chloride Flush 0.9% 10 Ml Syringe) 10 ml IVP PRN PRN PRN Reason: NEEDED PER PROVIDER ORDERS Sodium Chloride (Sodium Chloride Flush 0.9% 10 Ml Syringe) 10 ml IVP 0100,0900,1700 [facility] Last Admin: 11/24/20 08:21 Dose: 10 ml Documented by: Aspirin 81 mg PO DAILY 07/09/17 Sertraline [Zoloft] 50 mg PO DAILY 11/24/20 Triamcinolone 0.1% Oint [Kenalog 0.1% Oint] 1 applic TOP BID PRN 11/24/20 Objective - Vital Signs/Intake & Output Reviewed Vital Signs: Yes Intake & Output: Intake & Output 11/21/20 11/22/20 11/23/20 11/24/20 23:59 23:59 23:59 23:59 Intake Total 3318.043 3299.46 Output Total 450 475 Balance 2868.043 2824.46 - Objective General Appearance: positive: No acute distress, Alert, Other (Pleasant, cooperative. She knows she is in a healthcare setting but does not know where exactly. Does not know the date.) Eyes Bilateral: positive: PERRL, EOMI ENT: positive: No signs of dehydration Neck: positive: No JVD. negative: Stiff neck Respiratory: positive: No respiratory distress. negative: Wheezes, Rales, Rhonchi Cardiovascular: positive: Regular rate & rhythm, Systolic murmur. negative: G allop/S4, Friction rub Abdomen: positive: Non-tender, No organomegaly, Nml bowel sounds, No distention Skin: positive: Warm, Dry, Other (No intertrigo underneath the breast, underneath her abdominal pannus) Extremities: positive: Full ROM, Pedal edema Neurologic/Psychiatric: positive: CN's nml (2-12), Disoriented to place, Disoriented to time. negative: Motor nml (When she stands up she needs a 2 person standby assist otherwise she has a tendency to try and fall backwards. Will follow commands about where to put her feet when I asked her to. At) - Lab Results Fish Bones: 11/24/20 09:43 11/24/20 09:43 Other Labs: Lab Results x24hrs 11/24/20 11/24/20 11/24/20 Range/Units 11:44 09:43 09:43 WBC 10.6 (4.8-10.8) x10^3/uL RBC 3.86 L (4.20-5.40) 10^6/uL Hgb 12.9 (12.0-16.0) g/dL Hct 35.7 L (37.0-47.0) % MCV 92.5 (81.0-99.0) fL MCH 33.4 H (27.0-31.0) pg MCHC 36.1 H (32.0-36.0) g/dL RDW 13.6 (12.0-15.0) % Plt Count 173 (130-450) 10^3/uL MPV 10.1 (7.9-10.8) fL Neut # (Auto) 8.4 H (1.5-6.6) 10^3/uL Lymph # (Auto) 1.3 L (1.5-3.5) 10^3/uL Scurry # (Auto) 0.7 (0.0-1.0) 10^3/uL Eos # (Auto) 0.1 (0.0-0.7) 10^3/uL Baso # (Auto) 0.0 (0.0-0.1) 10^3/uL Absolute Nucleated RBC 0.00 x10^3/uL Nucleated RBC % 0.0 /100WBC Sodium 138 (135-145) mmol/L Potassium 4.0 (3.5-5.0) mmol/L Chloride 113 H (101-111) mmol/L Carbon Dioxide 15 L (21-32) mmol/L Anion Gap 10.0 (6-13) BUN 22 H (6-20) mg/dL Creatinine 0.7 (0.4-1.0) mg/dL Estimated GFR (MDRD) 81 L (>89) Glucose 216 H (70-100) mg/dL POC Whole Bld Glucose 182 H (70 - 100) mg/dL Estimat Average Glucose (70-100) mg/dL Hemoglobin A1c % (4.27-6.07) % Calcium 8.5 (8.5-10.3) mg/dL Phosphorus (2.5-4.6) mg/dL Magnesium (1.7-2.8) mg/dL B-Natriuretic Peptide (5-100) pg/mL Urine Color Urine Clarity (CLEAR) Urine pH (5.0-7.5) PH Ur Specific Irwin (1.002-1.030) Urine Protein (NEGATIVE) mg/dL Urine Glucose (UA) (NEGATIVE) mg/dL Urine Ketones (NEGATIVE) mg/dL Urine Occult Blood (NEGATIVE) Urine Nitrite (NEGATIVE) Urine Bilirubin (NEGATIVE) Urine Urobilinogen (NORMAL) E.U./dL Ur Leukocyte Esterase (NEGATIVE) Urine RBC (0-5) /HPF Urine WBC (0-5) /HPF Ur Squamous Epith Cells (<= Few) Urine Bacteria (None Seen) /HPF Urine Culture Comments Nasal Adenovirus (PCR) Nasal B. parapertussis DNA (PCR) Nasal Coronavir 229E PCR Nasal Coronavir HKU1 PCR Nasal Coronavir NL63 PCR Nasal Coronavir OC43 PCR Nasal Enterovir/Rhinovir PCR Nasal Influenza B PCR Nasal Influenza A PCR Nasal Parainfluen 1 PCR Nasal Parainfluen 2 PCR Nasal Parainfluen 3 PCR Nasal Parainfluen 4 PCR Nasal RSV (PCR) Nasal B.pertussis DNA PCR Nasal C.pneumoniae (PCR) Esvin Human Metapneumo PCR Nasal M.pneumoniae (PCR) Nasal SARS-CoV-2 (PCR) 11/24/20 11/24/20 11/23/20 Range/Units 09:43 07:54 23:09 WBC (4.8-10.8) x10^3/uL RBC (4.20-5.40) 10^6/uL Hgb (12.0-16.0) g/dL Hct (37.0-47.0) % MCV (81.0-99.0) fL MCH (27.0-31.0) pg MCHC (32.0-36.0) g/dL RDW (12.0-15.0) % Plt Count (130-450) 10^3/uL MPV (7.9-10.8) fL Neut # (Auto) (1.5-6.6) 10^3/uL Lymph # (Auto) (1.5-3.5) 10^3/uL Scurry # (Auto) (0.0-1.0) 10^3/uL Eos # (Auto) (0.0-0.7) 10^3/uL Baso # (Auto) (0.0-0.1) 10^3/uL Absolute Nucleated RBC x10^3/uL Nucleated RBC % /100WBC Sodium (135-145) mmol/L Potassium (3.5-5.0) mmol/L Chloride (101-111) mmol/L Carbon Dioxide (21-32) mmol/L Anion Gap (6-13) BUN (6-20) mg/dL Creatinine (0.4-1.0) mg/dL Estimated GFR (MDRD) (>89) Glucose (70-100) mg/dL POC Whole Bld Glucose 151 H (70 - 100) mg/dL Estimat Average Glucose (70-100) mg/dL Hemoglobin A1c % (4.27-6.07) % Calcium (8.5-10.3) mg/dL Phosphorus (2.5-4.6) mg/dL Magnesium (1.7-2.8) mg/dL B-Natriuretic Peptide 69 (5-100) pg/mL Urine Color YELLOW Urine Clarity HAZY (CLEAR) Urine pH 5.5 (5.0-7.5) PH Ur Specific Irwin 1.025 (1.002-1.030) Urine Protein NEGATIVE (NEGATIVE) mg/dL Urine Glucose (UA) >=1000 H (NEGATIVE) mg/dL Urine Ketones >=80 H (NEGATIVE) mg/dL Urine Occult Blood SMALL H (NEGATIVE) Urine Nitrite NEGATIVE (NEGATIVE) Urine Bilirubin NEGATIVE (NEGATIVE) Urine Urobilinogen 0.2 (NORMAL) (NORMAL) E.U./dL Ur Leukocyte Esterase SMALL H (NEGATIVE) Urine RBC 6-10 H (0-5) /HPF Urine WBC >25 H (0-5) /HPF Ur Squamous Epith Cells MOD Squamous H (<= Few) Urine Bacteria Few (None Seen) /HPF Urine Culture Comments NOT INDICATED Nasal Adenovirus (PCR) Nasal B. parapertussis DNA (PCR) Nasal Coronavir 229E PCR Nasal Coronavir HKU1 PCR Nasal Coronavir NL63 PCR Nasal Coronavir OC43 PCR Nasal Enterovir/Rhinovir PCR Nasal Influenza B PCR Nasal Influenza A PCR Nasal Parainfluen 1 PCR Nasal Parainfluen 2 PCR Nasal Parainfluen 3 PCR Nasal Parainfluen 4 PCR Nasal RSV (PCR) Nasal B.pertussis DNA PCR Nasal C.pneumoniae (PCR) Esvin Human Metapneumo PCR Nasal M.pneumoniae (PCR) Nasal SARS-CoV-2 (PCR) 11/23/20 11/23/20 11/23/20 Range/Units 20:29 20:20 18:21 WBC (4.8-10.8) x10^3/uL RBC (4.20-5.40) 10^6/uL Hgb (12.0-16.0) g/dL Hct (37.0-47.0) % MCV (81.0-99.0) fL MCH (27.0-31.0) pg MCHC (32.0-36.0) g/dL RDW (12.0-15.0) % Plt Count (130-450) 10^3/uL MPV (7.9-10.8) fL Neut # (Auto) (1.5-6.6) 10^3/uL Lymph # (Auto) (1.5-3.5) 10^3/uL Scurry # (Auto) (0.0-1.0) 10^3/uL Eos # (Auto) (0.0-0.7) 10^3/uL Baso # (Auto) (0.0-0.1) 10^3/uL Absolute Nucleated RBC x10^3/uL Nucleated RBC % /100WBC Sodium 140 (135-145) mmol/L Potassium 4.0 (3.5-5.0) mmol/L Chloride 108 (101-111) mmol/L Carbon Dioxide 20 L (21-32) mmol/L Anion Gap 12.0 (6-13) BUN 31 H (6-20) mg/dL Creatinine 1.0 (0.4-1.0) mg/dL Estimated GFR (MDRD) 54 L (>89) Glucose 197 H (70-100) mg/dL POC Whole Bld Glucose 175 H 135 H (70 - 100) mg/dL Estimat Average Glucose (70-100) mg/dL Hemoglobin A1c % (4.27-6.07) % Calcium 8.9 (8.5-10.3) mg/dL Phosphorus 3.0 (2.5-4.6) mg/dL Magnesium 1.7 (1.7-2.8) mg/dL B-Natriuretic Peptide (5-100) pg/mL Urine Color Urine Clarity (CLEAR) Urine pH (5.0-7.5) PH Ur Specific Irwin (1.002-1.030) Urine Protein (NEGATIVE) mg/dL Urine Glucose (UA) (NEGATIVE) mg/dL Urine Ketones (NEGATIVE) mg/dL Urine Occult Blood (NEGATIVE) Urine Nitrite (NEGATIVE) Urine Bilirubin (NEGATIVE) Urine Urobilinogen (NORMAL) E.U./dL Ur Leukocyte Esterase (NEGATIVE) Urine RBC (0-5) /HPF Urine WBC (0-5) /HPF Ur Squamous Epith Cells (<= Few) Urine Bacteria (None Seen) /HPF Urine Culture Comments Nasal Adenovirus (PCR) Nasal B. parapertussis DNA (PCR) Nasal Coronavir 229E PCR Nasal Coronavir HKU1 PCR Nasal Coronavir NL63 PCR Nasal Coronavir OC43 PCR Nasal Enterovir/Rhinovir PCR Nasal Influenza B PCR Nasal Influenza A PCR Nasal Parainfluen 1 PCR Nasal Parainfluen 2 PCR Nasal Parainfluen 3 PCR Nasal Parainfluen 4 PCR Nasal RSV (PCR) Nasal B.pertussis DNA PCR Nasal C.pneumoniae (PCR) Esvin Human Metapneumo PCR Nasal M.pneumoniae (PCR) Nasal SARS-CoV-2 (PCR) 11/23/20 11/23/20 11/23/20 Range/Units 17:22 16:50 06:30 WBC (4.8-10.8) x10^3/uL RBC (4.20-5.40) 10^6/uL Hgb (12.0-16.0) g/dL Hct (37.0-47.0) % MCV (81.0-99.0) fL MCH (27.0-31.0) pg MCHC (32.0-36.0) g/dL RDW (12.0-15.0) % Plt Count (130-450) 10^3/uL MPV (7.9-10.8) fL Neut # (Auto) (1.5-6.6) 10^3/uL Lymph # (Auto) (1.5-3.5) 10^3/uL Scurry # (Auto) (0.0-1.0) 10^3/uL Eos # (Auto) (0.0-0.7) 10^3/uL Baso # (Auto) (0.0-0.1) 10^3/uL Absolute Nucleated RBC x10^3/uL Nucleated RBC % /100WBC Sodium (135-145) mmol/L Potassium (3.5-5.0) mmol/L Chloride (101-111) mmol/L Carbon Dioxide (21-32) mmol/L Anion Gap (6-13) BUN (6-20) mg/dL Creatinine (0.4-1.0) mg/dL Estimated GFR (MDRD) (>89) Glucose (70-100) mg/dL POC Whole Bld Glucose 137 H (70 - 100) mg/dL Estimat Average Glucose 258 H (70-100) mg/dL Hemoglobin A1c % 10.6 H (4.27-6.07) % Calcium (8.5-10.3) mg/dL Phosphorus (2.5-4.6) mg/dL Magnesium (1.7-2.8) mg/dL B-Natriuretic Peptide (5-100) pg/mL Urine Color Urine Clarity (CLEAR) Urine pH (5.0-7.5) PH Ur Specific Irwin (1.002-1.030) Urine Protein (NEGATIVE) mg/dL Urine Glucose (UA) (NEGATIVE) mg/dL Urine Ketones (NEGATIVE) mg/dL Urine Occult Blood (NEGATIVE) Urine Nitrite (NEGATIVE) Urine Bilirubin (NEGATIVE) Urine Urobilinogen (NORMAL) E.U./dL Ur Leukocyte Esterase (NEGATIVE) Urine RBC (0-5) /HPF Urine WBC (0-5) /HPF Ur Squamous Epith Cells (<= Few) Urine Bacteria (None Seen) /HPF Urine Culture Comments Nasal Adenovirus (PCR) NOT DETECTED Nasal B. parapertussis DNA (PCR) NOT DETECTED Nasal Coronavir 229E PCR NOT DETECTED Nasal Coronavir HKU1 PCR NOT DETECTED Nasal Coronavir NL63 PCR NOT DETECTED Nasal Coronavir OC43 PCR NOT DETECTED Nasal Enterovir/Rhinovir PCR NOT DETECTED Nasal Influenza B PCR NOT DETECTED Nasal Influenza A PCR NOT DETECTED Nasal Parainfluen 1 PCR NOT DETECTED Nasal Parainfluen 2 PCR NOT DETECTED Nasal Parainfluen 3 PCR NOT DETECTED Nasal Parainfluen 4 PCR NOT DETECTED Nasal RSV (PCR) NOT DETECTED Nasal B.pertussis DNA PCR NOT DETECTED Nasal C.pneumoniae (PCR) NOT DETECTED Esvin Human Metapneumo PCR NOT DETECTED Nasal M.pneumoniae (PCR) NOT DETECTED Nasal SARS-CoV-2 (PCR) NOT DETECTED Assessment/Plan - Problem List (1) DKA (diabetic ketoacidosis) Impression: Yesterday we looked at her for [place], UTI, pneumonia, any illness that would decompensate her glucose. None was found. She responded very promptly to insulin drip in the emergency room was able to come off the insulin drip and be admitted to [facility]. She is on 200 cc an hour of fluids. Back on her usual Lantus and short acting insulin before meals. This morning she has been 151, 182. Plan: Resolved DKA Continue Lantus 30 units and NovoLog 4 units before meals. Verify that her and son know how to give her insulin. The last time she was here they did not even have an intact glucometer. [facility] home health documents working with them extensively to get them to check her sugar regularly. Once she has had evaluation with physical therapy, this patient may be ready for discharge by tomorrow. Qualifiers: Diabetes mellitus type: type 2 (2) Dehydration resolved. Conclusion/Plan: On physical exam on admission she had dry oral mucosa. Baseline creatinine is 0.6. She presents with a creatinine of 1.3. It has been gradually improving in the emergency room so that by the time she gets to [facility] she is 1.0. This morning she is 0.7 Plan: stop IVF Avoid nephrotoxic agents (3) Acute kidney injury resolved Conclusion/Plan: Due to dehydration. See treatment as above. (4) Decreased mobility and endurance Conclusion/Plan: Multiple factors. This is an elderly lady who has degenerative disc disease in her back and has chronic leg pain as well as intratrochanteric bursitis history. She has aortic stenosis which probably causes dyspnea on exertion. She is demented and probably does not lend itself to exercise or dietary restrictions. As age has come up on her, all of these factors are against her. Nation yesterday she had severe No intertrigo underneath the breast pannus, abdominal pannus, intertriginous folds of groin and vulva. While she has bruising of the buttocks on pressure areas, there is no skin breakdown.Nystatin powder and cream ordered this morning. Physical therapy evaluation and treatment ordered. We will assess her again for resuming home health PT. I have expressed my concern to her son with regards to their ability to take care of her since she is such a handful. (5) Aortic stenosis Conclusion/Plan: Echo: Moderate concentric left ventricular hypertrophy. Ejection fraction 60 to 65%. Moderate to severely calcified aortic valve leaflets. Severe aortic stenosis with a peak/mean pressure gradient of 86 mmHg / 60 mmHg. Aortic valve area 0.56 cm. No aortic regurgitation. Thickened mitral valve. But no stenosis or regurgitation. Tricuspid valve normal. Normal right ventricular systolic pressure. As such, her aortic stenosis has worsened since the last time she had her echo done in 2018. I do not believe she is a candidate for a TAVR or open heart surgery. Ejection fraction is still maintained. She does not give me history of syncope from aortic stenosis but because of her dementia I do not know if I can trust her history completely. Qualifiers: Cardiac valve disease etiology: nonrheumatic Qualified Code(s): I35.0 - Nonrheumatic aortic (valve) stenosis (6) GERD (gastroesophageal reflux disease) Conclusion/Plan: resume PPI Qualifiers: Esophagitis bleeding: without hemorrhage (7) Hypertension Conclusion/Plan: resume lisinopril Qualifiers: Hypertension type: primary hypertension Qualified Code(s): I10 - Essential (primary) hypertension (8) Dementia Conclusion/Plan: she is assumed to have alzheimer's or vascular dementia. no work up in the past in PCP office. Plan; social work consult to identify home needs, to see if we can help son and daughter find right place for mom in the face of dad's objections. Qualifiers: Dementia type: Alzheimer's (9) Full code status Conclusion/Plan: Son states that he is never really discussed CODE STATUS with his mom. He does not even know if his dad has discussed it with mom. I explained that at this time, by default, she will be a full code. But I would ask that he, his sister, and dad to 10 a discussed her overall status. Her decline. How aggressive do they want us to be in the future especially if aortic stenosis becomes a problem.
[2020-11-24] MEDS: INSULIN GLARGINE 300 UNIT/3 ML PEN SUBQ SCH (21:00)
[2020-11-25 06:12] LABS: CALCIUM 8.8 mg/dL (8.5-10.3); CREATININE 0.7 mg/dL (0.4-1.0); POTASSIUM 3.9 mmol/L (3.5-5.0)
[2020-11-25] MEDS: SODIUM CHLORIDE FLUSH 0.9% 10 ML SYRINGE IVP SCH ×2 (06:15→08:35)
[2020-11-25] MEDS: PANTOPRAZOLE 40 MG TABLET PO SCH (06:21)
[2020-11-25 07:41] VITALS: BP 136/77
[2020-11-25] MEDS: INSULIN ASPART 300 UNIT/3 ML PEN SUBQ SCH ×4 (07:47→12:18)
[2020-11-25] MEDS: polyethylene glycoL 3350 17 GM PACKET PO SCH (08:34)
[2020-11-25] MEDS: NYSTATIN CREAM 15 GM TUBE TOP SCH (08:35)
[2020-11-25] MEDS: ENOXAPARIN 40 MG/0.4 ML SYRINGE SUBQ SCH (08:35)
[2020-11-25] MEDS: lisinopriL 5 MG TABLET PO SCH (08:35)
[2020-11-25] MEDS: NYSTATIN POWDER 15 GM TOP SCH (08:35)
--- NOTE | 2020-11-25 11:38 | Discharge Plan ---
Discharge Plan Problem Reviewed?: Yes Disposition: Home, Self Care Condition: Good Prescriptions: Nystatin Cream [Mycostatin Cream] 1 applic TOP BID #1 tu Nystatin [Nystop] 1 applic TOP BID #1 bottle Diet: Diabetic Activity Restrictions: Additional Comments (must use walker and cane) Shower Restrictions: No Driving Restrictions: Yes (cannot drive) Assistance Devices: Walker, Cane Health Concerns: She was brought in after multiple falls. She has been sleeping more a more during the day and being up at night. Son describes her is noncompliant with diet and occasionally not getting her insulin as instructed. This resulted in severe dehydration, DKA. The patient responded very nicely to IV hydration and resumption of her insulin. The folds of her body are infected with yeast. She is also at risk for developing decubiti of her buttocks because she sits too long and is sedentary. Dementia is moderate. The patient cannot take care of her self. She should not be allowed to give herself her own medications, ever. She must rely on caregivers to give her her medications and bathe her. Plan of Treatment: 1. To return to home with the care of her . It must be stressed that her must be the one to give her her medications or her son. The patient should not be allowed to ever give herself her own medications. 2. She will be sent home with home health social work, physical therapy, occupational therapy, bath aide to improve her ability to walk, control her sugars. And take care of the infections on her skin. 3. She should see her primary care provider, Dr. Ortiz, in the next 1 to 2 weeks. 4. Palliative care consultation will be ordered. The patient has valvular heart disease that puts her with a shortened life span on the basis of that valvular heart disease. It would be a good time for son, daughter, to plan for the future and the expected deterioration. Care Goals: To remain at home for as long as possible with her taking care of her. Assessment: Patient has dementia. She is unable to follow care plan very well. Goals discussed with son. Follow-Up Care: Home Health - RN, Home Health - PT, Home Health - OT No Smoking: If you smoke, Please STOP! Call for help. Follow-up with: Laya Lutz DO [Primary Care Provider] -
--- NOTE | 2020-11-25 18:16 | DISCHARGE SUMMARY ---
"Discharge Summary Admit Date: 11/23/20 Discharge Date: 11/25/20 Discharging Provider: Christiana Sahu MD Primary Care Provider: Laya Lutz MD Code Status: Attempt Resuscitation Condition at Discharge: Good Discharge Disposition: 01 Home, Self Care - DIAGNOSES Discharge Diagnoses with Status of Each Condition: 1. Diabetic ketoacidosis type II, resolved 2 dehydration 3. Acute kidney injury 4. Decrease strength, endurance, mobility 5. Severe aortic stenosis 6. GERD 7. Hypertension 8. Dementia - HPI History of Present Illness: This is a 75-year-old female who has been declining for close to 2 years with regards to memory and ability to take care of her self. For example, she used to go to the grocery store with her and son. But after falling to many times in public, her no longer takes her out in public. He is afraid of her falling. She is fallen a few times at home. She is supposed to be walking with a cane or a walker and does sometimes but sometimes does not. Last admiss ion to the hospital in July of this year, her son and are supposed to be giving her her medications. She is not felt to be cognitively aware enough to give herself her own medicines. With her goals met of being independent with the use of an assistive device. With that admission she had an unwitnessed fall in her living room around July 16 or July 17. She remained conscious and crawled on th e floor and attempt to get her but he was asleep. Her woke up the next morning and found her on the floor and called EMS. It is unclear where her son was. Found to be severely dehydrated, DKA. After hydration and control of her glucose, she was sent home with home health physical therapy, nurse aide. She was seen in office followup 07/29/20. She was discharged from home health on September 23. Mobility goals were met and that the patient was able to stand to transfer with cues required for hand and feet placement. She also had to be cued for break management on her walker. She is able to walk 35 feet with standby assist and a four-wheel walker. Needed constant cues. Some of the cues were with regards to balance, some work with regards to keeping the walker close to her body, and some were required to be able to maintain balance with turning. She required a lot of extended seated rest breaks between activities due to generalized weakness and decreased functional activity tolerance. At the beginning of the home health care, nursing stated stated that the patient did have pressure ulcers to bilateral buttocks as well as uncontrolled diabetes. Patient was unable to use her glucometer due to cognitive deficit. She struggled with the lancet device. It was recommended that her caregivers take over completely. By discharge her decubitus ulcers had improved and they were closing up and healing. She was able to test her glucose level without verbal cue. There were no falls noted during that time. It was stressed to her that she needed to follow-up with her primary care provider on a regular basis. She has not done so. She was last physically seen at the walk-in clinic on August 20 for intermittent itchy vagina for a few weeks. A urinalysis was done. There is no physical exam of her labia or vagina noted. She was put on Diflucan. Has moderate aortic stenosis as well as chronic diastolic heart failure with venous stasis dermatitis. She was seen by her air conditioning service technician in 2018. She is supposed to be seen every year with a follow-up echo but has not been able to do so. From the son, he gives a history of her sleeping more and more. No specific fevers, cough, congestion. She is incontinent of urine but she always is. In the last two weeks sleeps all day and wanders in house at night. Son and can't necessarily give her her meds because of that. She is also noncompliant with diet and she is eating things like cans of chili w beans for dinner when they aren't around. She fell several times yesterday as she lost her balance. late last night or early, early this morning, she was found down again. Had coffee-ground emesis after they got her up. Had 3 episodes of brown emesis. stayed up all night with her and this am, decided to bring her in. Brought to the emergency room via POV where temperature was 36.9. Heart rate 109. Blood pressure 137/73. Respirations 14 and 100% on room air. She was a confused elderly female who sodium was 134, carbon dioxide 11, anion gap 27, BUN 32, creatinine 1.3. Glucose 626. Lactic acid 1.7. White cell count was 18.2, hemoglobin 15.8. Urinalysis had glucosuria and ketonuria but was not infected. Moderate serum ketones. Venous blood gas was 7.2 with a base excess of -14.4. 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 Troponin was not done. She was not able to give a history and was clearly with a cognitive deficit. She was identified as being in DKA. However we did not have any ICU beds available. The patient was kept in the emergency room on an insulin drip, and she has now transitioned to Lantus, IV fluids, and a low carb diet and we are admitting her to MedSurg. Troponins are still pending. Chest x-ray was not done. - CONSULTS | PROCEDURES Procedures: 1. IV insulin drip. 2. Echocardiogram showing progression of valvular heart disease. Echo in 2018 had moderate aortic stenosis with 3.7 m per 6-second max velocity, peak/mean pressures 55 mmHg versus 34 mmHg. With this admission peak/mean pressure gradient 88 mmHg / 60 mmHg. Aortic valve area 0.56 cm. Ejection fraction still maintained at 65 to 70%. - HOSPITAL COURSE Hospital Course: Patient was started an insulin drip in the emergency room. Able to come off the insulin drip since she was a boarder and we had no ICU beds. We then transitioned her to MedSurg status from the ER without the insulin drip. Continued IVF but low rate so as to avoid acute CHF. Transitioned her to her Lantus and sliding scale insulin. She was initially quite encephalopathic, sedated with a dry mouth. After hydration and control of her sugars she was much more alert, changes of dehydration resolved, and she was cooperative, pleasant. She was eating 100% of her meals. She is still very forgetful and needs multiple prompts for correct maneuvers for sitting, standing or using her walker. In reviewing her case with her son, it is clear that dad has become overwhelmed in taking care of his . But he is resistant to having her placed in a facility for care. As such the current plan is for her to return to home with care from her and son. Home health will be ordered again for bath aide, half-way intervention, PT, OT. They are considering private duty hire to help take care of her at home. Social work has been carefully reviewing the case and has become involved yet again in trying to help this family keep her at home for as long as possible. Suggestions are being made that maybe she would be a candidate for palliative care. With the severe aortic stenosis progressing, the patient would not be a candidate for TAVR or open heart procedure. I do not think that she is having syncope or falls because of this yet. Her falls are all described as mechanical and witnessed for the most part. At discharge she is a 5 foot 4 inch, 77 kg female who appears morbidly overweight. Oriented only person. Knows that she is in a medical facility but she thinks she is at the [facility]. Temperature is 36.6. Heart rate 85. Blood pressure 136/77. Respirations 18 and 100% on room air. Neck is supple. Diminished breath sounds at the bases without any crackles rhonchi or wheezing. She has a regular rate and rhythm with a systolic ejection murmur loudest in the right upper sternal border. The abdomen is huge, obese, nontender. Skin exam shows her to have copious amounts of No intertrigo underneath both breast pannus, in the in periumbilical area, intertriginous folds of the groin, and underneath the pannus of her belly. She also has reddening and thickness of the skin of her buttocks where she states for hours being immobile. Legs are edematous. She has abrasions on her skin/knees where she fell at home. She has abrasions on the anterior shins and scaling from chronic venous stasis dermatitis. She is discharged with Nystop powder and nystatin cream. I will be asking for palliative care consult and if her primary care provider could please order that. I have already taken the liberty of speaking to Mary Lacy from the palliative care team. Greater than 30 minutes was spent coordinating discharge. - ALLERGIES Allergies/Adverse Reactions: Allergies Allergy/AdvReac Type Severity Reaction Status Date / Time No Known Drug Allergies Allergy Verified 07/17/20 13:55 - MEDICATIONS Home Medications: Ambulatory Orders Medication Instructions Recorded Confirmed Aspirin 81 mg PO DAILY 07/09/17 11/23/20 Insulin Aspart [NovoLOG] 4 unit SUBQ TIDWM #2 each 07/21/20 11/23/20 Insulin Glargine [Lantus Solostar] 30 unit SQ HS #2 each 07/21/20 11/23/20 Pantoprazole [Protonix] 40 mg PO QDAC #30 tablet 07/21/20 11/23/20 lisinopriL [Lisinopril] 10 mg PO DAILY #30 tablet 07/21/20 11/23/20 Sertraline [Zoloft] 50 mg PO DAILY 11/24/20 11/24/20 Triamcinolone 0.1% Oint [Kenalog 1 applic TOP BID PRN 11/24/20 11/24/20 0.1% Oint] Nystatin Cream [Mycostatin Cream] 1 applic TOP BID #1 tu 11/25/20 Nystatin [Nystop] 1 applic TOP BID #1 bottle 11/25/20 - LABS Result Diagrams: 11/24/20 09:43 11/25/20 04:52"
== END 2020-11-25 16:21 | disposition home or self-care (01) | DRG 638 ==
LOC: ED 06:22 → MS3 15:43
PROVIDERS: ADMIT Specialist; ATTEND Specialist
DX: E11.10 Type 2 diabetes mellitus with ketoacidosis without coma (principal); N17.9 Acute kidney failure, unspecified; I50.32 Chronic diastolic (congestive) heart failure; I08.0 Rheumatic disorders of both mitral and aortic valves; I11.0 Hypertensive heart disease with heart failure; Z20.822 Contact with and (suspected) exposure to COVID-19; E86.0 Dehydration; E11.42 Type 2 diabetes mellitus with diabetic polyneuropathy; E11.51 Type 2 diabetes mellitus with diabetic peripheral angiopathy without gangrene; I70.202 Unspecified atherosclerosis of native arteries of extremities, left leg; I70.201 Unspecified atherosclerosis of native arteries of extremities, right leg; B37.2 Candidiasis of skin and nail; F03.90 Unspecified dementia, unspecified severity, without behavioral disturbance, psychotic disturbance, mood disturbance, and anxiety; E78.00 Pure hypercholesterolemia, unspecified; I25.10 Atherosclerotic heart disease of native coronary artery without angina pectoris; K21.9 Gastro-esophageal reflux disease without esophagitis; Z74.09 Other reduced mobility; J45.909 Unspecified asthma, uncomplicated; G47.33 Obstructive sleep apnea (adult) (pediatric); E66.01 Morbid (severe) obesity due to excess calories; Z68.29 Body mass index [BMI] 29.0-29.9, adult; R60.0 Localized edema; R32 Unspecified urinary incontinence; S80.212A Abrasion, left knee, initial encounter; S80.211A Abrasion, right knee, initial encounter; W19.XXXA Unspecified fall, initial encounter; Y92.009 Unspecified place in unspecified non-institutional (private) residence as the place of occurrence of the external cause; M79.605 Pain in left leg; M79.604 Pain in right leg; T38.3X6A Underdosing of insulin and oral hypoglycemic [antidiabetic] drugs, initial encounter; R68.89 Other general symptoms and signs; Z91.19 Patient's noncompliance with other medical treatment and regimen; Z91.81 History of falling; Z79.82 Long term (current) use of aspirin; Z79.4 Long term (current) use of insulin; Z79.899 Other long term (current) drug therapy
CPT/HCPCS: 0202U; 36415; 80048; 80053; 81001; 81003; 82009; 82803; 83036; 83605; 83690; 83735; 83880; 84100; 84484; 85025; 85610; 85730; 87086; 93005; 93306; 96361; 96365; 96375; 99284

== ENCOUNTER 2021-03-31 08:00 | Outpatient (CLI) | payer MEDICARE, OTHER | END 2021-03-31 23:59 | LOC: LAB.N 08:00 | PROVIDERS: ATTEND Registered Nurse | DX: R05.9 Cough, unspecified (principal); R11.0 Nausea; Z20.822 Contact with and (suspected) exposure to COVID-19 ==

== ENCOUNTER 2021-03-31 14:39 | Emergency (ER) | payer MEDICARE, OTHER ==
[2021-03-31 15:16] LABS: BASOPHILS # (AUTO) 0.1 10^3/uL (0.0-0.1); BASOPHILS % (AUTO) 0.3 %; EOSINOPHILS % (AUTO) 0.1 %; HCT - HEMATOCRIT 44.7 % (37.0-47.0); HGB - HEMOGLOBIN 16.5 g/dL (12.0-16.0); LYMPHOCYTES # (AUTO) 0.6 10^3/uL (1.5-3.5); LYMPHOCYTES % (AUTO) 3.9 %; MEAN CORPUSCULAR HEMOGLOBIN 33.4 pg (27.0-31.0); MEAN CORPUSCULAR HGB CONC 36.9 g/dL (32.0-36.0); MEAN CORPUSCULAR VOLUME 90.5 fL (81.0-99.0); MEAN PLATELET VOLUME 10.4 fL (7.9-10.8); MONOCYTES # (AUTO) 0.6 10^3/uL (0.0-1.0); NEUTROPHILS # (AUTO) 14.1 10^3/uL (1.5-6.6); NEUTROPHILS % (AUTO) 91.3 %; PLT - PLATELET COUNT 205 10^3/uL (130-450); RED BLOOD COUNT 4.94 10^6/uL (4.20-5.40); RED CELL DISTRIBUTION WIDTH 12.9 % (12.0-15.0); WHITE BLOOD COUNT 15.4 x10^3/uL (4.8-10.8)
[2021-03-31 15:42] LABS: ALBUMIN 3.9 g/dL (3.2-5.5); ALBUMIN/GLOBULIN RATIO 1.3 (1.0-2.2); ALKALINE PHOSPHATASE 67 IU/L (42-121); ALT ALANINE AMINOTRANSFERASE < 10 IU/L (10-60); AST ASPARTATE AMINOTRANSFERASE 10 IU/L (10-42); BILIRUBIN,TOTAL 2.7 mg/dL (0.2-1.0); BUN - BLOOD UREA NITROGEN 20 mg/dL (6-20); CARBON DIOXIDE - CO2 20 mmol/L (21-32); CHLORIDE 98 mmol/L (101-111); GFR - MDRD 54 (>89); GLUCOSE 373 mg/dL (70-100); LIPASE 50 U/L (22-51); SODIUM 137 mmol/L (135-145); TOTAL PROTEIN 6.8 g/dL (6.7-8.2)
[2021-03-31] MEDS ORDERED: SODIUM CHLORIDE 0.9% 1,000 ML IV STA ×2 (15:51→19:01)
[2021-03-31] MEDS ORDERED: iohexoL-300 100 ML VIAL ONE (17:23)
[2021-03-31] MEDS ORDERED: BUFFERED LIDOCAINE 10 ML SYRINGE IU ONE (17:32)
[2021-03-31] MEDS ORDERED: LIDOCAINE-MPF 2% 5 ML VIAL ONE (17:41)
--- NOTE | 2021-03-31 18:11 | ANESTHESIA PROCEDURE NOTE ---
Height and Weight: Height 5 ft 4 in Weight (kg) 74.389 kg Body Mass Index 28.1 Vital Signs: Temp Pulse Resp BP Pulse Ox 36.5 C 98 16 141/67 H 100 03/31/21 14:45 03/31/21 14:45 03/31/21 14:45 03/31/21 14:45 03/31/21 14:45 Allergies No Known Drug Allergies Allergy (Verified 03/31/21 14:48) Procedure Notes: Called to ER for difficult IV placement. Multiple attempts by ER staff made prior to my arrival. Attempted left AC, Right Brachial vein, Right EJ without success. A 20G long catheter was placed in the Right IJ after localizing the skin with 1ml of 2% lidocaine. Ultrasound was used to visualize the vein and direct the catheter. Patient tolerated well and IV aspirated blood and flushed with ease.
--- NOTE | 2021-03-31 18:57 | ED Physician Documentation ---
History of Present Illness - Stated complaint Stated Complaint: N/V ABD PX - Chief complaint Chief Complaint: Abd Pain - History obtained from History obtained from: Patient - Additonal information Additional information: Patient is brought to the emergency department by her family for chief complaint of vomiting for the last month. The patient has not wanted to eat much during that time and has had a lot of struggles with vomiting. She is intermittently able to hold food and fluid down, but has been chronically nauseated. The patient states that over the last week she is just felt weak and Dehydrated. She does have a primary doctor but it is not clear if she has seen the doctor since this illness began. No fevers or chills. No abdominal pain. No other complaints at this time. Review of Systems Ten Systems: 10 systems reviewed and negative Constitutional: reports: Fatigue Eyes: reports: Reviewed and negative Ears: reports: Reviewed and negative Nose: reports: Reviewed and negative Throat: reports: Reviewed and negative Cardiac: reports: Reviewed and negative Respiratory: reports: Reviewed and negative GI: reports: Nausea, Vomiting : reports: Reviewed and negative Skin: reports: Reviewed and negative Musculoskeletal: reports: Reviewed and negative Neurologic: reports: Reviewed and negative Psychiatric: reports: Reviewed and negative Endocrine: reports: Reviewed and negative Immunocompromised: reports: Reviewed and negative PD PAST MEDICAL HISTORY - Past Medical History Past Medical History: Yes Cardiovascular: Congestive heart failure, Hypertension, High cholesterol, Coronary artery disease, Peripheral Vascular Disease, Valve disorder, Other Respiratory: Asthma, Sleep apnea Neuro: Dementia, Peripheral neuropathy Endocrine/Autoimmune: Type 2 diabetes, Other GI: GERD, Colon polyps, Cholelithiasis BEAD WIRE INSULATOR: Ovarian cancer, Other : Kidney stones HEENT: Other Psych: Depression, Anxiety Musculoskeletal: Osteoarthritis, Osteopenia, Chronic back pain, Other Derm: Other - Past Surgical History Past Surgical History: Yes General: Cholecystectomy, Colonoscopy /BEAD WIRE INSULATOR: Hysterectomy, Oophrectomy Derm: Other - Present Medications Home Medications: Ambulatory Orders Medication Instructions Recorded Confirmed Aspirin 81 mg PO DAILY 07/09/17 02/28/21 Pantoprazole [Protonix] 40 mg PO QDAC #30 tablet 07/21/20 02/28/21 Sertraline [Zoloft] 50 mg PO DAILY 11/24/20 02/28/21 Nystatin Cream [Mycostatin Cream] 1 applic TOP BID #1 tu 11/25/20 02/28/21 Nystatin [Nystop] 1 applic TOP BID #1 bottle 11/25/20 02/28/21 Insulin Aspart [NovoLOG] 12 unit SUBQ TIDWM 02/28/21 02/28/21 Insulin Glargine [Lantus Solostar] 40 unit SQ HS 02/28/21 02/28/21 Lisinopril [Zestril] 10 mg PO DAILY 02/28/21 02/28/21 - Allergies Allergies/Adverse Reactions: Allergies Allergy/AdvReac Type Severity Reaction Status Date / Time No Known Drug Allergies Allergy Verified 03/31/21 14:48 - Social History Does the pt smoke?: No Smoking Status: Never smoker Does the pt drink ETOH?: No Does the pt have substance abuse?: No - Immunizations Immunizations are current?: Yes - POLST Patient has POLST: No POLST Status: Full Code PD ED PE NORMAL - Vitals Vital signs reviewed: Yes - General General: No acute distress, Well developed/nourished, Other (Alert, answers questions appropriately..) - HEENT HEENT: Atraumatic, PERRL, EOMI - Neck Neck: Supple, no meningeal sign - Cardiac Cardiac: RRR, No murmur - Respiratory Respiratory: No respiratory distress, Clear bilaterally - Abdomen Abdomen: Soft, Non tender, Non distended - Derm Derm: Normal color, No rash, Other (Cold hands) - Extremities Extremities: No deformity, No edema - Neuro Neuro: Alert and oriented X 3 (Patient is alert and answers questions appropriately. No gross deficits noted.), dry cure worker 2-12 intact, Normal speech - Psych Psych: Normal mood, Normal affect Results - Vitals Vitals: Vital Signs - 24 hr 03/31/21 03/31/21 14:45 18:44 Temperature 36.5 C Heart Rate 98 87 Respiratory 16 16 Rate Blood Pressure 141/67 H 155/76 H O2 Saturation 100 99 Oxygen O2 Source Room air - Labs Labs: Laboratory Tests 03/31/21 03/31/21 03/31/21 15:07 15:07 15:07 WBC 15.4 H RBC 4.94 Hgb 16.5 H Hct 44.7 MCV 90.5 MCH 33.4 H MCHC 36.9 H RDW 12.9 Plt Count 205 MPV 10.4 Neut # (Auto) 14.1 H Lymph # (Auto) 0.6 L Ciales # (Auto) 0.6 Eos # (Auto) 0.0 Baso # (Auto) 0.1 Absolute Nucleated RBC 0.00 Nucleated RBC % 0.0 Sodium 137 Potassium 4.0 Chloride 98 L Carbon Dioxide 20 L Anion Gap 19.0 H BUN 20 Creatinine 1.0 Estimated GFR (MDRD) 54 L Glucose 373 H POC Whole Bld Glucose Lactic Acid 2.1 Calcium 10.0 Total Bilirubin 2.7 H AST 10 ALT < 10 L Alkaline Phosphatase 67 Total Protein 6.8 Albumin 3.9 Globulin 2.9 Albumin/Globulin Ratio 1.3 Lipase 50 Serum Ketones 03/31/21 03/31/21 15:07 15:14 WBC RBC Hgb Hct MCV MCH MCHC RDW Plt Count MPV Neut # (Auto) Lymph # (Auto) Ciales # (Auto) Eos # (Auto) Baso # (Auto) Absolute Nucleated RBC Nucleated RBC % Sodium Potassium Chloride Carbon Dioxide Anion Gap BUN Creatinine Estimated GFR (MDRD) Glucose POC Whole Bld Glucose 347 H Lactic Acid Calcium Total Bilirubin AST ALT Alkaline Phosphatase Total Protein Albumin Globulin Albumin/Globulin Ratio Lipase Serum Ketones SMALL H PD MEDICAL DECISION MAKING - ED course Complexity details: reviewed results, re-evaluated patient, considered differential, d/w patient ED course: The patient was worked up with laboratory studies, which showed a moderately elevated white blood cell count of 15,000. She had extraordinarily difficult peripheral access, and although the original plan was not to place a central venous catheter, even anesthesia could not get a peripheral line with ultrasound, and so ultimately, central venous catheter was placed. The patient at this time is pending a urinalysis, she has not been able to urinate for us yet, and is also pending final interpretation of her CT scan of the abdomen and pelvis. She is in the process of receiving a 2 L bolus point and normal saline. Once all of this is done, she will be reevaluated to determine whether she needs inpatient or outpatient management. Patient is signed out to the oncoming emergency physician Dr. Kelley pending this.
--- NOTE | 2021-03-31 18:59 | CT Report ---
PROCEDURE: Abdomen/Pelvis W INDICATIONS: vomiting, low abdominal pain x 1 month CONTRAST: IV CONTRAST: Isovue 300 ml: 100 PO CONTRAST: *NO PO CONTRAST TECHNIQUE: After the administration of intravenouscontrast, 5 mm thick sections acquired from the diaphragms to the symphysis. 5 mm thick coronal and sagittal reformats were acquired. For radiation dose reductio n, the following was used: automated exposure control, adjustment of mA and/or kV according to patie nt size. COMPARISON: None. FINDINGS: Image quality: Excellent. ABDOMEN: Lung bases: There is mild dependent atelectasis. Heart size is normal. There is a moderate-sized hiat al hernia. Solid organs: Evaluation of the liver demonstrates no focal hepatic lesions. Gallbladder is surgical ly absent. Biliary system is non dilated. The spleen is normal in size. Pancreas enhances normally w ithout peripancreatic fat stranding or fluid collections. There is a small left adrenal nodule measu ring up to 1.0 cm. Kidneys demonstrate no hydronephrosis. Peritoneum and bowel: Small bowel loops demonstrate normal wall thickness and caliber. The appendix i s normal in appearance. There are segments of mild wall thickening compatible with mild colitis. Doucette mary diverticulosis is demonstrated throughout the colon without acute diverticulitis. No free fluid o r air. Nodes and vessels: No retroperitoneal or mesenteric adenopathy by size criteria. Aorta and inferior vena cava are normal in size. Miscellaneous: There are postsurgical changes within the ventral abdominal wall. PELVIS: Genitourinary: Bladder wall thickness is normal. The uterus is surgically absent. Miscellaneous: No inguinal hernias or adenopathy. Bones: No suspicious bony lesions. No vertebral body compression fractures. IMPRESSION: 1. Multiple segments of mild colonic wall thickening suggestive of a mild infectious or inflammatory colitis. 2. Colonic diverticulosis without acute diverticulitis. 3. Moderate hiatal hernia. 4. Small indeterminate left adrenal nodule measuring up to 1.0 cm. If clinically indicated, further c haracterization may be obtained with an adrenal protocol MRI or CT. Reviewed by: Ambrosio Ernst MD on 03/31/2021 6:57 PM PST Approved by: Ambrosio Ernst MD on 03/31/2021 6:57 PM PST Station ID: [id number]
[2021-03-31] MEDS ORDERED: iohexoL-300 100 ML VIAL IVP ONE (20:07)
[2021-03-31 23:13] LABS: BILIRUBIN,URINE NEGATIVE (NEGATIVE); CLARITY,URINE CLEAR (CLEAR); GLUCOSE, URINE (UA) 500 mg/dL (NEGATIVE); KETONES,URINE (UA) >=80 mg/dL (NEGATIVE); LEUKOCYTE ESTERASE, URINE NEGATIVE (NEGATIVE); NITRITE,URINE NEGATIVE (NEGATIVE); OCCULT BLOOD,URINE TRACE-INTA (NEGATIVE); PH,URINE 5.5 PH (5.0-7.5); PROTEIN,URINE NEGATIVE (NEGATIVE); UROBILINOGEN,URINE 0.2 (NORMAL) E.U./dL (NORMAL)
[2021-03-31] MEDS ORDERED: ONDANSETRON ODT 4 MG TABLET TL STA (23:47)
[2021-04-01 00:03] VITALS: BP 154/74
--- NOTE | 2021-04-01 00:23 | ED Physician Documentation ---
ED Addendum - Addendum Addendum: 04/01/21 00:18 Received sign out from Dr. Saundesr at end of her shift .Patient is here for nausea, lightheadedness/dizziness with standing, vague abdominal discomfort. Her blood tests have no concerning findings (hyperglycemia and small ketonemia noted for which she is given IV fluids but based on the [id number] nature of her problems is likely at most a small contributing factors rather than causative). An incidental note of mild colitis is found on CT. When I reevaluate patient, she denies any recent diarrhea, has not noted any blood in stool or tarry stool, and describes abdominal discomfort that has been episodic over weeks/months and without worsening or acute component. She is entirely nontender on my abdominal exam. Results d/w patient. She is given TL zofran, as she has some nausea prior to discharge (nausea is one of her more chronic/ongoing problems) and rx for ondansetron transmitted to [facility]. Patient says she will pursue outpatient follow up but understands she should come back if she develops worsening symptoms or new concerning signs/symptoms, the latter of which I specifically noted for her (such as fever, distinctly new/worse abd. pain, any blood in stool including dark tarry stool)
--- NOTE | 2021-04-30 05:46 | ED Physician Documentation ---
ED Addendum - Addendum Addendum: 04/30/21 05:45 Final impression: colitis, hyperglycemia, vomiting, diarrhea
== END 2021-04-01 00:17 | disposition home or self-care (01) ==
LOC: ED 14:39
DX: K52.9 Noninfective gastroenteritis and colitis, unspecified (principal); R11.2 Nausea with vomiting, unspecified; R73.9 Hyperglycemia, unspecified; I10 Essential (primary) hypertension; R05.9 Cough, unspecified; R11.0 Nausea; Z20.822 Contact with and (suspected) exposure to COVID-19
CPT/HCPCS: 36415; 74177; 80053; 81003; 82009; 83605; 83690; 85025; 96360; 96361; 99283; 99284; Q0162; Q9967; U0004; 81001; 87086

== ENCOUNTER 2021-04-15 14:17 | Outpatient (CLI) | payer MEDICARE, OTHER ==
[2021-04-15 18:27] LABS: BASOPHILS % (AUTO) 0.3 %; EOSINOPHILS # (AUTO) 0.3 10^3/uL (0.0-0.7); EOSINOPHILS % (AUTO) 3.8 %; HCT - HEMATOCRIT 39.7 % (37.0-47.0); HGB - HEMOGLOBIN 14.4 g/dL (12.0-16.0); LYMPHOCYTES # (AUTO) 1.2 10^3/uL (1.5-3.5); LYMPHOCYTES % (AUTO) 17.4 %; MEAN CORPUSCULAR HEMOGLOBIN 33.1 pg (27.0-31.0); MEAN CORPUSCULAR HGB CONC 36.3 g/dL (32.0-36.0); MEAN CORPUSCULAR VOLUME 91.3 fL (81.0-99.0); MEAN PLATELET VOLUME 10.2 fL (7.9-10.8); MONOCYTES # (AUTO) 0.5 10^3/uL (0.0-1.0); MONOCYTES % (AUTO) 7.2 %; NEUTROPHILS # (AUTO) 4.8 10^3/uL (1.5-6.6); PLT - PLATELET COUNT 197 10^3/uL (130-450); RED BLOOD COUNT 4.35 10^6/uL (4.20-5.40); RED CELL DISTRIBUTION WIDTH 13.4 % (12.0-15.0); WHITE BLOOD COUNT 6.8 x10^3/uL (4.8-10.8)
[2021-04-15 18:43] LABS: ALBUMIN 3.4 g/dL (3.2-5.5); ALBUMIN/GLOBULIN RATIO 1.1 (1.0-2.2); ALKALINE PHOSPHATASE 71 IU/L (42-121); ALT ALANINE AMINOTRANSFERASE 10 IU/L (10-60); AST ASPARTATE AMINOTRANSFERASE 13 IU/L (10-42); BILIRUBIN,TOTAL 1.6 mg/dL (0.2-1.0); BUN - BLOOD UREA NITROGEN 8 mg/dL (6-20); CALCIUM 9.2 mg/dL (8.5-10.3); CARBON DIOXIDE - CO2 27 mmol/L (21-32); CHLORIDE 98 mmol/L (101-111); CHOL/HDL RATIO 5.2 (<4.4); CHOLESTEROL 218 mg/dL; CREATININE 0.7 mg/dL (0.4-1.0); GFR - MDRD 81 (>89); GLUCOSE 322 mg/dL (70-100); HDL CHOLESTEROL 42 mg/dL; LDL CHOLESTEROL,CALCULATED 136 mg/dL; LDL/HDL RATIO 3.2 (<4.4); POTASSIUM 3.3 mmol/L (3.5-5.0); SODIUM 137 mmol/L (135-145); TOTAL PROTEIN 6.4 g/dL (6.7-8.2); TRIGLYCERIDES 199 mg/dL; VLDL CHOLESTEROL 40 mg/dL
[2021-04-15 18:47] LABS: CREATININE,URINE 147.6 mg/dL; MICROALBUM/CREATININE RATIO,UR 72.5 ug/mg (<30.0); MICROALBUMIN,URINE 10.7 mg/dL (0-300.0)
[2021-04-15 21:18] LABS: ESTIMATED AVERAGE GLUCOSE 194 mg/dL (70-100); HEMOGLOBIN A1c% 8.4 % (4.27-6.07)
== END 2021-04-15 14:18 | disposition home or self-care (01) ==
LOC: LAB.N 14:17
PROVIDERS: ATTEND Family Medicine
DX: E11.8 Type 2 diabetes mellitus with unspecified complications (principal)
CPT/HCPCS: 36415; 80053; 80061; 82043; 82570; 83036; 83721; 85025

== ENCOUNTER 2021-04-20 21:00 | Outpatient (CLI) | payer MEDICARE, OTHER | END 2021-04-20 21:01 | disposition critical access hospital (66) | LOC: EMS 21:00 | DX: R22.0 Localized swelling, mass and lump, head (principal); M25.551 Pain in right hip; S61.501A Unspecified open wound of right wrist, initial encounter; W18.39XA Other fall on same level, initial encounter; Y93.01 Activity, walking, marching and hiking; Y92.009 Unspecified place in unspecified non-institutional (private) residence as the place of occurrence of the external cause; R73.9 Hyperglycemia, unspecified; R03.0 Elevated blood-pressure reading, without diagnosis of hypertension | CPT/HCPCS: A0425; A0427 ==

== ENCOUNTER 2021-04-20 21:17 | Emergency (ER) | payer MEDICARE, OTHER ==
--- NOTE | 2021-04-20 22:58 | ED Physician Documentation ---
History of Present Illness - Stated complaint Stated Complaint: GLF, DIZZY - Chief complaint Chief Complaint: Trauma Ext - History obtained from History obtained from: Patient - Additonal information Additional information: 76yF not on AC presents s/p lightheaded spell and subsequent fall with +HT no loc tonight. patient c/o nausea and dizziness, denies cp, soa. she does also have significant sudden onset constant severe aching pain to R hip, worse with movement. denies other injury. Review of Systems Ten Systems: 10 systems reviewed and negative Constitutional: denies: Fever, Chills Cardiac: denies: Chest pain / pressure Respiratory: denies: Dyspnea GI: reports: Nausea, Vomiting Musculoskeletal: reports: Joint pain Neurologic: reports: Head injury, Other (dizziness). 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: Ovarian cancer, Other : Kidney stones HEENT: Other Psych: Depression, Anxiety Musculoskeletal: Osteoarthritis, Osteopenia, Chronic back pain, Other Derm: Other - Past Surgical History Past Surgical History: Yes General: Cholecystectomy, Colonoscopy /BUSINESS ETHICS PROFESSOR: Hysterectomy, Oophrectomy Derm: Other - Present Medications Home Medications: Ambulatory Orders Medication Instructions Recorded Confirmed Aspirin 81 mg PO DAILY 07/09/17 04/20/21 Pantoprazole [Protonix] 40 mg PO QDAC #30 tablet 07/21/20 04/20/21 Sertraline [Zoloft] 50 mg PO DAILY 11/24/20 04/20/21 Nystatin Cream [Mycostatin Cream] 1 applic TOP BID #1 tu 11/25/20 04/20/21 Nystatin [Nystop] 1 applic TOP BID #1 bottle 11/25/20 04/20/21 Insulin Aspart [NovoLOG] 12 unit SUBQ TIDWM 02/28/21 04/20/21 Insulin Glargine [Lantus Solostar] 40 unit SQ HS 02/28/21 04/20/21 Lisinopril [Zestril] 10 mg PO DAILY 02/28/21 04/20/21 Ondansetron Odt [Zofran] 4 mg TL Q6H PRN #10 tablet 03/31/21 04/20/21 - Allergies Allergies/Adverse Reactions: Allergies Allergy/AdvReac Type Severity Reaction Status Date / Time No Known Drug Allergies Allergy Verified 04/20/21 21:26 - Social History Does the pt smoke?: No Smoking Status: Never smoker Does the pt drink ETOH?: No Does the pt have substance abuse?: No - Immunizations Immunizations are current?: Yes - POLST Patient has POLST: No POLST Status: Full Code PD ED PE NORMAL - Vitals Vital signs reviewed: Yes - General General: No acute distress, Other (alert and oriented) - HEENT HEENT: PERRL, EOMI, Moist mucous membranes, Pharynx benign, Other (frontal hematoma) - Neck Neck: No bony TTP, Other (unable to clear c spine 2/2 distracting injury. patient unable to tolerate c collar) - Cardiac Cardiac: RRR - Respiratory Respiratory: No respiratory distress, Clear bilaterally - Abdomen Abdomen: Non tender, Non distended - Back Back: No spinal TTP - Derm Derm: Normal color, Warm and dry - Extremities Extremities: Other (R hip tender with rom) - Neuro Neuro: No motor deficit, No sensory deficit Eye Opening: Spontaneous Motor: Obeys Commands Verbal: Oriented GCS Score: 15 - Psych Psych: Normal mood, Normal affect Results - Vitals Vitals: Vital Signs - 24 hr 04/20/21 04/20/21 21:26 23:29 Temperature 36.3 C L Heart Rate 95 96 Respiratory 16 16 Rate Blood Pressure 152/90 H 145/89 H O2 Saturation 100 100 Oxygen O2 Source Room air - Labs Labs: Laboratory Tests 04/20/21 04/20/21 04/20/21 22:43 22:43 22:43 WBC 10.5 RBC 4.15 L Hgb 14.0 Hct 37.9 MCV 91.3 MCH 33.7 H MCHC 36.9 H RDW 13.5 Plt Count 179 MPV 9.9 Neut # (Auto) 9.1 H Lymph # (Auto) 0.8 L [place] # (Auto) 0.6 Eos # (Auto) 0.0 Baso # (Auto) 0.0 Absolute Nucleated RBC 0.00 Nucleated RBC % 0.0 Sodium 137 Potassium 3.6 Chloride 100 L Carbon Dioxide 24 Anion Gap 13.0 BUN 13 Creatinine 0.7 Estimated GFR (MDRD) 81 L Glucose 426 H Calcium 9.0 Total Bilirubin 1.8 H AST 13 ALT 11 Alkaline Phosphatase 66 Troponin I High Sens 7.8 Total Protein 6.2 L Albumin 3.4 Globulin 2.8 Albumin/Globulin Ratio 1.2 Lipase 47 Ethyl Alcohol < 5.0 PD MEDICAL DECISION MAKING - ED course ED course: STEMI called immediately on receipt of EKG. [facility] life flight can't flight so will go ALS. need to confirm no head bleed prior to aspirin. d/w Dr. Nikolas Ruby for transfer. wet read of CT head without acute bleeding. 325 asa ordered. Departure - Departure Disposition: 02 Transfer Acute Care Hosp Clinical Impression: STEMI (ST elevation myocardial infarction), Dizziness, Fall from standing, Head trauma Condition: Stable Discharge Date/Time: 04/20/21 23:21
[2021-04-20 23:06] LABS: BASOPHILS % (AUTO) 0.4 %; EOSINOPHILS % (AUTO) 0.4 %; HCT - HEMATOCRIT 37.9 % (37.0-47.0); LYMPHOCYTES # (AUTO) 0.8 10^3/uL (1.5-3.5); LYMPHOCYTES % (AUTO) 7.2 %; MEAN CORPUSCULAR HEMOGLOBIN 33.7 pg (27.0-31.0); MEAN CORPUSCULAR HGB CONC 36.9 g/dL (32.0-36.0); MEAN CORPUSCULAR VOLUME 91.3 fL (81.0-99.0); MEAN PLATELET VOLUME 9.9 fL (7.9-10.8); MONOCYTES # (AUTO) 0.6 10^3/uL (0.0-1.0); MONOCYTES % (AUTO) 5.4 %; NEUTROPHILS # (AUTO) 9.1 10^3/uL (1.5-6.6); PLT - PLATELET COUNT 179 10^3/uL (130-450); RED BLOOD COUNT 4.15 10^6/uL (4.20-5.40); RED CELL DISTRIBUTION WIDTH 13.5 % (12.0-15.0); WHITE BLOOD COUNT 10.5 x10^3/uL (4.8-10.8)
[2021-04-20] MEDS ORDERED: ASPIRIN 325 MG TABLET PO STA (23:12)
[2021-04-20 23:21] LABS: ALBUMIN 3.4 g/dL (3.2-5.5); ALBUMIN/GLOBULIN RATIO 1.2 (1.0-2.2); ALKALINE PHOSPHATASE 66 IU/L (42-121); ALT ALANINE AMINOTRANSFERASE 11 IU/L (10-60); AST ASPARTATE AMINOTRANSFERASE 13 IU/L (10-42); BILIRUBIN,TOTAL 1.8 mg/dL (0.2-1.0); BUN - BLOOD UREA NITROGEN 13 mg/dL (6-20); CARBON DIOXIDE - CO2 24 mmol/L (21-32); CHLORIDE 100 mmol/L (101-111); CREATININE 0.7 mg/dL (0.4-1.0); ETOH - ETHANOL < 5.0 mg/dL; GFR - MDRD 81 (>89); GLUCOSE 426 mg/dL (70-100); LIPASE 47 U/L (22-51); POTASSIUM 3.6 mmol/L (3.5-5.0); SODIUM 137 mmol/L (135-145); TOTAL PROTEIN 6.2 g/dL (6.7-8.2)
[2021-04-20 23:31] VITALS: BP 145/89
--- NOTE | 2021-04-20 23:52 | XRAY Report ---
PROCEDURE: Chest 1 View X-Ray INDICATIONS: fall from standing, dizziness TECHNIQUE: One view of the chest was acquired. COMPARISON: None FINDINGS: Surgical changes and devices: None. Lungs and pleura: No pleural effusions or pneumothorax. Lungs are clear. Mediastinum: Mediastinal contours appear normal. Heart size is normal. Bones and chest wall: No suspicious bony lesions. Overlying soft tissues appear unremarkable. IMPRESSION: No acute cardiopulmonary abnormality Reviewed by: Viraj Emery on 04/20/2021 11:52 PM [facility] Approved by: Viraj Emery on 04/20/2021 11:52 PM [facility] Station ID: [id number]
--- NOTE | 2021-04-20 23:54 | CT Report ---
PROCEDURE: CERVICAL SPINE WO INDICATIONS: Neck trauma, midline tenderness TECHNIQUE: Noncontrast 3 mm thick sections acquired from the skull base to the T4 level. Sagittal and coronal r eformats were then constructed. For radiation dose reduction, the following was used: automated exp osure control, adjustment of mA and/or kV according to patient size. COMPARISON: None. FINDINGS: Image quality: Excellent. Bones: Multilevel degenerative changes. No fracture or subluxation. Soft tissues: Prevertebral soft tissues are normal in thickness. No paravertebral hematomas. No ap ical pneumothoraces. IMPRESSION: 1. No acute traumatic abnormality of the cervical spine. 2. Multilevel degenerative changes. Reviewed by: Viraj Emery on 04/20/2021 11:53 PM [facility] Approved by: Viraj Emery on 04/20/2021 11:53 PM [facility] Station ID: [id number]
--- NOTE | 2021-04-20 23:55 | CT Report ---
PROCEDURE: HEAD WO INDICATIONS: Head trauma, mod-severe TECHNIQUE: Noncontrast 4.5 mm thick angled axial sections acquired from the foramen magnum to the vertex. For r adiation dose reduction, the following was used: automated exposure control, adjustment of mA and/or kV according to patient size. COMPARISON: None. FINDINGS: Image quality: Excellent. CSF spaces: Basal cisterns are patent. No extra-axial fluid collections. Ventricles are normal in size and shape. Brain: No midline shift. No intracranial masses or hemorrhage. [place]-white matter interface is norm al. Subcortical and periventricular hypodensities are consistent with microvascular ischemic disease and age-related cerebral volume loss. There is ventriculomegaly due to underlying atrophy. Skull and face: Calvarium and visualized facial bones are intact, without suspicious lesions. Sinuses: Visualized sinuses and mastoids are clear. IMPRESSION: 1. No acute intracranial abnormality. 2. Microvascular ischemic disease and age-related cerebral volume loss. 3. Ventriculomegaly is likely due to underlying atrophy. Reviewed by: Viraj Emery on 04/20/2021 11:55 PM [facility] Approved by: Viraj Emery on 04/20/2021 11:55 PM [facility] Station ID: [id number]
--- NOTE | 2021-04-20 23:58 | XRAY Report ---
PROCEDURE: Hip w/Pelvis 2-3V RT INDICATIONS: HIP PAIN S/P FALL TECHNIQUE: AP pelvis with lateral view(s) of the right hip(s). COMPARISON: None. FINDINGS: Bones: AP view of the pelvis and lateral view of the right hip were performed. The lateral view is no t a true lateral. Both hips have degenerative changes. Soft tissues: The visualized bowel gas pattern is normal. No suspicious soft tissue calcifications. Vasculature has atherosclerotic calcifications. IMPRESSION: The right hip is not well evaluated on this study due to not being a true lateral. A fra cture is suspected. Recommend repeat lateral view of the right hip. Reviewed by: Viraj Emery on 04/20/2021 11:57 PM PST Approved by: Viraj Emery on 04/20/2021 11:57 PM PST Station ID: [id number]
== END 2021-04-20 23:21 | disposition short-term general hospital (02) ==
LOC: EDUNIT# → ED 21:17
DX: I21.3 ST elevation (STEMI) myocardial infarction of unspecified site (principal); S09.90XA Unspecified injury of head, initial encounter; W18.30XA Fall on same level, unspecified, initial encounter; I10 Essential (primary) hypertension; E11.42 Type 2 diabetes mellitus with diabetic polyneuropathy; Z79.4 Long term (current) use of insulin
CPT/HCPCS: 36415; 70450; 71045; 72125; 73502; 80053; 83690; 84484; 85025; 93005; 99284; 99285; A9270; G0480; 80320

== ENCOUNTER 2021-04-20 23:35 | Outpatient (CLI) | payer MEDICARE, OTHER | END 2021-04-20 23:36 | disposition short-term general hospital (02) | LOC: EMS 23:35 | PROVIDERS: ATTEND Emergency Medicine | DX: I21.3 ST elevation (STEMI) myocardial infarction of unspecified site (principal) | CPT/HCPCS: A0425; A0426 ==

== ENCOUNTER 2021-04-28 13:27 | Outpatient (CLI) | payer MEDICARE, OTHER ==
[2021-04-28 13:46] LABS: BASOPHILS % (AUTO) 0.3 %; EOSINOPHILS # (AUTO) 0.2 10^3/uL (0.0-0.7); EOSINOPHILS % (AUTO) 2.1 %; HCT - HEMATOCRIT 29.2 % (37.0-47.0); HGB - HEMOGLOBIN 10.4 g/dL (12.0-16.0); LYMPHOCYTES # (AUTO) 1.3 10^3/uL (1.5-3.5); MEAN CORPUSCULAR HEMOGLOBIN 33.1 pg (27.0-31.0); MEAN CORPUSCULAR HGB CONC 35.6 g/dL (32.0-36.0); MEAN PLATELET VOLUME 9.9 fL (7.9-10.8); MONOCYTES # (AUTO) 0.9 10^3/uL (0.0-1.0); MONOCYTES % (AUTO) 9.9 %; NEUTROPHILS # (AUTO) 6.3 10^3/uL (1.5-6.6); NEUTROPHILS % (AUTO) 72.2 %; PLT - PLATELET COUNT 275 10^3/uL (130-450); RED BLOOD COUNT 3.14 10^6/uL (4.20-5.40); WHITE BLOOD COUNT 8.8 x10^3/uL (4.8-10.8)
[2021-04-28 14:03] LABS: ALBUMIN 2.4 g/dL (3.2-5.5); ALBUMIN/GLOBULIN RATIO 0.7 (1.0-2.2); BILIRUBIN,TOTAL 1.1 mg/dL (0.2-1.0); CALCIUM 8.8 mg/dL (8.5-10.3); CREATININE 0.7 mg/dL (0.4-1.0); POTASSIUM 3.8 mmol/L (3.5-5.0); TOTAL PROTEIN 5.7 g/dL (6.7-8.2)
[2021-04-28 19:54] LABS: ESTIMATED AVERAGE GLUCOSE 166 mg/dL (70-100); HEMOGLOBIN A1c% 7.4 % (4.27-6.07)
== END 2021-04-28 13:28 | disposition home or self-care (01) ==
LOC: LAB.R 13:27
DX: E43 Unspecified severe protein-calorie malnutrition (principal); I35.0 Nonrheumatic aortic (valve) stenosis; E11.8 Type 2 diabetes mellitus with unspecified complications
CPT/HCPCS: 80053; 83036; 85025

== ENCOUNTER 2021-05-06 15:50 | Emergency (ER) | payer MEDICARE, OTHER ==
[2021-05-06] MEDS ORDERED: SODIUM CHLORIDE 0.9% 1,000 ML IV ONE (16:21)
--- NOTE | 2021-05-06 16:32 | ED Physician Documentation ---
History of Present Illness - Stated complaint Stated Complaint: FATIGUE - Chief complaint Chief Complaint: General - History obtained from History obtained from: Patient, Other (RN report) - Additonal information Additional information: Patient with recent right femur fracture status post fixation presenting from acute rehab facility with fatigue, diarrhea and nausea for the last 3 days. Patient states that she currently feels hungry but has not been eating or drinking very much. She has not been ambulating very much. She reports her pain is at times controlled.Patient's provider at the rehab facility had ordered for IV hydration but they were unable to obtain IV access. Patient was then transported to the emergency department by rehab transport. Patient denies headache, fever, Chest pain or difficulty breathing.No falls since recent hospitalization.Patient is unsure of her last dose of pain medication. Review of Systems Ten Systems: 10 systems reviewed and negative Constitutional: denies: Fever Cardiac: denies: Chest pain / pressure Respiratory: denies: Cough GI: reports: Nausea, Diarrhea : denies: Dysuria Neurologic: reports: Generalized weakness. 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, Other : Kidney stones HEENT: Other Psych: Depression, Anxiety Musculoskeletal: Osteoarthritis, Osteopenia, Chronic back pain, Other Derm: Other - Past Surgical History Past Surgical History: Yes General: Cholecystectomy, Colonoscopy /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, Oophrectomy Derm: Other - Present Medications Home Medications: Ambulatory Orders Medication Instructions Recorded Confirmed Aspirin 81 mg PO DAILY 07/09/17 04/20/21 Pantoprazole [Protonix] 40 mg PO QDAC #30 tablet 07/21/20 04/20/21 Sertraline [Zoloft] 50 mg PO DAILY 11/24/20 04/20/21 Nystatin Cream [Mycostatin Cream] 1 applic TOP BID #1 tu 11/25/20 04/20/21 Nystatin [Nystop] 1 applic TOP BID #1 bottle 11/25/20 04/20/21 Insulin Aspart [NovoLOG] 12 unit SUBQ TIDWM 02/28/21 04/20/21 Insulin Glargine [Lantus Solostar] 40 unit SQ HS 02/28/21 04/20/21 Lisinopril [Zestril] 10 mg PO DAILY 02/28/21 04/20/21 Ondansetron Odt [Zofran] 4 mg TL Q6H PRN #10 tablet 03/31/21 04/20/21 - Allergies Allergies/Adverse Reactions: Allergies Allergy/AdvReac Type Severity Reaction Status Date / Time No Known Drug Allergies Allergy Verified 05/06/21 16:00 - Social History Does the pt smoke?: No Smoking Status: Never smoker Does the pt drink ETOH?: No Does the pt have substance abuse?: No - Immunizations Immunizations are current?: Yes - POLST Patient has POLST: No POLST Status: Full Code PD ED PE NORMAL - General General: Alert and oriented X 3, No acute distress, Well developed/nourished - HEENT HEENT: PERRL, Other (Right periorbital contusion appears nonacute) - Cardiac Cardiac: RRR - Respiratory Respiratory: No respiratory distress, Clear bilaterally - Abdomen Abdomen: Normal bowel sounds, Soft, Non tender, Non distended - Extremities Extremities: Other (Well-healing incision to right hip with no erythema, tenderness) - Neuro Neuro: No motor deficit, No sensory deficit, Normal speech - Psych Psych: Normal mood Results - Vitals Vitals: Vital Signs - 24 hr 05/06/21 05/06/21 05/06/21 15:56 18:00 19:25 Temperature 36.0 C L Heart Rate 92 88 88 Respiratory 18 20 20 Rate Blood Pressure 127/52 L 115/69 115/69 O2 Saturation 100 100 100 Oxygen O2 Source Room air - EKG (time done) 16:33 Other comments: Other comments (Significant motion artifact in multiple leads affecting interpretation, plan to repeat EKG when patient is more calm) 1735 Rhythm: NSR [place]: Normal Ischemia: No: ST elevation c/w ischemia - Labs Labs: Laboratory Tests 05/06/21 05/06/21 05/06/21 17:07 17:07 17:07 WBC 10.7 RBC 3.16 L Hgb 10.7 L Hct 29.1 L MCV 92.1 MCH 33.9 H MCHC 36.8 H RDW 13.0 Plt Count 397 MPV 9.2 Neut # (Auto) 8.0 H Lymph # (Auto) 1.4 L [place] # (Auto) 1.1 H Eos # (Auto) 0.2 Baso # (Auto) 0.0 Absolute Nucleated RBC 0.00 Nucleated RBC % 0.0 Sodium 139 Potassium 3.3 L Chloride 102 Carbon Dioxide 26 Anion Gap 11.0 BUN 24 H Creatinine 0.6 Estimated GFR (MDRD) 97 Glucose 147 H Calcium 8.6 Total Bilirubin 0.8 AST 22 ALT 13 Alkaline Phosphatase 81 Troponin I High Sens 9.3 Total Protein 6.1 L Albumin 2.8 L Globulin 3.3 Albumin/Globulin Ratio 0.8 L Lipase 41 05/06/21 17:07 WBC RBC Hgb Hct MCV MCH MCHC RDW Plt Count MPV Neut # (Auto) Lymph # (Auto) [place] # (Auto) Eos # (Auto) Baso # (Auto) Absolute Nucleated RBC Nucleated RBC % Sodium Potassium Chloride Carbon Dioxide Anion Gap BUN Creatinine Estimated GFR (MDRD) Glucose Calcium Total Bilirubin AST ALT Alkaline Phosphatase Troponin I High Sens Total Protein Albumin Globulin Albumin/Globulin Ratio Lipase 40 PD MEDICAL DECISION MAKING - ED course ED course: Patient with recent hip surgery presenting for evaluation of generalized fatigue and poor oral intake. On arrival patient's vital signs are stable. She has no abdominal tenderness.She denies chest pain or difficulty breathing.Labs and EKG obtained.Initial EKG is with significant motion artifact. Repeat EKGWithout signs of acute ischemia. Patient denies any chest pain or difficulty breathing. Chest x-ray is clear.CBC and chemistries are essentially stable. Patient has received IV hydration due to recent poor oral intake. Potassium repleted orally. troponin is negative. Patient does not appear septic And again has no abdominal tenderness on exam. Patient to follow-up with her primary care physician Departure - Departure Disposition: 01 Home, Self Care Clinical Impression: Weakness, Hypokalemia Condition: Stable Instructions: Hypokalemia Dc, ED Weakness [facility] Follow-Up: KRANTHI BARBER MD [Primary Care Provider] - Comments: Please follow-up with your primary care physician in 3 to 5 days. Return the emergency department with any worsening of your symptoms or any new concerns. Discharge Date/Time: 05/06/21 19:27
--- NOTE | 2021-05-06 17:08 | XRAY Report ---
PROCEDURE: Chest 1 View X-Ray INDICATIONS: Chest Pain TECHNIQUE: One view of the chest was acquired. COMPARISON: Chest radiograph 04/20/2021 FINDINGS: Surgical changes and devices: None. Lungs and pleura: No pleural effusions or pneumothorax. Lungs are clear. Mediastinum: Mediastinal contours appear normal. Heart size is normal. Bones and chest wall: No suspicious bony lesions. Overlying soft tissues appear unremarkable. IMPRESSION: No acute cardiopulmonary abnormality. Reviewed by: Víctor Madrigal MD on 05/06/2021 5:06 PM [facility] Approved by: Víctor Madrigal MD on 05/06/2021 5:06 PM [facility] Station ID: [id number]
[2021-05-06 17:19] LABS: BASOPHILS % (AUTO) 0.3 %; EOSINOPHILS # (AUTO) 0.2 10^3/uL (0.0-0.7); EOSINOPHILS % (AUTO) 1.9 %; HCT - HEMATOCRIT 29.1 % (37.0-47.0); HGB - HEMOGLOBIN 10.7 g/dL (12.0-16.0); LYMPHOCYTES # (AUTO) 1.4 10^3/uL (1.5-3.5); LYMPHOCYTES % (AUTO) 12.7 %; MEAN CORPUSCULAR HEMOGLOBIN 33.9 pg (27.0-31.0); MEAN CORPUSCULAR HGB CONC 36.8 g/dL (32.0-36.0); MEAN CORPUSCULAR VOLUME 92.1 fL (81.0-99.0); MEAN PLATELET VOLUME 9.2 fL (7.9-10.8); MONOCYTES # (AUTO) 1.1 10^3/uL (0.0-1.0); MONOCYTES % (AUTO) 9.8 %; NEUTROPHILS % (AUTO) 74.6 %; PLT - PLATELET COUNT 397 10^3/uL (130-450); RED BLOOD COUNT 3.16 10^6/uL (4.20-5.40); WHITE BLOOD COUNT 10.7 x10^3/uL (4.8-10.8)
[2021-05-06 17:38] LABS: ALBUMIN 2.8 g/dL (3.2-5.5); ALBUMIN/GLOBULIN RATIO 0.8 (1.0-2.2); BILIRUBIN,TOTAL 0.8 mg/dL (0.2-1.0); CALCIUM 8.6 mg/dL (8.5-10.3); CREATININE 0.6 mg/dL (0.4-1.0); POTASSIUM 3.3 mmol/L (3.5-5.0); TOTAL PROTEIN 6.1 g/dL (6.7-8.2)
[2021-05-06] MEDS ORDERED: POTASSIUM CHLORIDE 20 MEQ TABLET PO STA (17:39)
[2021-05-06 18:09] VITALS: BP 115/69
== END 2021-05-06 19:27 | disposition home or self-care (01) ==
LOC: ED 15:50
DX: E87.6 Hypokalemia (principal); G89.18 Other acute postprocedural pain; R53.1 Weakness; E11.42 Type 2 diabetes mellitus with diabetic polyneuropathy; Z79.4 Long term (current) use of insulin; I10 Essential (primary) hypertension
CPT/HCPCS: 36415; 71045; 80053; 83690; 84484; 85025; 93005; 96360; 96361; 99282; 99284; A9270

== ENCOUNTER 2021-05-06 19:29 | Outpatient (CLI) | payer MEDICARE, OTHER | END 2021-05-06 23:59 | disposition home or self-care (01) | LOC: EMS 19:29 | PROVIDERS: ATTEND Emergency Medicine | DX: F03.90 Unspecified dementia, unspecified severity, without behavioral disturbance, psychotic disturbance, mood disturbance, and anxiety (principal); R41.0 Disorientation, unspecified; Z74.01 Bed confinement status | CPT/HCPCS: A0425; A0428 ==

== ENCOUNTER 2021-05-27 19:07 | Outpatient (CLI) | payer MEDICARE, OTHER | END 2021-05-27 19:08 | disposition short-term general hospital (02) | LOC: EMS 19:07 | DX: R22.41 Localized swelling, mass and lump, right lower limb (principal); R23.8 Other skin changes; Z98.890 Other specified postprocedural states | CPT/HCPCS: A0425; A0429 ==